=== PATIENT | female | born 1945 | race Caucasian/White ===

== ENCOUNTER → 2023-05-13 07:26 | Outpatient (CLI) | payer MEDICARE, BC, SELFPAY ==
[2023-05-13 08:25] LABS: Add Manual Diff / Slide Review NO; Basophils Absolute Auto 100 /uL (0-100); Basophils Percent Auto 0.5 % (0-2); Eosinophils Absolute Auto 400 /uL (0-450); Eosinophils Percent Auto 3.4 % (2-4); Hematocrit 43.4 % (36-46); Hemoglobin 14.5 g/dL (12.0-16.0); Lymphocytes Absolute Auto 2700 /uL (1100-4500); Lymphocytes Percent Auto 22.3 % (25-40); Mean Corpuscular HGB Conc 33.4 % (30-36); Mean Corpuscular Hemoglobin 29.6 PG (26-34); Mean Corpuscular Volume 88.5 fL (80-100); Monocytes Absolute Auto 1000 /uL (0-900); Monocytes Percent Auto 7.9 % (3-14); Neutrophils Absolute Auto 8100 /uL (1500-7000); Neutrophils Percent Auto 65.9 % (50-75); Platelet Count 170 X10^3/uL (150-400); Red Cell Distribution Width 14.9 % (11.6-14.8); White Blood Cell Count 12.3 X10^3/uL (4.5-11.0)
[2023-05-13 08:47] LABS: Alanine Aminotransferase 27 IU/L (<35); Albumin 3.9 g/dL (3.5-5.0); Albumin Globulin Ratio 1.6 (1.0-2.8); Alkaline Phosphatase 74 U/L (38-126); Aspartate Aminotransferase 26 IU/L (14-36); BUN Creatinine Ratio 30.3 (6-22); Bilirubin Total 0.8 mg/dL (0.2-1.3); Blood Urea Nitrogen 23 mg/dL (7-17); Calcium 9.5 mg/dL (8.4-10.2); Carbon Dioxide 28 mmol/L (22-32); Chloride 108 mmol/L (98-107); Cholesterol 142 mg/dL (140-199); Estimated Glomerular Filt Rate > 60 mL/min (>60); Globulin 2.5 g/dL (1.7-4.1); Glucose 88 mg/dL (80-110); HDL Cholesterol 47 mg/dL (40-60); HEMOLYSIS < 15 (0-50); LDL Cholesterol Calculated 78 mg/dL (<100); Potassium 4.5 mmol/L (3.4-5.1); Sodium 141 mmol/L (137-145); Total Protein 6.4 g/dL (6.3-8.2); Triglycerides 87 mg/dL (35-150)
[2023-05-13 09:21] LABS: TSH w/ Reflex to FT4 2.14 uIU/mL (0.47-4.68)
== END ==
PROVIDERS: PCP Family Medicine; Referring Provider Pediatrics; Visit Provider Pediatrics
DX: E03.9 Hypothyroidism, unspecified (principal); L40.9 Psoriasis, unspecified; J45.909 Unspecified asthma, uncomplicated; L30.9 Dermatitis, unspecified; M81.0 Age-related osteoporosis without current pathological fracture; T78.40XA Allergy, unspecified, initial encounter
CPT/HCPCS: 36415; 80053; 80061; 82306; 84443; 85025

== ENCOUNTER → 2023-06-04 08:24 | Outpatient (CLI) | payer MEDICARE, BC, SELFPAY ==
--- NOTE | 2023-06-04 08:26 | DI.RAD.S_ITS ---
PROCEDURE: XR CHEST 2V INDICATIONS: pedal edema x 3 days; hx HF TECHNIQUE: 2 views of the chest were acquired. COMPARISON: None. FINDINGS: Surgical changes and devices: None. Lungs and pleura: Linear bandlike opacities present at both mid lungs, probably scarring and/or atelectasis. There is prominence of the pulmonary interstitium and the pulmonary vasculature appears prominent. No pleural effusion or pneumothorax. Mediastinum: Cardiac silhouette is enlarged. Bones and chest wall: No suspicious bony abnormalities. Soft tissues appear unremarkable. IMPRESSION: Findings consistent with mild fluid overload/CHF. Linear and bandlike opacities present in both lungs, likely atelectasis and/or scarring but aspiration or pneumonia are difficult to exclude. Dictated by: Armani Albarran M.D. on 06/04/2023 at 8:46 Approved by: Armani Albarran M.D. on 06/04/2023 at 8:49
[2023-06-04 08:48] LABS: Add Manual Diff / Slide Review NO; Basophils Absolute Auto 200 /uL (0-100); Basophils Percent Auto 1.1 % (0-2); Eosinophils Absolute Auto 500 /uL (0-450); Eosinophils Percent Auto 3.8 % (2-4); Hematocrit 45.7 % (36-46); Hemoglobin 15.3 g/dL (12.0-16.0); Lymphocytes Absolute Auto 2800 /uL (1100-4500); Lymphocytes Percent Auto 19.4 % (25-40); Mean Corpuscular HGB Conc 33.5 % (30-36); Mean Corpuscular Hemoglobin 29.9 PG (26-34); Mean Corpuscular Volume 89.2 fL (80-100); Monocytes Absolute Auto 1100 /uL (0-900); Monocytes Percent Auto 7.3 % (3-14); Neutrophils Absolute Auto 9800 /uL (1500-7000); Neutrophils Percent Auto 68.4 % (50-75); Platelet Count 206 X10^3/uL (150-400); Red Blood Cell Count 5.12 X10^6/uL (4.0-5.2); Red Cell Distribution Width 14.6 % (11.6-14.8); White Blood Cell Count 14.4 X10^3/uL (4.5-11.0)
[2023-06-04 09:03] LABS: Alanine Aminotransferase 34 IU/L (<35); Albumin 4.1 g/dL (3.5-5.0); Albumin Globulin Ratio 1.4 (1.0-2.8); Alkaline Phosphatase 76 U/L (38-126); Aspartate Aminotransferase 31 IU/L (14-36); BUN Creatinine Ratio 29.7 (6-22); Blood Urea Nitrogen 22 mg/dL (7-17); Calcium 9.6 mg/dL (8.4-10.2); Carbon Dioxide 27 mmol/L (22-32); Chloride 109 mmol/L (98-107); Estimated Glomerular Filt Rate > 60 mL/min (>60); Glucose 114 mg/dL (80-110); HEMOLYSIS 18 (0-50); Potassium 4.8 mmol/L (3.4-5.1); Sodium 141 mmol/L (137-145); Total Protein 7.1 g/dL (6.3-8.2)
[2023-06-04 09:10] LABS: NT-proBNP (BNP-Adult 18+) 95 pg/mL (<450)
== END ==
PROVIDERS: PCP Family Medicine; Referring Provider Student in an Organized Health Care Education/Training Program; Visit Provider Student in an Organized Health Care Education/Training Program
DX: R06.02 Shortness of breath (principal); R60.0 Localized edema
CPT/HCPCS: 36415; 71046; 80053; 83880; 85025

== ENCOUNTER → 2023-07-06 09:09 | Outpatient (CLI) | payer MEDICARE, BC, SELFPAY ==
[2023-07-06 10:04] LABS: Add Manual Diff / Slide Review NO; Basophils Absolute Auto 100 /uL (0-100); Basophils Percent Auto 0.9 % (0-2); Eosinophils Absolute Auto 500 /uL (0-450); Eosinophils Percent Auto 3.9 % (2-4); Hematocrit 41.6 % (36-46); Hemoglobin 14.1 g/dL (12.0-16.0); Lymphocytes Absolute Auto 3100 /uL (1100-4500); Lymphocytes Percent Auto 23.9 % (25-40); Mean Corpuscular HGB Conc 33.9 % (30-36); Mean Corpuscular Hemoglobin 29.6 PG (26-34); Mean Corpuscular Volume 87.3 fL (80-100); Monocytes Absolute Auto 1100 /uL (0-900); Monocytes Percent Auto 8.7 % (3-14); Neutrophils Absolute Auto 8100 /uL (1500-7000); Neutrophils Percent Auto 62.6 % (50-75); Platelet Count 235 X10^3/uL (150-400); Red Blood Cell Count 4.76 X10^6/uL (4.0-5.2); Red Cell Distribution Width 13.8 % (11.6-14.8)
[2023-07-06 10:30] LABS: Alanine Aminotransferase 29 IU/L (<35); Albumin 3.7 g/dL (3.5-5.0); Albumin Globulin Ratio 1.3 (1.0-2.8); Alkaline Phosphatase 73 U/L (38-126); Aspartate Aminotransferase 30 IU/L (14-36); BUN Creatinine Ratio 36.2 (6-22); Bilirubin Total 0.7 mg/dL (0.2-1.3); Blood Urea Nitrogen 25 mg/dL (7-17); Calcium 9.7 mg/dL (8.4-10.2); Carbon Dioxide 26 mmol/L (22-32); Chloride 107 mmol/L (98-107); Estimated Glomerular Filt Rate > 60 mL/min (>60); Globulin 2.8 g/dL (1.7-4.1); Glucose 82 mg/dL (80-110); HEMOLYSIS < 15 (0-50); Lipase 35 U/L (23-300); Potassium 4.5 mmol/L (3.4-5.1); Sodium 139 mmol/L (137-145); Total Protein 6.5 g/dL (6.3-8.2)
== END ==
PROVIDERS: PCP Family Medicine; Referring Provider Family Medicine; Visit Provider Family Medicine
DX: R10.32 Left lower quadrant pain (principal); R60.9 Edema, unspecified; K29.70 Gastritis, unspecified, without bleeding
CPT/HCPCS: 36415; 80053; 83690; 85025

== ENCOUNTER → 2023-07-07 11:16 | Outpatient (CLI) | payer MEDICARE, BC, SELFPAY ==
--- NOTE | 2023-07-07 11:21 | DI.CT.S_ITS ---
PROCEDURE: CT ABDOMEN PELVIS W CON INDICATIONS: left lower quadrant pain TECHNIQUE: After the administration of IV contrast, axial sections were acquired from the lung bases to the pubic symphysis. Coronal and sagittal reformats were performed. For radiation dose reduction, the following was used: automated exposure control, adjustment of mA and/or kV according to patient size. COMPARISON: None. FINDINGS: Image quality: Excellent. Lung bases: Unremarkable. Heart: No significant findings. ABDOMEN: Liver: Unremarkable. Gallbladder: Unremarkable. Biliary ducts: Unremarkable. Pancreas: Unremarkable. Spleen: Calcified granulomas can be seen within the spleen. The spleen demonstrates normal size and demonstrates no suspicious lesion. Adrenal Glands: Unremarkable. Kidneys and Ureters: There is a nonobstructing right-sided kidney stone, as on series 2, image 45 measuring 6 mm and 500 Hounsfield units. Simple appearing water density left renal cysts are seen. The kidneys demonstrate normal size and enhance symmetrically. There is no hydronephrosis. Stomach and Bowel: There is moderate sigmoid diverticulosis. Moderate wall thickening can be seen. Minimal surrounding inflammatory change can be seen. More proximal colon is within normal limits. The stomach is decompressed at the time of this study, limiting its evaluation. No dilated loops of small bowel are seen. Apparent prior appendectomy. Peritoneum: No abnormal intraperitoneal fluid. No free air. Ventral Wall: A trace periumbilical hernia is seen, containing fat. Abdominal Nodes: No retroperitoneal or mesenteric adenopathy by size criteria. Vessels: Aorta and inferior vena cava are normal in size. Atherosclerotic calcification is noted. PELVIS: Pelvic Organs: The uterus appears normal for age. There is a 5.1 cm right adnexal mass, as on series 3, image 37. Bladder: Unremarkable. Pelvic Nodes: No enlarged lymph nodes. Miscellaneous: No inguinal hernias are seen. Bones: At L3 vertebral body hemangioma is seen, as on series 4, image 29. Focal L5-S1 degenerative change is seen. Milder degenerative changes are seen elsewhere. IMPRESSION: Mild diverticulitis, without findings of perforation or abscess. When clinically appropriate (following adequate treatment of the patient's current clinical episode) a colonoscopy is recommended for further evaluation for a potential underlying mass (if not already recently done). There is a 5.1 cm right adnexal mass. Please consider an indolent cystic neoplasm in a patient of this age. - For further workup, please consider a dedicated follow-up pelvic ultrasound. Additional findings: Nonobstructing right-sided kidney stone Simple appearing left renal cysts Trace fat containing periumbilical hernia L3 vertebral body hemangioma Focal L5-S1 degenerative change Apparent prior appendectomy Dictated by: Joseph Cortes M.D. on 07/07/2023 at 15:28 Approved by: Joseph Cortes M.D. on 07/07/2023 at 15:34
[2023-07-07 15:40] LABS: Appearance Urine UA CLEAR; Bilirubin Urine UA NEGATIVE (NEGATIVE); Color Urine UA YELLOW; Glucose Urine UA NEGATIVE (Negative); Ketones Urine UA NEGATIVE (NEGATIVE); Leukocyte Esterase Urine UA 1+ (NEGATIVE); Nitrite Urine UA NEGATIVE (Negative); Occult Blood Urine UA NEGATIVE (Negative); Protein Urine UA NEGATIVE (Negative); Urobilinogen Urine UA 0.2 E.U./dL (0.2)
[2023-07-07 15:41] LABS: pH Urine UA 6.5 (4.5-8.0)
[2023-07-07 16:06] LABS: RBC Urine None Seen (0-5/HPF); WBC Urine 5-10/HPF (0-5/HPF)
[2023-07-07 16:07] LABS: Bacteria Urine Many (>30); Culture Indicated Urine Specimen Cultured; Renal Epithelial Cells Urine 1-5/HPF (0-1/HPF); Squamous Epithelial Cell Urine 1-5 /HPF (0-5/HPF)
[2023-07-07 19:08] LABS: Occult Blood 1 Negative (Negative); Occult Blood 2 Negative (Negative); Occult Blood 3 Negative (Negative)
[2023-07-13 18:07] LABS: Calprotectin, Stool 251 ug/g (0-120)
== END ==
PROVIDERS: PCP Family Medicine; Referring Provider Family Medicine; Visit Provider Family Medicine
DX: K92.1 Melena (principal); K57.32 Diverticulitis of large intestine without perforation or abscess without bleeding; R10.32 Left lower quadrant pain; R60.9 Edema, unspecified; K29.70 Gastritis, unspecified, without bleeding; R19.00 Intra-abdominal and pelvic swelling, mass and lump, unspecified site; N20.0 Calculus of kidney; N28.1 Cyst of kidney, acquired; D18.09 Hemangioma of other sites; M47.817 Spondylosis without myelopathy or radiculopathy, lumbosacral region
CPT/HCPCS: 74177; 81001; 82270; 83993; 87077; 87086; 87186; Q9967

== ENCOUNTER → 2023-07-23 13:25 | Outpatient (CLI) | payer MEDICARE, BC, SELFPAY ==
--- NOTE | 2023-07-23 13:27 | DI.US.S_ITS ---
PROCEDURE: US PELVIC COMPLETE INDICATIONS: RIGHT OVARIAN MASS? PRIOR CT TECHNIQUE: Real-time scanning was performed of the pelvic organs, with image documentation. Additional endovaginal scanning was necessary due to incomplete visualization of the adnexal and endometrial structures by transabdominal scanning. COMPARISON: [facility], CT, CT ABDOMEN PELVIS W CON, 07/07/2023, 11:27. FINDINGS: Uterus: Uterus is anteverted and normal in size at 7.4 x 2.9 x 3.7 cm. The myometrium is heterogeneous. The endometrium measures 4 mm combined thickness. The ovaries are not definitely visualized. There is a cystic structure in the region of the patient's right adnexa measuring 6 x 2.8 x 2.5 cm in maximal dimension. Other: No pathologic free abdominal or pelvic fluid. IMPRESSION: Cystic lesion in the region of the patient's right adnexa measuring 6 x 2.8 x 2.5 cm in maximal dimension. Given the imaging findings further workup of this with a female pelvic MRI with without intravenous gadolinium may be of further clinical value for further characterization. . We strive to produce accurate, complete, and clear reports of imaging services. To assist us in improving patient care, this report was composed using standard report templates and voice recognition software. Therefore, it may contain abnormal punctuation, insertions and/or omissions. Occasional wrong-word or sound-alike substitutions may occur. Though we review the report and make efforts to correct it, we do recommend that the report be read carefully in proper context to recognize any text inaccuracies. Dictated by: Henry Cardona M.D. on 07/23/2023 at 16:44 Approved by: Henry Cardona M.D. on 07/23/2023 at 16:50
== END ==
PROVIDERS: PCP Family Medicine; Referring Provider Family Medicine; Visit Provider Family Medicine
DX: N83.8 Other noninflammatory disorders of ovary, fallopian tube and broad ligament (principal)
CPT/HCPCS: 76856

== ENCOUNTER → 2023-09-12 09:46 | Outpatient (CLI) | payer MEDICARE, BC, SELFPAY ==
--- NOTE | 2023-09-12 09:47 | DI.MRI.S_ITS ---
PROCEDURE: MR PELVIS WO/W CON INDICATIONS: cyst, right side. 5-6cm. TECHNIQUE: Coronal HASTE, sagittal breath-hold T2 FSE; axial T1 FSE with and without fat saturation through the pelvis. Optional long- and short-axis uterine nonbreath-hold T2 FSE through the uterus. Sagittal or axial dynamic VIBE during administration of contrast. Post-contrast axial or coronal VIBE/2-D FLASH with fat saturation from the iliac crests to the symphysis. Optional diffusion weighted imaging and ADC may be performed. COMPARISON: [facility], US, US PELVIC COMPLETE, 07/23/2023, 13:40. [facility], CT, CT ABDOMEN PELVIS W CON, 07/07/2023, 11:27. FINDINGS: Image quality: Excellent. Uterus: Uterus is normal in size. Endometrium is normal in thickness. Junctional zone is normal in thickness at 12 mm or less. Nabothian cysts are present. Adnexa: Right ovarian cyst measuring 6 x 2.8 x 2.5 cm. The cyst has a smooth wall, without internal papillary projections. Urinary system: Bladder wall is normal in thickness. Distal ureters are non distended. Urethra appears normal in morphology. Nodes and vessels: No pelvic or inguinal adenopathy by size criteria. Iliac vessels are normal in size. Bowel and peritoneum: No pathologic free pelvic fluid. Inferior colon and small bowel loops are normal in caliber. Extensive colonic diverticula. There is a 5.3 cm segment of mild wall thickening with mild mural edema within the sigmoid colon. Soft tissues: No inguinal hernias. No findings of pelvic floor incompetence in the absence of provocation. Bones: Marrow demonstrates normal overall signal. IMPRESSION: O-RADS 2 right ovarian cyst. Recommend 1 year follow-up with ultrasound. Suspected mild/early diverticulitis of the sigmoid colon. Alternatively, malignancy is also consideration given wall thickening. Correlate with symptoms and consider GI referral for outpatient diagnostic colonoscopy if negative for pain or symptoms. Dictated by: Hakan Booker M.D. on 09/14/2023 at 8:49 Approved by: Hakan Booker M.D. on 09/14/2023 at 8:54
== END ==
LOC: MRI 09:47
PROVIDERS: Family Provider Family Medicine; PCP Family Medicine; Referring Provider Family Medicine; Visit Provider Family Medicine
DX: N83.8 Other noninflammatory disorders of ovary, fallopian tube and broad ligament (principal); N83.201 Unspecified ovarian cyst, right side; K57.90 Diverticulosis of intestine, part unspecified, without perforation or abscess without bleeding
CPT/HCPCS: 72197; A9579

== ENCOUNTER 2023-11-09 09:56 | Day surgery (SDC) | payer MEDICARE, BC, SELFPAY ==
--- NOTE | 2023-11-09 | PATH_ITS ---
[facility] Accession Number: [id number] No. of containers..01 Tissue . 01 Material submitted: . colon - CECAL POLYP . 01 Diagnosis: CECUM, POLYP: Tubular adenoma. [facility] 11/11/2023 1110 Local . 01 Electronically signed: . Jewels Min MD, Pathologist NPI- [id number] . 01 Gross description: . CECAL POLYP: Received in formalin is 1 fragment(s) of bolanos, soft tissue measuring 0.3 x 0.3 x 0.2 cm submitted entirely in 1 cassette(s) /ROMINA 11/10/20237 Local . 01 Pathologist provided ICD-10: D12.0 . 01 CPT . 149010 Specimen Comment: A courtesy copy of this report has been sent to [phone] Performed at: 01 [facility] [address] [place] [address], [place], [place] [id number] MD Luke Fry MD Phone: [phone]
[2023-11-09 10:21] VITALS: BP 132/66; PULSE 79; RESP 20; TEMP 36.3; O2SAT 97
[2023-11-09] MEDS: LACTATED RINGERS 1,000 ML 42 ML IV (10:26)
[2023-11-09] MEDS: OXYMETAZOLINE NASAL SPRAY 30 ML 2 SPRAYS NASAL (13:03)
--- NOTE | 2023-11-09 13:05 | PM.HP.1 ---
History of Present Illness History of Present Illness Date Patient Seen: 11/09/23 Time Patient Seen: 13:05 Chief complaint: Screening Colonoscopy Narrative: 77-year-old woman here for screening colonoscopy. No abdominal concerns. No family history of intestinal malignancy. [facility] Medical History Osteoarthritis (~2019) Arthritis Chicken pox (~1949) History of urinary incontinence (~2019) Gastritis (~2018) Thyroid nodule (~2003) Hyperthyroidism (~2003) Essential hypertension (~2022) Actinic keratosis Psoriasis (~1961) Eczema (~1961) Asthma Allergies Personality disorder (~1959) Bulimia (~1959) Osteoporosis (~2014) Foot pain (~1963) Chronic back pain Measles (~1949) TMJ (dislocation of temporomandibular joint) Recurrent sinusitis Glaucoma (~2018) Cataracts, bilateral (~2018) Hypothyroidism Surgical History Cyst, dermoid, arm Skin tumor (~1964) Anesthesia History of tubal ligation (~1983) Family History Father Cancer Mother Cancer Brother Cancer Brother Cancer Brother Suicide Grandfather History of heart disease Grandmother Cancer Family/Other History of heart disease Social History Smoking Status: Never smoker alcohol intake: never Meds Home Medications and Allergies Home Medications Medication Instructions Recorded Confirmed Type budesonide 90 mcg/actuation breath 2 inh inhalation BID #1 ea 05/07/23 11/09/23 Rx activated powder inhaler albuterol sulfate 90 mcg/actuation 2 puff inhalation Q4-6H PRN wheeze 05/10/23 11/09/23 Rx aerosol inhaler (Ventolin HFA) or SOB #3 units arformoterol 15 mcg/2 mL solution inhalation 05/10/23 09/10/23 History for nebulization montelukast 10 mg tablet 10 mg PO BEDTIME #90 tabs 05/10/23 11/09/23 Rx azelastine 205.5 mcg (0.15 %) 2 spray intranasal DAILY #30 mL 06/04/23 11/09/23 Rx nasal spray alprazolam 0.25 mg tablet 0.125 mg (1/2 x 0.25 mg) PO ONCE 08/31/23 11/09/23 Rx PRN claustrophobia re MRI #2 tabs telmisartan 40 1 tab PO DAILY #90 tabs 09/10/23 11/09/23 Rx mg-hydrochlorothiazide 12.5 mg tablet levothyroxine 50 mcg tablet 50 mcg PO DAILY #90 tabs 09/24/23 11/09/23 Rx fluticasone furoate 100 1 inh inhalation DAILY #60 ea 10/18/23 11/09/23 Rx mcg-vilanterol 25 mcg/dose inhalation powder (Breo Ellipta) hydrochlorothiazide 12.5 mg tablet 12.5 mg PO DAILY #30 tabs 10/25/23 11/09/23 Rx semaglutide 0.25 mg or 0.5 mg (2 See Rx Instructions SUBCUT QWEEK 11/09/23 11/09/23 Rx mg/3 mL) subcutaneous pen injector #6 mL ([employer]) Allergies Allergy/AdvReac Type Severity Reaction Status Date / Time No Known Drug Allergies Allergy Verified 11/09/23 10:11 Exam Vital Signs (past 8 hours): - 11/09/23 10:21 Temperature 97.4 F L Pulse Rate 79 Respiratory Rate 20 Blood Pressure 132/66 Pulse Oximetry 97 Oxygen Delivery Method Room Air Oxygen Delivery Method Room Air Narrative Exam Narrative: General adult woman alert oriented no acute distress Chest nonlabored respiration Extremities warm well perfused Assessment & Plan Assessment & Plan narrative: The patient requires colorectal screening and colonoscopy is recommended. Technical details were discussed. Risks, benefits, alternatives explained. Risks including but not limited to myocardial infarction, aspiration, bleeding, pain, missed lesion, incomplete examination, need for further radiographic studies, colonic perforation, and need for major abdominal surgery were discussed. All questions were answered to their satisfaction, and they are in agreement with this plan.
--- NOTE | 2023-11-09 13:41 | P.OP.COLON_ITS ---
Operative Date/Time/Diagnoses Date of procedure: 11/09/23 Time of procedure: 13:41 Pre-op diagnosis: Colorectal screening Procedure & Clinicians Study performed: Colonoscopy and polypectomy Same procedure as scheduled: Yes Indications: Colorectal screening Surgeon: Antonino Rolle Procedure Notes Procedure in detail: The history and physical was performed/updated and the patient is ASA class is 3. The procedure was discussed in detail with the patient. Potential risks complications including infection, bleeding, missed diagnosis, perforation, need for surgery, and were explained. Their questions were answered and informed consent was obtained. Patient was brought to the procedure room and placed standard monitoring equipment. The patient's vital signs were monitored continuously throughout the entire procedure. Prior to starting time-out was performed. The patient was placed in the left lateral recumbent position. Procedural sedation was administered by anesthesia. Examination began with a thorough inspection of the perianal area there was no evidence of fissures, fistulae, external hemorrhoids or cutaneous malignancy. The colonoscopy scope was then placed into the anal canal and was advanced to the cecum, which was identified by the ileocecal valve, the appendiceal orifice and the confluence of the taenia. The scope was then slowly withdrawn examining colon thoroughly in all directions, irrigating it of any residual stool. The scope was retroflexed within the rectum The patient tolerated the procedure well. They will be discharged once criteria are met. The prep was of good/excellent quality. The withdrawl time was 7 mi nutes. FINDINGS * Extensive sigmoid diverticulosis * Cecum 3 mm polyp removed with biopsy forceps * Internal hemorrhoids Specimen(s): other (Cecal polyp) Impression: Colonic polyp x1 Post-procedure Recommendations: High fiber diet Plan for aftercare: Follow-up is dependent on pathology findings. Disposition: same day surgery
[2023-11-09 13:45] VITALS: BP 131/63; PULSE 83; RESP 17; TEMP 36.4; O2SAT 96
[2023-11-09 13:51] VITALS: BP 121/71; PULSE 76; RESP 14; TEMP 36.4; O2SAT 97
[2023-11-09 13:55] VITALS: BP 145/78; PULSE 77; RESP 17; TEMP 36.4; O2SAT 97
[2023-11-09 14:05] VITALS: BP 140/80; PULSE 76; RESP 16; O2SAT 97
== END 2023-11-09 14:11 | disposition home or self-care (01) ==
PROVIDERS: Family Provider Family Medicine; PCP Family Medicine; Referring Provider Surgery; Visit Provider Surgery
PROC: 0DJD8ZZ Inspection of Lower Intestinal Tract, Via Natural or Artificial Opening Endoscopic (ICD-10-PCS; CPT 45378; principal; 2023-11-09 10:45)
DX: Z12.11 Encounter for screening for malignant neoplasm of colon (principal); K57.30 Diverticulosis of large intestine without perforation or abscess without bleeding; K64.8 Other hemorrhoids; D12.0 Benign neoplasm of cecum
CPT/HCPCS: 45380; J2704

== ENCOUNTER 2023-12-03 13:45 | Outpatient (RCR) | payer MEDICARE, BC, SELFPAY ==
--- NOTE | 2023-09-29 13:40 | PT.OIE ---
Current Diagnoses Other chronic pain (09/29/23) Pain in right knee (09/29/23) Pain in left knee (09/29/23) Dorsalgia, unspecified (09/29/23) Past Medical History (Last Updated 08/11/23 @ 10:09 by Ericka Schneider DO) Actinic keratosis Allergies Asthma Bulimia (~1959) Cataracts, bilateral (~2019) Chronic back pain Eczema Foot pain (~1964) Glaucoma (~2019) Hypothyroidism Measles Osteoporosis Personality disorder (~1959) Psoriasis Recurrent sinusitis TMJ (dislocation of temporomandibular joint) Past Surgical History (Last Reviewed 06/04/23 @ 09:13 by Tammy Carbone PA-C) Anesthesia History of tubal ligation (~1983) Visit Care Team Role Provider Type Ericka Schneider DO Attending Provider Physician Family Provider Primary Care Provider Referring Provider Specialty: Medical Address: [address] [place] [address], [address], [address] Email: [email or web address] Physical Therapy Initial Evaluation PT-OP-A Visit Information Start: 09/29/23 09:02 Freq: Status: Active Protocol: Document 09/29/23 09:02 NM (Rec: 09/29/23 10:30 NM [id number]) Out-Patient Physical Therapy Visit Information Visit Information Visit Type Initial Evaluation Visit Note KX after 19th visit Visit Start Time 09:00 Visit Stop Time 09:45 Total Visit Minutes 45 Visit Number 1 Evaluation Information Evaluation Date 09/29/23 Precautions Precautions Fall risk PT-OP-B Current Condition Start: 09/29/23 09:02 Freq: Status: Active Protocol: Document 09/29/23 09:02 NM (Rec: 09/29/23 10:30 NM [id number]) Current Condition History of Current Condition Onset Date early 2021 Current Complaints BLE weakness, pain in anterolateral hips History of Current Condition Pt presents to clinic with occasional pain in her lumbar spine, along with B hip and knee pain beginning in early 2021. Pt reports that she used to be sedentary and has lost a lot of weight; however, she is just very weak and has pain with activity. She reports difficulty with ambulation, particularly due to pain in the front of her hips. 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 She developed lymphedema recently and is being treated for that as well. Overall, she reports extensive fatigue with activities, particularly when having to stand or ambulate for greater than 10 minutes; relieved with rest. She also reports knee/hip pain with stairs, particulary during descent. She reports no falls but states that she feels off balance during standing and gait. She used to use a spc for gait for the past 10-11 months, but reports that she has felt stronger in the last 2-3 weeks and hasn't needed the spc (taking the stairs 5- 6x/day at home). Previous meniscus injury to L knee; current injury to L shoulder from lifting an object last week. 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 Treatment Goals Patient/Caregiver Goals Decrease pain, get back to ballroom dancing Current Functional Impairments (Reported) Functional Limitations- ADL's Difficulty with ADLs involving fwd trunk flexion Functional Limitations- Mobility/Gait Unable to walk/stand >10 min due to B hip and knee pain, prn spc use PT-OP-C Subjective Start: 09/29/23 09:02 Freq: Status: Active Protocol: Document 09/29/23 09:02 NM (Rec: 09/29/23 10:30 NM [id number]) OP-PT Subjective Patient Comments Patient Comments see pt report Patient Questionnaires Lower Extremity Functional Scale LEFS Score 32/80 Oswestry Low Back Index Oswestry Score 40/100 OP-PT Pain Assessment Location Knees Pain Location Details B knees either side of patella Intensity 0 Scale Used Numeric (0 - 10) Description Aching,Sharp Description- Other worst 4/10 with activity Frequency Occasional Pain Duration during ambulation, standing; relieved almost immediately with sitting Radiating Location none Pain Aggravating Factors Position,Changing Position,ADL 's,Activity,Exercise,Standing, Walking Pain Alleviating Factors Heat,Sitting,Rest Hips Pain Location Details B lateral hips near greater trochanter, occasional anterior hip pain Intensity 0 Scale Used Numeric (0 - 10) Description Aching,Sharp Description- Other L 8/10 worst, R 2/10 hip worst Frequency Occasional Pain Duration during ambulation, standing; relieved almost immediately with sitting Radiating Location none Pain Aggravating Factors Position,Changing Position,ADL 's,Activity,Exercise,Standing, Walking,Stair Climbing Pain Alleviating Factors Heat,Sitting,Rest lumbar spine Pain Location Details L4-L5- midline Intensity 0 Scale Used Numeric (0 - 10) Description Aching,Sharp Description- Other worst 3/10 Frequency Occasional Pain Duration during fwd trunk flexion Radiating Location none, localized, no nerve symptoms Pain Aggravating Factors Position,Changing Position, Bending Pain Alleviating Factors Heat,Sitting,Rest Home Pain Medication Use Pain Medications Used Yes: prn aleve for inflammation Pain Behaviors Pain Behaviors Guarding,Holding Area Comments Pain Comments Reports most discomfort at B hips, L>R PT-OP-D Balance Start: 09/29/23 09:02 Freq: Status: Active Protocol: Document 09/29/23 09:02 NM (Rec: 09/29/23 10:30 NM [id number]) OP-PT Balance Assessment Sitting Balance Static Sitting Balance Ability Normal Dynamic Sitting Balance Ability Normal Standing Balance Static Standing Balance Ability Fair Dynamic Standing Balance Ability Fair Balance Tests Romberg Romberg 10 seconds, mild trunk sway, no LOB Single Limb Standing Single Limb- Right 1 second Single Limb- Left 2 seconds Tandem Tandem Standing difficulty with getting into position; maintains <2 sec Espinal Fall Scale Copyright Permission PT-OP-E Functional Tests Start: 09/29/23 09:02 Freq: Status: Active Protocol: Document 09/29/23 09:02 NM (Rec: 09/29/23 10:30 NM [id number]) Functional Tests 30 Second Sit to Stand Test Score 10 reps Comments no pain reported but slow; no UE use Tinetti Balance and Gait Assessment Balance Score 11 Gait Score 7 Composite Score 18/28 PT-OP-F Manual Assessment Start: 09/29/23 09:02 Freq: Status: Active Protocol: Document 09/29/23 09:02 NM (Rec: 09/29/23 10:30 NM [id number]) Manual Assessments Soft Tissue Assessment Soft Tissue Mobility Assessment Mild soft tissue restrictions of B lumbar paraspinals/QL, but not tender to palpation. Demos B hip flexor tightness, pain with R hip pain Joint Mobility Assessment Joint Mobility Assessment Full L hip PROM. Limited R hip PROM, demos guarding with flexion verena into IR>ER and painful. No instability of B knees noted. No clicking, popping, locking, giving out of B hips or knees. PT-OP-G Mobility & Gait Start: 09/29/23 09:02 Freq: Status: Active Protocol: Document 09/29/23 09:02 NM (Rec: 09/29/23 10:30 NM [id number]) OP Mobility Evaluation Bed Mobility Rolling Difficulty with rolling due to pain. Sits up from supine to EOB then transfers to prone OP Gait Assessment Gait Gait Assistance Required: Independent Distance (Feet) 150 Assistive Devices Assistive Device None Gait Deviations General Gait Pattern Antalgic,Flexed Trunk Factors Limiting Gait Function Factors Limiting Gait Function Decreased Activity Tolerance, Decreased Strength,Limited Range of Motion,Pain,Poor Balance Comments Gait Comments Antalgic gait pattern with fwd flexed trunk posture, mild- mod trunk sway. Lateral trunk deviation PT-OP-H Neuro Start: 09/29/23 09:02 Freq: Status: Active Protocol: Document 09/29/23 09:02 NM (Rec: 09/29/23 10:30 NM [id number]) Sensation Evaluation Gross Sensation Gross Sensation WNL Comments Summary Comments BLE intact to light touch sensation equally despite reported numbness in L 2nd and 3rd toes Deep Tendon Reflex & Clonus Assessment Deep Tendon Reflex Bilateral Patellar Deep Tendon Reflex 1+ Diminished PT-OP-J Posture/Palpation/Skin Start: 09/29/23 09:02 Freq: Status: Active Protocol: Document 09/29/23 09:02 NM (Rec: 09/29/23 10:30 NM [id number]) Posture Evaluation Position Standing Evaluation View posterior, lateral Head/C-Spine Posture Forward Head L-Spine Posture Increased Lordosis Shoulder Posture (L) Forward,(R) Forward,(L) Elevated Scapula Posture (L) Protracted,(R) Protracted Arm Posture (L) Internally Rotated,(R) Internally Rotated Pelvis Posture Anteriorly Tilted,(L) Iliac Crest Superior Weight Distribution Weight Shifted Right Knee Posture (L) Genu Varus,(R) Genu Varus Patellar Posture (L) Superior,(R) Superior Palpation Assessment Location Lumbar spine Palpation Location L4-S1, SI joints, Palpation Findings Tenderness Palpation Details Tender to palpation along spinous processes of L4-S1, L4 is most tender. B hips Palpation Location greater trochanter, gluteals Palpation Findings Soft Tissue Tightness,Spasm, Muscle Guarding,Tenderness Palpation Details Tenderness to B greater trochanters (L>R), worse with internal/external rotation. Muscle guarding and tenderness of B gluteals, L>R. PT-OP-K Range of Motion Start: 09/29/23 09:02 Freq: Status: Active Protocol: Document 09/29/23 09:02 NM (Rec: 09/29/23 10:30 NM [id number]) Lumbar Spine Range of Motion Lumbar Spine Active Percentage Testing Position Standing Flexion 80 Extension 100 Rotation Left 100 Rotation Right 100 Lateral Flexion Left 75 Lateral Flexion Right 75 Comments Minimal low back pain with trunk flexion, none with any other motions. Cued to keep knees straight during flex/ext motions Hip Goniometric Range of Motion Hip Right Flexion w/Knee Flexed 90 Internal Rotation 20 External Rotation 20 Comments Passive hip flexion 110 deg. Hip/greater trochanter pain with internal rotation Left Flexion w/Knee Flexed 115 Internal Rotation 25 External Rotation 30 Comments Passive hip flexion 110 deg. Hip/greater trochanter pain with internal rotation. Knee Goniometric Range of Motion Knee ROM Limitations Comments B knee ROM WFL PT-OP-L Special Tests Start: 09/29/23 09:02 Freq: Status: Active Protocol: Document 09/29/23 09:02 NM (Rec: 09/29/23 10:30 NM [id number]) Special Tests Lumbar Spine Special Tests Straight Leg Raise Test Results negative Comments does not reproduce local or referred pain Michael/Quadrant Test Results negative Comments does not reproduce local or referred pain Hip Special Tests Scour Test Test Results negative bilaterally Anterior Labral Test Test Results negative bilaterally FADIR Test Results positive bilaterally (L>R) Comments Reproduces pain along B greater trochanter and posterior glutes. Moderate muscle guarding verena with L. Minimal pain reported in anterior hip/groin PT-OP-M Strength Start: 09/29/23 09:02 Freq: Status: Active Protocol: Document 09/29/23 09:02 NM (Rec: 09/29/23 10:30 NM [id number]) Trunk Strength Trunk Manual Muscle Testing Testing Position supine, sitting Flexion 3+ Fair+ Extension 4 Good Rotation Left 4 Good Rotation Right 4 Good Lateral Flexion Left 4 Good Lateral Flexion Right 4 Good Comments Able to withstand minimal resisted flexion, but not painful. Attempts to compensate, poor functional core stabilization verena with rolling Hip Strength Hip Manual Muscle Testing Right Flexion (L2) 3+ Fair+ Extension (S1) 3+ Fair+ Abduction 3+ Fair+ Adduction 3+ Fair+ External Rotation 3+ Fair+ Internal Rotation 3+ Fair+ Comments Pain with resisted IR > flexion Left Flexion (L2) 4- Good- Extension (S1) 4- Good- Abduction 4- Good- Adduction 4- Good- External Rotation 4- Good- Internal Rotation 3+ Fair+ Comments Pain with resisted IR Knee Strength Knee Manual Muscle Testing Right Flexion (S2) 4 Good Extension (L3) 4 Good Left Flexion (S2) 4 Good Extension (L3) 4 Good Ankle/Foot Strength Ankle and Foot Manual Muscle Testing Right Dorsiflexion (L4) 4+ Good+ Plantarflexion (S1) 4+ Good+ Left Dorsiflexion (L4) 4+ Good+ Plantarflexion (S1) 4+ Good+ PT-OP-Q Treatments Start: 09/29/23 09:02 Freq: Status: Active Protocol: Document 09/29/23 09:02 NM (Rec: 09/29/23 10:30 NM [id number]) Self-Care/Home Management Treatment Education Patient Education Body Mechanics,Fall Risk,Pain Management,Posture,Safety Other Education Educated on use of spc with balance difficulties, verena during inclement weather and to decrease fall risk. Brief education regarding rolling in bed, will need further education on log rolling or other rolling mechanics to decrease pain. PT-OP-T Assessment and Plan Start: 09/29/23 09:02 Freq: Status: Active Protocol: Document 09/29/23 09:02 NM (Rec: 09/29/23 10:30 NM [id number]) Physical Therapy Assessment Rehab Potential Rehabilitation Potential Good Evaluation Complexity Number of Personal Factors/Comorbidities 3 or More Number of Body Systems Impaired 4 or More Clinical Presentation at Evaluation Stable Impairments Impairments Activity Tolerance,Balance, Edema,Functional Activities, Functional Mobility,Gait, Integument,Pain,Posture,ROM, Sensation,Soft Tissue Mobility ,Strength,Transfers Goals Seven Impairment balance Impairment Tinetti 18/28 Short Term Goal (STG) Pt will improve Tinetti score to at least 20/28 in order to demonstate decrease fall risk and improved balance STG Duration 5 weeks Heat Treating Operator Goal (LTG) Pt will improve Tinetti score to at least 24/28 in order to demonstate decrease fall risk and improved balance LTG Duration 10 weeks Six Impairment balance Impairment tandem stance <2 seconds, difficulty getting into position Short Term Goal (STG) Pt will be able to position without assistance in tandem stance without LOB in order to demonstrate improved balance required for gait, recreational dancing STG Duration 5 weeks Heat Treating Operator Goal (LTG) Pt will be able to stand at least 15 seconds in tandem stance without LOB in order to demonstrate improved balance required for gait LTG Duration 10 weeks Five Impairment gait Impairment Pt reports unable to ambulate more than 10 minutes before a seated rest break due to pain Short Term Goal (STG) Pt will be able to ambulate using LRAD or no AD for community distances (at least 600 ft) in order to demonstrate improved BLE strength, pain management, and activity tolerance STG Duration 5 weeks Heat Treating Operator Goal (LTG) Pt will report that she can ambulate using LRAD or no AD for at least 20 minutes in order to demonstrate improved BLE strength, pain management, and activity tolerance LTG Duration 10 weeks Four Impairment strength Impairment R hip strength 3+/5 MMT Short Term Goal (STG) Pt will improve R hip global hip strength to at least 4/5 in order to demonstrate improved hip strength needed for gait, balance, and stairs STG Duration 5 weeks Care Home Goal (LTG) Pt will improve R hip global hip strength to at least 4+/5 in order to demonstrate improved hip strength needed for gait, balance, and stairs LTG Duration 10 weeks Three Impairment strength Impairment L hip strength 4-/5 except IR 3+/5 MMT Short Term Goal (STG) Pt will improve L global hip strength to at least 4/5 in order to demonstrate improved hip strength needed for gait, balance, and stairs STG Duration 5 weeks Care Home Goal (LTG) Pt will improve L global hip strength to at least 4+/5 in order to demonstrate improved hip strength needed for gait, balance, and stairs LTG Duration 10 weeks Two Impairment strength Impairment 30 second STS = 10 Care Home Goal (LTG) Pt will be able to perform at least 15 sit to stands within 30 seconds without compensation or pain in order to demonstrate improved BLE strength and tolerance for activity. LTG Duration 10 weeks One Impairment function Impairment LEFS 32/80 Care Home Goal (LTG) Pt will increase LEFS score to greater than 50/80 in order to demonstrate improved tolerance for ADLs and activity. LTG Duration 10 weeks Assessment Summary Assessment Pt is a 77 y.o. female presenting with BLE weakness and pain in her B hips, B knees, and lumbar spine. Her primary concerns are difficulty with gait and balance due to pain, weakness, and activity limitation. She demonstrates nearly full trunk ROM with reports of pain during forward trunk flexion; she demonstrates slight weaknesses in trunk strength, most limited in flexion. Bilateral hip AROM and PROM is limited, particularly in flexion. She is more limited and reports pain with B hip IR and some during hip ER, with the LLE more painful than RLE. Pt demonstrates weakness of B hips and knees, RLE only 3+/5 for all motions while LLE 4-/ 5 MMT except internal rotation 3+/5. Pt has negative Michael/ quadrant, straight leg raise, labral tests; however, pain is reproduced with FADIR test both in anterior hip and gluteals. Pt is tender to palpation at midline L4-S1, B greater trochanters (L>R), and B gluteal muscles (L>R). Gait is antalgic; pt occasionally uses a single point cane for ambulation but did not bring it to evaluation. She reports that she is unable to stand or ambulate for greater than 10 minutes due to pain and weakness before needing a seated rest break; thus, pt's ability to participate in ADLs /IADLs is limited. Symptoms are most consistent with glute weakness and hip OA though pt does not have a diagnosis. Tinetti score 18/28, indicating fall risk; pt also unstable with narrow MANNIE, difficulty with tandem stance or changing MANNIE. PT educated pt on fall risk, safety during gait and transfers, activity modification, and POC; which pt verbalizes agreement. Pt would benefit from significant BLE strengthening, gait and balance training, education regarding activity modification and pain neuroscience in order to decrease fall risk, improve pain symptoms, and increase activity tolerance. Physical Therapy Plan Frequency and Duration Frequency of Treatment 2x/Week Duration of treatment (weeks) 10 Plan of Care Start Date 09/29/23 Plan of Care End Date 12/08/23 Therapeutic Interventions Therapeutic Interventions Balance Training,Coordination Training,Gait Training,Home Exercise Program,Joint Mobilizations,Manual Therapy, Neuromuscular Re-education, Orthotic/Prosthetic Management ,Patient/Caregiver Education, Self-Care/Home Management, Sensory Integration,Soft Tissue Mobilization,Taping, Therapeutic Activities, Therapeutic Exercises Modalities Cold Pack/Ice Massage,Hot Packs Next Visit Focus/Plan Next Note Type Treatment Note Next Visit Plan Initiate BLE strengthening: clams, SL hip abd, gentle hip flex seated, STS, LAQ, gonzalez stretch, LTR, TA activation
--- NOTE | 2023-10-04 15:25 | PT.OTN ---
Current Diagnoses Other chronic pain (10/04/23) Pain in right knee (10/04/23) Pain in left knee (10/04/23) Dorsalgia, unspecified (10/04/23) Physical Therapy Treatment Note PT-OP-A Visit Information Start: 09/29/23 09:02 Freq: Status: Active Protocol: Document 10/04/23 09:04 NM (Rec: 10/04/23 09:48 NM [id number]) Out-Patient Physical Therapy Visit Information Visit Information Visit Type Treatment Note Visit Note KX after 19th visit Visit Start Time 09:04 Visit Stop Time 09:45 Total Visit Minutes 41 Visit Number 2 Evaluation Information Evaluation Date 09/29/23 Precautions Precautions Fall risk PT-OP-B Current Condition Start: 09/29/23 09:02 Freq: Status: Active Protocol: Document 09/29/23 09:02 NM (Rec: 09/29/23 10:30 NM [id number]) Current Condition History of Current Condition Onset Date early 2021 Current Complaints BLE weakness, pain in anterolateral hips History of Current Condition Pt presents to clinic with occasional pain in her lumbar spine, along with B hip and knee pain beginning in early 2021. Pt reports that she used to be sedentary and has lost a lot of weight; however, she is just very weak and has pain with activity. She reports difficulty with ambulation, particularly due to pain in the front of her hips. 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 She developed lymphedema recently and is being treated for that as well. Overall, she reports extensive fatigue with activities, particularly when having to stand or ambulate for greater than 10 minutes; relieved with rest. She also reports knee/hip pain with stairs, particulary during descent. She reports no falls but states that she feels off balance during standing and gait. She used to use a spc for gait for the past 10-11 months, but reports that she has felt stronger in the last 2-3 weeks and hasn't needed the spc (taking the stairs 5- 6x/day at home). Previous meniscus injury to L knee; current injury to L shoulder from lifting an object last week. 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 Treatment Goals Patient/Caregiver Goals Decrease pain, get back to ballroom dancing Current Functional Impairments (Reported) Functional Limitations- ADL's Difficulty with ADLs involving fwd trunk flexion Functional Limitations- Mobility/Gait Unable to walk/stand >10 min due to B hip and knee pain, prn spc use PT-OP-C Subjective Start: 09/29/23 09:02 Freq: Status: Active Protocol: Document 10/04/23 09:04 NM (Rec: 10/04/23 09:48 NM [id number]) OP-PT Subjective Patient Comments Patient Comments Pt reports 0/10 B hip, knee, back pain. Reports no changes since IE. She reports L shoulder pain. She has a doctor appt to today, possibly for her shoulder but she doesn't know. Presents without spc today but keeps in her car PT-OP-D Balance Start: 09/29/23 09:02 Freq: Status: Active Protocol: Document 09/29/23 09:02 NM (Rec: 09/29/23 10:30 NM [id number]) OP-PT Balance Assessment Sitting Balance Static Sitting Balance Ability Normal Dynamic Sitting Balance Ability Normal Standing Balance Static Standing Balance Ability Fair Dynamic Standing Balance Ability Fair Balance Tests Romberg Romberg 10 seconds, mild trunk sway, no LOB Single Limb Standing Single Limb- Right 1 second Single Limb- Left 2 seconds Tandem Tandem Standing difficulty with getting into position; maintains <2 sec Espinal Fall Scale Copyright Permission PT-OP-E Functional Tests Start: 09/29/23 09:02 Freq: Status: Active Protocol: Document 09/29/23 09:02 NM (Rec: 09/29/23 10:30 NM [id number]) Functional Tests 30 Second Sit to Stand Test Score 10 reps Comments no pain reported but slow; no UE use Tinetti Balance and Gait Assessment Balance Score 11 Gait Score 7 Composite Score PT-OP-F Manual Assessment Start: 09/29/23 09:02 Freq: Status: Active Protocol: Document 09/29/23 09:02 NM (Rec: 09/29/23 10:30 NM [id number]) Manual Assessments Soft Tissue Assessment Soft Tissue Mobility Assessment Mild soft tissue restrictions of B lumbar paraspinals/QL, but not tender to palpation. Demos B hip flexor tightness, pain with R hip pain Joint Mobility Assessment Joint Mobility Assessment Full L hip PROM. Limited R hip PROM, demos guarding with flexion verena into IR>ER and painful. No instability of B knees noted. No clicking, popping, locking, giving out of B hips or knees. PT-OP-G Mobility & Gait Start: 09/29/23 09:02 Freq: Status: Active Protocol: Document 09/29/23 09:02 NM (Rec: 09/29/23 10:30 NM [id number]) OP Mobility Evaluation Bed Mobility Rolling Difficulty with rolling due to pain. Sits up from supine to EOB then transfers to prone OP Gait Assessment Gait Gait Assistance Required: Independent Distance (Feet) 150 Assistive Devices Assistive Device None Gait Deviations General Gait Pattern Antalgic,Flexed Trunk Factors Limiting Gait Function Factors Limiting Gait Function Decreased Activity Tolerance, Decreased Strength,Limited Range of Motion,Pain,Poor Balance Comments Gait Comments Antalgic gait pattern with fwd flexed trunk posture, mild- mod trunk sway. Lateral trunk deviation PT-OP-H Neuro Start: 09/29/23 09:02 Freq: Status: Active Protocol: Document 09/29/23 09:02 NM (Rec: 09/29/23 10:30 NM [id number]) Sensation Evaluation Gross Sensation Gross Sensation WNL Comments Summary Comments BLE intact to light touch sensation equally despite reported numbness in L 2nd and 3rd toes Deep Tendon Reflex & Clonus Assessment Deep Tendon Reflex Bilateral Patellar Deep Tendon Reflex 1+ Diminished PT-OP-J Posture/Palpation/Skin Start: 09/29/23 09:02 Freq: Status: Active Protocol: Document 09/29/23 09:02 NM (Rec: 09/29/23 10:30 NM [id number]) Posture Evaluation Position Standing Evaluation View posterior, lateral Head/C-Spine Posture Forward Head L-Spine Posture Increased Lordosis Shoulder Posture (L) Forward,(R) Forward,(L) Elevated Scapula Posture (L) Protracted,(R) Protracted Arm Posture (L) Internally Rotated,(R) Internally Rotated Pelvis Posture Anteriorly Tilted,(L) Iliac Crest Superior Weight Distribution Weight Shifted Right Knee Posture (L) Genu Varus,(R) Genu Varus Patellar Posture (L) Superior,(R) Superior Palpation Assessment Location Lumbar spine Palpation Location L4-S1, SI joints, Palpation Findings Tenderness Palpation Details Tender to palpation along spinous processes of L4-S1, L4 is most tender. B hips Palpation Location greater trochanter, gluteals Palpation Findings Soft Tissue Tightness,Spasm, Muscle Guarding,Tenderness Palpation Details Tenderness to B greater trochanters (L>R), worse with internal/external rotation. Muscle guarding and tenderness of B gluteals, L>R. PT-OP-K Range of Motion Start: 09/29/23 09:02 Freq: Status: Active Protocol: Document 09/29/23 09:02 NM (Rec: 09/29/23 10:30 NM [id number]) Lumbar Spine Range of Motion Lumbar Spine Active Percentage Testing Position Standing Flexion 80 Extension 100 Rotation Left 100 Rotation Right 100 Lateral Flexion Left 75 Lateral Flexion Right 75 Comments Minimal low back pain with trunk flexion, none with any other motions. Cued to keep knees straight during flex/ext motions Hip Goniometric Range of Motion Hip Right Flexion w/Knee Flexed 90 Internal Rotation 20 External Rotation 20 Comments Passive hip flexion 110 deg. Hip/greater trochanter pain with internal rotation Left Flexion w/Knee Flexed 115 Internal Rotation 25 External Rotation 30 Comments Passive hip flexion 110 deg. Hip/greater trochanter pain with internal rotation. Knee Goniometric Range of Motion Knee ROM Limitations Comments B knee ROM WFL PT-OP-L Special Tests Start: 09/29/23 09:02 Freq: Status: Active Protocol: Document 09/29/23 09:02 NM (Rec: 09/29/23 10:30 NM [id number]) Special Tests Lumbar Spine Special Tests Straight Leg Raise Test Results negative Comments does not reproduce local or referred pain Michael/Quadrant Test Results negative Comments does not reproduce local or referred pain Hip Special Tests Scour Test Test Results negative bilaterally Anterior Labral Test Test Results negative bilaterally FADIR Test Results positive bilaterally (L>R) Comments Reproduces pain along B greater trochanter and posterior glutes. Moderate muscle guarding verena with L. Minimal pain reported in anterior hip/groin PT-OP-M Strength Start: 09/29/23 09:02 Freq: Status: Active Protocol: Document 09/29/23 09:02 NM (Rec: 09/29/23 10:30 NM [id number]) Trunk Strength Trunk Manual Muscle Testing Testing Position supine, sitting Flexion 3+ Fair+ Extension 4 Good Rotation Left 4 Good Rotation Right 4 Good Lateral Flexion Left 4 Good Lateral Flexion Right 4 Good Comments Able to withstand minimal resisted flexion, but not painful. Attempts to compensate, poor functional core stabilization verena with rolling Hip Strength Hip Manual Muscle Testing Right Flexion (L2) 3+ Fair+ Extension (S1) 3+ Fair+ Abduction 3+ Fair+ Adduction 3+ Fair+ External Rotation 3+ Fair+ Internal Rotation 3+ Fair+ Comments Pain with resisted IR > flexion Left Flexion (L2) 4- Good- Extension (S1) 4- Good- Abduction 4- Good- Adduction 4- Good- External Rotation 4- Good- Internal Rotation 3+ Fair+ Comments Pain with resisted IR Knee Strength Knee Manual Muscle Testing Right Flexion (S2) 4 Good Extension (L3) 4 Good Left Flexion (S2) 4 Good Extension (L3) 4 Good Ankle/Foot Strength Ankle and Foot Manual Muscle Testing Right Dorsiflexion (L4) 4+ Good+ Plantarflexion (S1) 4+ Good+ Left Dorsiflexion (L4) 4+ Good+ Plantarflexion (S1) 4+ Good+ PT-OP-Q Treatments Start: 09/29/23 09:02 Freq: Status: Active Protocol: Document 10/04/23 09:04 NM (Rec: 10/04/23 09:48 NM [id number]) Cardio Equipment Recumbent Stepper (Sci-Fit) Duration (Minutes) 4 Resistance 3 Seat Position 11 Other LE only; warm up Therapeutic Exercises Supine Exercises bridge Supine Exercise Name heels at 90 deg knee flex Side bilateral Equipment Used AROM Reps/Minutes 1x10 with 3 hold Comments reports no pain LTR Supine Exercise Name for lumbar spine mobility; d/c next session depending on tolerance Side bilateral Equipment Used cued to keep hips on table Reps/Minutes 1x30 Comments reports good stretch in lumbar spine, no hip pain reported november Supine Exercise Name alternating Side bilateral Equipment Used AROM only Reps/Minutes 1x10 Comments reports minimal pain with hip flexion at end range but none w initial ROM Luther stretch Supine Exercise Name reports tightness in L hip flexors Side bilateral Equipment Used single knee to chest, opposite knee straight Reps/Minutes 2x30 Comments reports good stretch feeling, no pain; R>L tightness, before LAQ Sidelying Exercises hip abduction Sidelying Exercise Name try next session for more challenge Sitting Exercises november Sitting Exercise Name 4/10 pain deep hip pain, so d/ c to supine LAQ Sitting Exercise Name performed after luther stretch Side bilateral Resistance lvl 2 teal around ankles Reps/Minutes 2x10 ea Comments reports medium difficulty; limited knee ext ROM R>L; cued no bwd lean hip abduction Side bilateral Resistance teal tb lvl 2 around thighs Reps/Minutes 2x12 Comments reports good feedback; progress next time (trial sidelying vs side step) Standing Exercises sit <> stand Side bilateral Resistance teal tb lvl 2 Equipment Used band around thighs Reps/Minutes 2x10 Comments cues for equal wb (favors RLE) , LLE placed slightly posterior for inc WB Self-Care/Home Management Treatment Education Patient Education Home Exercise Program Other Education HEP: sit to stand with band around thighs, luther stretch, LAQ with band, seated hip abd , bridge. Pt educated on importance of performing HEP, managing pain, use of spc when weather bad or feeling unstable PT-OP-T Assessment and Plan Start: 09/29/23 09:02 Freq: Status: Active Protocol: Document 10/04/23 09:04 NM (Rec: 10/04/23 09:48 NM [id number]) Physical Therapy Assessment Goals Seven Impairment balance Impairment Tinetti 18/28 Short Term Goal (STG) Pt will improve Tinetti score to at least 20/28 in order to demonstate decrease fall risk and improved balance STG Duration 5 weeks Snf Goal (LTG) Pt will improve Tinetti score to at least 24/28 in order to demonstate decrease fall risk and improved balance LTG Duration 10 weeks Six Impairment balance Impairment tandem stance <2 seconds, difficulty getting into position Short Term Goal (STG) Pt will be able to position without assistance in tandem stance without LOB in order to demonstrate improved balance required for gait, recreational dancing STG Duration 5 weeks Snf Goal (LTG) Pt will be able to stand at least 15 seconds in tandem stance without LOB in order to demonstrate improved balance required for gait LTG Duration 10 weeks Five Impairment gait Impairment Pt reports unable to ambulate more than 10 minutes before a seated rest break due to pain Short Term Goal (STG) Pt will be able to ambulate using LRAD or no AD for community distances (at least 600 ft) in order to demonstrate improved BLE strength, pain management, and activity tolerance STG Duration 5 weeks Optical Mechanic Goal (LTG) Pt will report that she can ambulate using LRAD or no AD for at least 20 minutes in order to demonstrate improved BLE strength, pain management, and activity tolerance LTG Duration 10 weeks Four Impairment strength Impairment R hip strength 3+/5 MMT Short Term Goal (STG) Pt will improve R hip global hip strength to at least 4/5 in order to demonstrate improved hip strength needed for gait, balance, and stairs STG Duration 5 weeks Snf Goal (LTG) Pt will improve R hip global hip strength to at least 4+/5 in order to demonstrate improved hip strength needed for gait, balance, and stairs LTG Duration 10 weeks Three Impairment strength Impairment L hip strength 4-/5 except IR 3+/5 MMT Short Term Goal (STG) Pt will improve L global hip strength to at least 4/5 in order to demonstrate improved hip strength needed for gait, balance, and stairs STG Duration 5 weeks Optical Mechanic Goal (LTG) Pt will improve L global hip strength to at least 4+/5 in order to demonstrate improved hip strength needed for gait, balance, and stairs LTG Duration 10 weeks Two Impairment strength Impairment 30 second STS = 10 Optical Mechanic Goal (LTG) Pt will be able to perform at least 15 sit to stands within 30 seconds without compensation or pain in order to demonstrate improved BLE strength and tolerance for activity. LTG Duration 10 weeks One Impairment function Impairment LEFS 32/80 Snf Goal (LTG) Pt will increase LEFS score to greater than 50/80 in order to demonstrate improved tolerance for ADLs and activity. LTG Duration 10 weeks Assessment Summary Assessment Initiated BLE strengthening for future balance and gait training. Initiated sit to stands with band around thighs for increased hip abduction activation and to prevent knee valgus; cued for eccentric control with lowering, demonstrates improved control with repetition. Pt initially reported hip pain with R LAQ, which resolved after luther stretch. Pt continues to have pain with active hip flex, 4/ 10, less in supine than sitting, R>L; reports prn pain with over lateral hip with hip abduction/ER AROM during hip flex in supine. Able to perform supine marching with minimal hip pain; discontinued hip flex in sitting. Tolerated supine lumbar trunk rotation well, reporting good stretch in lumbar trunk muscles with rotation and no reports of hip pain. Cues for correct execution and to remain pain free with exercises. Pt issued HEP with luther stretch, STS, LAQ, seated hip abd, and bridge; instructed to stop if increased pain occurs. Pt educated on bringing spc to sessions and when out in community despite not feeling like she needs to use the cane for balance; pt verbalizes agreement. Pt would benefit from skilled PT to address limitations in BLE strength, mobility, and balance/gait in order to decrease fall risk and increase activity tolerance. Physical Therapy Plan Frequency and Duration Frequency of Treatment 2x/Week Duration of treatment (weeks) 10 Plan of Care Start Date 09/29/23 Plan of Care End Date 12/08/23 Therapeutic Interventions Therapeutic Interventions Balance Training,Coordination Training,Gait Training,Home Exercise Program,Joint Mobilizations,Manual Therapy, Neuromuscular Re-education, Orthotic/Prosthetic Management ,Patient/Caregiver Education, Self-Care/Home Management, Sensory Integration,Soft Tissue Mobilization,Taping, Therapeutic Activities, Therapeutic Exercises Modalities Cold Pack/Ice Massage,Hot Packs Next Visit Focus/Plan Next Note Type Treatment Note Next Visit Plan Trial: teach rolling out of bed to R (possible log roll). Possible hip mobilizations depending on tolerance Continue BLE strengthening: clams/hip ER, hip IR, SL hip abd, gentle hip flex seated vs supine, STS, LAQ, luther stretch, LTR, TA activation; trial Sharri waddell hip march with TA *Fall risk, ask her to use spc if difficulty with ambulation Update POC 10/29
--- NOTE | 2023-10-07 11:38 | PT.OTN ---
Current Diagnoses Other chronic pain (10/07/23) Pain in right knee (10/07/23) Pain in left knee (10/07/23) Dorsalgia, unspecified (10/07/23) Physical Therapy Treatment Note PT-OP-A Visit Information Start: 09/29/23 09:02 Freq: Status: Active Protocol: Document 10/07/23 09:07 NM (Rec: 10/07/23 09:47 NM [id number]) Out-Patient Physical Therapy Visit Information Visit Information Visit Type Treatment Note Visit Note KX after 19th visit Visit Start Time 09:05 Visit Stop Time 09:45 Visit Number 3 Evaluation Information Evaluation Date 09/29/23 Precautions Precautions Fall risk PT-OP-B Current Condition Start: 09/29/23 09:02 Freq: Status: Active Protocol: Document 09/29/23 09:02 NM (Rec: 09/29/23 10:30 NM [id number]) Current Condition History of Current Condition Onset Date early 2021 Current Complaints BLE weakness, pain in anterolateral hips History of Current Condition Pt presents to clinic with occasional pain in her lumbar spine, along with B hip and knee pain beginning in early 2021. Pt reports that she used to be sedentary and has lost a lot of weight; however, she is just very weak and has pain with activity. She reports difficulty with ambulation, particularly due to pain in the front of her hips. 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 She developed lymphedema recently and is being treated for that as well. Overall, she reports extensive fatigue with activities, particularly when having to stand or ambulate for greater than 10 minutes; relieved with rest. She also reports knee/hip pain with stairs, particulary during descent. She reports no falls but states that she feels off balance during standing and gait. She used to use a spc for gait for the past 10-11 months, but reports that she has felt stronger in the last 2-3 weeks and hasn't needed the spc (taking the stairs 5- 6x/day at home). Previous meniscus injury to L knee; current injury to L shoulder from lifting an object last week. 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 Treatment Goals Patient/Caregiver Goals Decrease pain, get back to ballroom dancing Current Functional Impairments (Reported) Functional Limitations- ADL's Difficulty with ADLs involving fwd trunk flexion Functional Limitations- Mobility/Gait Unable to walk/stand >10 min due to B hip and knee pain, prn spc use PT-OP-C Subjective Start: 09/29/23 09:02 Freq: Status: Active Protocol: Document 10/07/23 09:07 NM (Rec: 10/07/23 09:47 NM [id number]) OP-PT Subjective Patient Comments Patient Comments Pt reports soreness after last session in her R thigh verena quad. She reports no pain in her hips or knees. She went to the chiropractor yesterday for an alignment of her hips and shoulders; she feels better and reports that he told her that if she moves more then she won't be as sore . She did not perform her HEP due to pain. PT-OP-D Balance Start: 09/29/23 09:02 Freq: Status: Active Protocol: Document 09/29/23 09:02 NM (Rec: 09/29/23 10:30 NM [id number]) OP-PT Balance Assessment Sitting Balance Static Sitting Balance Ability Normal Dynamic Sitting Balance Ability Normal Standing Balance Static Standing Balance Ability Fair Dynamic Standing Balance Ability Fair Balance Tests Romberg Romberg 10 seconds, mild trunk sway, no LOB Single Limb Standing Single Limb- Right 1 second Single Limb- Left 2 seconds Tandem Tandem Standing difficulty with getting into position; maintains <2 sec Espinal Fall Scale Copyright Permission PT-OP-E Functional Tests Start: 09/29/23 09:02 Freq: Status: Active Protocol: Document 09/29/23 09:02 NM (Rec: 09/29/23 10:30 NM [id number]) Functional Tests 30 Second Sit to Stand Test Score 10 reps Comments no pain reported but slow; no UE use Tinetti Balance and Gait Assessment Balance Score 11 Gait Score 7 Composite Score PT-OP-F Manual Assessment Start: 09/29/23 09:02 Freq: Status: Active Protocol: Document 09/29/23 09:02 NM (Rec: 09/29/23 10:30 NM [id number]) Manual Assessments Soft Tissue Assessment Soft Tissue Mobility Assessment Mild soft tissue restrictions of B lumbar paraspinals/QL, but not tender to palpation. Demos B hip flexor tightness, pain with R hip pain Joint Mobility Assessment Joint Mobility Assessment Full L hip PROM. Limited R hip PROM, demos guarding with flexion verena into IR>ER and painful. No instability of B knees noted. No clicking, popping, locking, giving out of B hips or knees. PT-OP-G Mobility & Gait Start: 09/29/23 09:02 Freq: Status: Active Protocol: Document 09/29/23 09:02 NM (Rec: 09/29/23 10:30 NM [id number]) OP Mobility Evaluation Bed Mobility Rolling Difficulty with rolling due to pain. Sits up from supine to EOB then transfers to prone OP Gait Assessment Gait Gait Assistance Required: Independent Distance (Feet) 150 Assistive Devices Assistive Device None Gait Deviations General Gait Pattern Antalgic,Flexed Trunk Factors Limiting Gait Function Factors Limiting Gait Function Decreased Activity Tolerance, Decreased Strength,Limited Range of Motion,Pain,Poor Balance Comments Gait Comments Antalgic gait pattern with fwd flexed trunk posture, mild- mod trunk sway. Lateral trunk deviation PT-OP-H Neuro Start: 09/29/23 09:02 Freq: Status: Active Protocol: Document 09/29/23 09:02 NM (Rec: 09/29/23 10:30 NM [id number]) Sensation Evaluation Gross Sensation Gross Sensation WNL Comments Summary Comments BLE intact to light touch sensation equally despite reported numbness in L 2nd and 3rd toes Deep Tendon Reflex & Clonus Assessment Deep Tendon Reflex Bilateral Patellar Deep Tendon Reflex 1+ Diminished PT-OP-J Posture/Palpation/Skin Start: 09/29/23 09:02 Freq: Status: Active Protocol: Document 09/29/23 09:02 NM (Rec: 09/29/23 10:30 NM [id number]) Posture Evaluation Position Standing Evaluation View posterior, lateral Head/C-Spine Posture Forward Head L-Spine Posture Increased Lordosis Shoulder Posture (L) Forward,(R) Forward,(L) Elevated Scapula Posture (L) Protracted,(R) Protracted Arm Posture (L) Internally Rotated,(R) Internally Rotated Pelvis Posture Anteriorly Tilted,(L) Iliac Crest Superior Weight Distribution Weight Shifted Right Knee Posture (L) Genu Varus,(R) Genu Varus Patellar Posture (L) Superior,(R) Superior Palpation Assessment Location Lumbar spine Palpation Location L4-S1, SI joints, Palpation Findings Tenderness Palpation Details Tender to palpation along spinous processes of L4-S1, L4 is most tender. B hips Palpation Location greater trochanter, gluteals Palpation Findings Soft Tissue Tightness,Spasm, Muscle Guarding,Tenderness Palpation Details Tenderness to B greater trochanters (L>R), worse with internal/external rotation. Muscle guarding and tenderness of B gluteals, L>R. PT-OP-K Range of Motion Start: 09/29/23 09:02 Freq: Status: Active Protocol: Document 09/29/23 09:02 NM (Rec: 09/29/23 10:30 NM [id number]) Lumbar Spine Range of Motion Lumbar Spine Active Percentage Testing Position Standing Flexion 80 Extension 100 Rotation Left 100 Rotation Right 100 Lateral Flexion Left 75 Lateral Flexion Right 75 Comments Minimal low back pain with trunk flexion, none with any other motions. Cued to keep knees straight during flex/ext motions Hip Goniometric Range of Motion Hip Right Flexion w/Knee Flexed 90 Internal Rotation 20 External Rotation 20 Comments Passive hip flexion 110 deg. Hip/greater trochanter pain with internal rotation Left Flexion w/Knee Flexed 115 Internal Rotation 25 External Rotation 30 Comments Passive hip flexion 110 deg. Hip/greater trochanter pain with internal rotation. Knee Goniometric Range of Motion Knee ROM Limitations Comments B knee ROM WFL PT-OP-L Special Tests Start: 09/29/23 09:02 Freq: Status: Active Protocol: Document 09/29/23 09:02 NM (Rec: 09/29/23 10:30 NM [id number]) Special Tests Lumbar Spine Special Tests Straight Leg Raise Test Results negative Comments does not reproduce local or referred pain Michael/Quadrant Test Results negative Comments does not reproduce local or referred pain Hip Special Tests Scour Test Test Results negative bilaterally Anterior Labral Test Test Results negative bilaterally FADIR Test Results positive bilaterally (L>R) Comments Reproduces pain along B greater trochanter and posterior glutes. Moderate muscle guarding verena with L. Minimal pain reported in anterior hip/groin PT-OP-M Strength Start: 09/29/23 09:02 Freq: Status: Active Protocol: Document 09/29/23 09:02 NM (Rec: 09/29/23 10:30 NM [id number]) Trunk Strength Trunk Manual Muscle Testing Testing Position supine, sitting Flexion 3+ Fair+ Extension 4 Good Rotation Left 4 Good Rotation Right 4 Good Lateral Flexion Left 4 Good Lateral Flexion Right 4 Good Comments Able to withstand minimal resisted flexion, but not painful. Attempts to compensate, poor functional core stabilization verena with rolling Hip Strength Hip Manual Muscle Testing Right Flexion (L2) 3+ Fair+ Extension (S1) 3+ Fair+ Abduction 3+ Fair+ Adduction 3+ Fair+ External Rotation 3+ Fair+ Internal Rotation 3+ Fair+ Comments Pain with resisted IR > flexion Left Flexion (L2) 4- Good- Extension (S1) 4- Good- Abduction 4- Good- Adduction 4- Good- External Rotation 4- Good- Internal Rotation 3+ Fair+ Comments Pain with resisted IR Knee Strength Knee Manual Muscle Testing Right Flexion (S2) 4 Good Extension (L3) 4 Good Left Flexion (S2) 4 Good Extension (L3) 4 Good Ankle/Foot Strength Ankle and Foot Manual Muscle Testing Right Dorsiflexion (L4) 4+ Good+ Plantarflexion (S1) 4+ Good+ Left Dorsiflexion (L4) 4+ Good+ Plantarflexion (S1) 4+ Good+ PT-OP-Q Treatments Start: 09/29/23 09:02 Freq: Status: Active Protocol: Document 10/07/23 09:07 NM (Rec: 10/07/23 09:47 NM [id number]) Therapeutic Exercises Supine Exercises bridge Supine Exercise Name heels at 90 deg knee flex with ppt Side bilateral Resistance teal lvl 2 band around thighs Reps/Minutes 2x10 with 1 hold Comments reports no pain; cued for glute squeeze with lift LTR Supine Exercise Name for lumbar spine mobility- for low back stretch Side bilateral Equipment Used cued to keep hips on table Reps/Minutes 1x10 ea side (feels looser now) Comments reports good stretch in lumbar spine, no hip pain reported november Supine Exercise Name alternating Side bilateral Equipment Used lvl 1 light blue tb Reps/Minutes 1x10 Comments reports minimal pain with hip flexion at end range but none w initial ROM Luther stretch Supine Exercise Name reports tightness in L hip flexors (both legs on table d/ t back pain) Side bilateral Equipment Used single knee to chest, opposite knee straight Reps/Minutes 2x30 Comments reports good stretch feeling, no pain; R>L tightness, min R hip pain-dec Sidelying Exercises hip abduction Sidelying Exercise Name unable to lay on L shoulder d/ t pain Sitting Exercises HSC Side bilateral Resistance lvl 2 teal tb around ankles Reps/Minutes 2x10 Comments reports good hamstring activation, not painful; cue no trunk lean november Sitting Exercise Name no hip pain today after stretching, STM Side bilateral Resistance lvl 1 light blue tb Equipment Used band around feet Reps/Minutes 2x10 Comments cued no post trunk lean; reports medium difficulty LAQ Sitting Exercise Name performed after luther stretch , quad mobilization Side bilateral Resistance lvl 2 teal around ankles Reps/Minutes 2x10 ea Comments reports medium difficulty; limited knee ext ROM R>L; cued no bwd lean Standing Exercises Side steps Standing Exercise Name for glute med activation Side bilateral Resistance [place] green tb lvl 3 Equipment Used around thighs; prn hand support at table Reps/Minutes 3x8 ft Comments cue for foot clearance, tension band sit <> stand Side bilateral Resistance chenega tb lvl 3 Equipment Used band around thighs Reps/Minutes 2x10 Comments cues for equal wb (favors RLE) , LLE placed slightly posterior for inc WB Manual Therapy Treatment Soft Tissue Mobilization L hip Body Location quad, ITB, TFL, adductors Mobilization Type Instrument Assisted,Rolling Intensity/Depth Moderate Body Position Supine Comments Less soreness L quad, ITB, adductors, TFL compared to RLE . PT using rolling pin to promote relaxation of pt's muscles and decrease soreness. Followed up with ther-ex R hip Body Location quad, ITB, TFL, adductors Mobilization Type Instrument Assisted,Rolling Intensity/Depth Moderate Body Position Supine Comments Pt with soreness in quad > TFL , ITB, adductors. PT using rolling pin to promote relaxation of pt's muscles and decrease soreness. Educated pt on foam rolling, using of rolling pin or other massage agent as modality for pain relief. Pt reports muscle relaxation and relief after STM. Followed up with ther-ex Self-Care/Home Management Treatment Education Patient Education Home Exercise Program,Joint Protection,Pain Management Other Education Educated on pain management with modalities. Discussed with pt about not concurrently doing chiropractor with PT to determine efficacy of PT. PT also educated pt on pain neuroscience, retraining muscles with exercise and soreness/soft tissue mobilization, in addition to recent change in pt's activity /lifestyle that will lead to soreness with exercise. Educated difference btwn soreness, activation, and pain . Pt verbalizes understanding. Issued HEP with november with band as pt painfree with that exercise today; instructed to perform after stretch and muscle massage PT-OP-T Assessment and Plan Start: 09/29/23 09:02 Freq: Status: Active Protocol: Document 10/07/23 09:07 NM (Rec: 10/07/23 09:47 NM [id number]) Physical Therapy Assessment Goals Seven Impairment balance Impairment Tinetti 18/28 Short Term Goal (STG) Pt will improve Tinetti score to at least 20/28 in order to demonstate decrease fall risk and improved balance STG Duration 5 weeks [employer] Goal (LTG) Pt will improve Tinetti score to at least 24/28 in order to demonstate decrease fall risk and improved balance LTG Duration 10 weeks Six Impairment balance Impairment tandem stance <2 seconds, difficulty getting into position Short Term Goal (STG) Pt will be able to position without assistance in tandem stance without LOB in order to demonstrate improved balance required for gait, recreational dancing STG Duration 5 weeks [facility] Goal (LTG) Pt will be able to stand at least 15 seconds in tandem stance without LOB in order to demonstrate improved balance required for gait LTG Duration 10 weeks Five Impairment gait Impairment Pt reports unable to ambulate more than 10 minutes before a seated rest break due to pain Short Term Goal (STG) Pt will be able to ambulate using LRAD or no AD for community distances (at least 600 ft) in order to demonstrate improved BLE strength, pain management, and activity tolerance STG Duration 5 weeks [facility] Goal (LTG) Pt will report that she can ambulate using LRAD or no AD for at least 20 minutes in order to demonstrate improved BLE strength, pain management, and activity tolerance LTG Duration 10 weeks Four Impairment strength Impairment R hip strength 3+/5 MMT Short Term Goal (STG) Pt will improve R hip global hip strength to at least 4/5 in order to demonstrate improved hip strength needed for gait, balance, and stairs STG Duration 5 weeks [facility] Goal (LTG) Pt will improve R hip global hip strength to at least 4+/5 in order to demonstrate improved hip strength needed for gait, balance, and stairs LTG Duration 10 weeks Three Impairment strength Impairment L hip strength 4-/5 except IR 3+/5 MMT Short Term Goal (STG) Pt will improve L global hip strength to at least 4/5 in order to demonstrate improved hip strength needed for gait, balance, and stairs STG Duration 5 weeks [employer] Goal (LTG) Pt will improve L global hip strength to at least 4+/5 in order to demonstrate improved hip strength needed for gait, balance, and stairs LTG Duration 10 weeks Two Impairment strength Impairment 30 second STS = 10 [employer] Goal (LTG) Pt will be able to perform at least 15 sit to stands within 30 seconds without compensation or pain in order to demonstrate improved BLE strength and tolerance for activity. LTG Duration 10 weeks One Impairment function Impairment LEFS 32/80 [employer] Goal (LTG) Pt will increase LEFS score to greater than 50/80 in order to demonstrate improved tolerance for ADLs and activity. LTG Duration 10 weeks Assessment Summary Assessment Continued with BLE strengthening target glutes, hip flexors and quads. Began session with soft tissue mobilization to address pt soreness and to promote muscle relaxation. Pt tolerates STM to quad with rolling well. Also demos improved tolerance for exercise after quad STM and luther stretch. Initiated side steps, seated march, and HSC today. Progressed band for sit to stand and LAQ. PT educated pt to expect soreness with increased activity compared to prior lifestyle habits, pain neuroscience for greater understanding of pain vs muscle activation vs soreness. Pt requires cues for controlled motions for better muscle activation, correct execution. Issued HEP with seated march with band as pt painfree with that exercise today; instructed to perform after stretch and muscle massage. Pt would benefit from skilled PT for progressive BLE and trunk strengthening in order to improve activity tolerance, decrease pain symptoms, and improve gait/ balance for lower fall risk. Physical Therapy Plan Frequency and Duration Frequency of Treatment 2x/Week Duration of treatment (weeks) 10 Plan of Care Start Date 09/29/23 Plan of Care End Date 12/08/23 Therapeutic Interventions Therapeutic Interventions Balance Training,Coordination Training,Gait Training,Home Exercise Program,Joint Mobilizations,Manual Therapy, Neuromuscular Re-education, Orthotic/Prosthetic Management ,Patient/Caregiver Education, Self-Care/Home Management, Sensory Integration,Soft Tissue Mobilization,Taping, Therapeutic Activities, Therapeutic Exercises Modalities Cold Pack/Ice Massage,Hot Packs Next Visit Focus/Plan Next Note Type Treatment Note Next Visit Plan Trial: teach rolling out of bed to R (possible log roll). Possible hip mobilizations depending on tolerance Continue BLE strengthening: luther stretch, seated vs standing hip flex, heel raises , progress STS/squat, side steps. Begin gentle balance and gait training *Fall risk, ask her to use spc if difficulty with ambulation Update POC 10/29
--- NOTE | 2023-10-12 16:18 | PT.OTN ---
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 Pt reports that she used to be sedentary and has lost a lot of weight; however, she is just very weak and has pain with activity. She reports difficulty with ambulation, particularly due to pain in the front of her hips. 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 She developed lymphedema recently and is being treated for that as well. Overall, she reports extensive fatigue with activities, particularly when having to stand or ambulate for greater than 10 minutes; relieved with rest. She also reports knee/hip pain with stairs, particulary during descent. She reports no falls but states that she feels off balance during standing and gait. She used to use a spc for gait for the past 10-11 months, but reports that she has felt stronger in the last 2-3 weeks and hasn't needed the spc (taking the stairs 5- 6x/day at home). Previous meniscus injury to L knee; current injury to L shoulder from lifting an object last week. 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 Treatment Goals Patient/Caregiver Goals Decrease pain, get back to ballroom dancing Current Functional Impairments (Reported) Functional Limitations- ADL's Difficulty with ADLs involving fwd trunk flexion Functional Limitations- Mobility/Gait Unable to walk/stand >10 min due to B hip and knee pain, prn spc use PT-OP-C Subjective Start: 09/29/23 09:02 Freq: Status: Active Protocol: Document 10/12/23 08:12 AB (Rec: 10/12/23 16:21 AB [id number]) OP-PT Subjective Patient Comments Patient Comments Patient reports she was OK post previous session. Patient reports having hip pain when she woke up which has resolved now. Patient reports difficulty ascending stairs, reports using rails. PT-OP-D Balance Start: 09/29/23 09:02 Freq: Status: Active Protocol: Document 09/29/23 09:02 NM (Rec: 09/29/23 10:30 NM [id number]) OP-PT Balance Assessment Sitting Balance Static Sitting Balance Ability Normal Dynamic Sitting Balance Ability Normal Standing Balance Static Standing Balance Ability Fair Dynamic Standing Balance Ability Fair Balance Tests Romberg Romberg 10 seconds, mild trunk sway, no LOB Single Limb Standing Single Limb- Right 1 second Single Limb- Left 2 seconds Tandem Tandem Standing difficulty with getting into position; maintains <2 sec Espinal Fall Scale Copyright Permission PT-OP-E Functional Tests Start: 09/29/23 09:02 Freq: Status: Active Protocol: Document 09/29/23 09:02 NM (Rec: 09/29/23 10:30 NM [id number]) Functional Tests 30 Second Sit to Stand Test Score 10 reps Comments no pain reported but slow; no UE use Tinetti Balance and Gait Assessment Balance Score 11 Gait Score 7 Composite Score [id number] PT-OP-F Manual Assessment Start: 09/29/23 09:02 Freq: Status: Active Protocol: Document 09/29/23 09:02 NM (Rec: 09/29/23 10:30 NM [id number]) Manual Assessments Soft Tissue Assessment Soft Tissue Mobility Assessment Mild soft tissue restrictions of B lumbar paraspinals/QL, but not tender to palpation. Demos B hip flexor tightness, pain with R hip pain Joint Mobility Assessment Joint Mobility Assessment Full L hip PROM. Limited R hip PROM, demos guarding with flexion verena into IR>ER and painful. No instability of B knees noted. No clicking, popping, locking, giving out of B hips or knees. PT-OP-G Mobility & Gait Start: 09/29/23 09:02 Freq: Status: Active Protocol: Document 09/29/23 09:02 NM (Rec: 09/29/23 10:30 NM [id number]) OP Mobility Evaluation Bed Mobility Rolling Difficulty with rolling due to pain. Sits up from supine to EOB then transfers to prone OP Gait Assessment Gait Gait Assistance Required: Independent Distance (Feet) 150 Assistive Devices Assistive Device None Gait Deviations General Gait Pattern Antalgic,Flexed Trunk Factors Limiting Gait Function Factors Limiting Gait Function Decreased Activity Tolerance, Decreased Strength,Limited Range of Motion,Pain,Poor Balance Comments Gait Comments Antalgic gait pattern with fwd flexed trunk posture, mild- mod trunk sway. Lateral trunk deviation PT-OP-H Neuro Start: 09/29/23 09:02 Freq: Status: Active Protocol: Document 09/29/23 09:02 NM (Rec: 09/29/23 10:30 NM [id number]) Sensation Evaluation Gross Sensation Gross Sensation WNL Comments Summary Comments BLE intact to light touch sensation equally despite reported numbness in L 2nd and 3rd toes Deep Tendon Reflex & Clonus Assessment Deep Tendon Reflex Bilateral Patellar Deep Tendon Reflex 1+ Diminished PT-OP-J Posture/Palpation/Skin Start: 09/29/23 09:02 Freq: Status: Active Protocol: Document 09/29/23 09:02 NM (Rec: 09/29/23 10:30 NM [id number]) Posture Evaluation Position Standing Evaluation View posterior, lateral Head/C-Spine Posture Forward Head L-Spine Posture Increased Lordosis Shoulder Posture (L) Forward,(R) Forward,(L) Elevated Scapula Posture (L) Protracted,(R) Protracted Arm Posture (L) Internally Rotated,(R) Internally Rotated Pelvis Posture Anteriorly Tilted,(L) Iliac Crest Superior Weight Distribution Weight Shifted Right Knee Posture (L) Genu Varus,(R) Genu Varus Patellar Posture (L) Superior,(R) Superior Palpation Assessment Location Lumbar spine Palpation Location L4-S1, SI joints, Palpation Findings Tenderness Palpation Details Tender to palpation along spinous processes of L4-S1, L4 is most tender. B hips Palpation Location greater trochanter, gluteals Palpation Findings Soft Tissue Tightness,Spasm, Muscle Guarding,Tenderness Palpation Details Tenderness to B greater trochanters (L>R), worse with internal/external rotation. Muscle guarding and tenderness of B gluteals, L>R. PT-OP-K Range of Motion Start: 09/29/23 09:02 Freq: Status: Active Protocol: Document 09/29/23 09:02 NM (Rec: 09/29/23 10:30 NM [id number]) Lumbar Spine Range of Motion Lumbar Spine Active Percentage Testing Position Standing Flexion 80 Extension 100 Rotation Left 100 Rotation Right 100 Lateral Flexion Left 75 Lateral Flexion Right 75 Comments Minimal low back pain with trunk flexion, none with any other motions. Cued to keep knees straight during flex/ext motions Hip Goniometric Range of Motion Hip Right Flexion w/Knee Flexed 90 Internal Rotation 20 External Rotation 20 Comments Passive hip flexion 110 deg. Hip/greater trochanter pain with internal rotation Left Flexion w/Knee Flexed 115 Internal Rotation 25 External Rotation 30 Comments Passive hip flexion 110 deg. Hip/greater trochanter pain with internal rotation. Knee Goniometric Range of Motion Knee ROM Limitations Comments B knee ROM WFL PT-OP-L Special Tests Start: 09/29/23 09:02 Freq: Status: Active Protocol: Document 09/29/23 09:02 NM (Rec: 09/29/23 10:30 NM [id number]) Special Tests Lumbar Spine Special Tests Straight Leg Raise Test Results negative Comments does not reproduce local or referred pain Michael/Quadrant Test Results negative Comments does not reproduce local or referred pain Hip Special Tests Scour Test Test Results negative bilaterally Anterior Labral Test Test Results negative bilaterally FADIR Test Results positive bilaterally (L>R) Comments Reproduces pain along B greater trochanter and posterior glutes. Moderate muscle guarding verena with L. Minimal pain reported in anterior hip/groin PT-OP-M Strength Start: 09/29/23 09:02 Freq: Status: Active Protocol: Document 09/29/23 09:02 NM (Rec: 09/29/23 10:30 NM [id number]) Trunk Strength Trunk Manual Muscle Testing Testing Position supine, sitting Flexion 3+ Fair+ Extension 4 Good Rotation Left 4 Good Rotation Right 4 Good Lateral Flexion Left 4 Good Lateral Flexion Right 4 Good Comments Able to withstand minimal resisted flexion, but not painful. Attempts to compensate, poor functional core stabilization verena with rolling Hip Strength Hip Manual Muscle Testing Right Flexion (L2) 3+ Fair+ Extension (S1) 3+ Fair+ Abduction 3+ Fair+ Adduction 3+ Fair+ External Rotation 3+ Fair+ Internal Rotation 3+ Fair+ Comments Pain with resisted IR > flexion Left Flexion (L2) 4- Good- Extension (S1) 4- Good- Abduction 4- Good- Adduction 4- Good- External Rotation 4- Good- Internal Rotation 3+ Fair+ Comments Pain with resisted IR Knee Strength Knee Manual Muscle Testing Right Flexion (S2) 4 Good Extension (L3) 4 Good Left Flexion (S2) 4 Good Extension (L3) 4 Good Ankle/Foot Strength Ankle and Foot Manual Muscle Testing Right Dorsiflexion (L4) 4+ Good+ Plantarflexion (S1) 4+ Good+ Left Dorsiflexion (L4) 4+ Good+ Plantarflexion (S1) 4+ Good+ PT-OP-Q Treatments Start: 09/29/23 09:02 Freq: Status: Active Protocol: Document 10/12/23 08:12 AB (Rec: 10/12/23 16:21 AB [id number]) Therapeutic Exercises Supine Exercises SLR Supine Exercise Name SLR Side bilateral Reps/Minutes X3 right X 1 left Comments intermittently to test for pain knee to chest stretch Supine Exercise Name knee to chest Side bilateral Reps/Minutes 2 Comments towel roll at groin right LE Sitting Exercises hip abduction Sitting Exercise Name seated hip abduction with band Side bilateral Resistance light blue band Reps/Minutes 2X10 Comments verbal cues to perform slowly Therapeutic Activity Therapeutic Activity sit to stand Name sit to stand varying seat heights Reps/Minutes X 5 X 5 Comments X5 with light blue band above knees, X 5 X3with band and 3 lb weight, X 5 with no band or weight supine to sit Name from left and right side Reps/Minutes X2 each direction Comments Verbal cues for transition to sidelying from supinethen VC for timing for sidelying to sit Manual Therapy Treatment Soft Tissue Mobilization L hip Body Location Gluteal piriformis area Mobilization Type Rolling Intensity/Depth Moderate Body Position Sidelying Comments monitored for pain, performed pre stretch into hip IR R hip Body Location gluteal piriformis area Mobilization Type Rolling Intensity/Depth Moderate Body Position Sidelying Comments monitored for pain Joint Mobilizations LAD Joint right hip long axis distraction Grade IV Body Position Hooklying Reps/Duration 2 min Comments monitored for pain right hip joint mobilizations Joint right hip Direction AP grade IV lat grade II Body Position Hooklying Reps/Duration X5 X 4 Comments Monitored for pain Manual Techniques PROM hip IR Type PROM hip IR Body Location left and right hip Body Position Sitting Reps/Duration 2 one minute Comments contract relax Neuro Re-Education Treatment Other Activities glute med activation Details seated with band Reps/Duration 1 one minute Comments Verbal and visual cues. Patient ed rationale of one minute hold for activation PT-OP-T Assessment and Plan Start: 09/29/23 09:02 Freq: Status: Active Protocol: Document 10/12/23 08:12 AB (Rec: 10/12/23 16:21 AB [id number]) Physical Therapy Assessment Goals Seven Impairment balance Impairment Tinetti 18/28 Short Term Goal (STG) Pt will improve Tinetti score to at least 20/28 in order to demonstate decrease fall risk and improved balance STG Duration 5 weeks Wrapper Layer And Examiner Soft Work Goal (LTG) Pt will improve Tinetti score to at least 24/28 in order to demonstate decrease fall risk and improved balance LTG Duration 10 weeks Six Impairment balance Impairment tandem stance <2 seconds, difficulty getting into position Short Term Goal (STG) Pt will be able to position without assistance in tandem stance without LOB in order to demonstrate improved balance required for gait, recreational dancing STG Duration 5 weeks Wrapper Layer And Examiner Soft Work Goal (LTG) Pt will be able to stand at least 15 seconds in tandem stance without LOB in order to demonstrate improved balance required for gait LTG Duration 10 weeks Five Impairment gait Impairment Pt reports unable to ambulate more than 10 minutes before a seated rest break due to pain Short Term Goal (STG) Pt will be able to ambulate using LRAD or no AD for community distances (at least 600 ft) in order to demonstrate improved BLE strength, pain management, and activity tolerance STG Duration 5 weeks Wrapper Layer And Examiner Soft Work Goal (LTG) Pt will report that she can ambulate using LRAD or no AD for at least 20 minutes in order to demonstrate improved BLE strength, pain management, and activity tolerance LTG Duration 10 weeks Four Impairment strength Impairment R hip strength 3+/5 MMT Short Term Goal (STG) Pt will improve R hip global hip strength to at least 4/5 in order to demonstrate improved hip strength needed for gait, balance, and stairs STG Duration 5 weeks Group Home Goal (LTG) Pt will improve R hip global hip strength to at least 4+/5 in order to demonstrate improved hip strength needed for gait, balance, and stairs LTG Duration 10 weeks Three Impairment strength Impairment L hip strength 4-/5 except IR 3+/5 MMT Short Term Goal (STG) Pt will improve L global hip strength to at least 4/5 in order to demonstrate improved hip strength needed for gait, balance, and stairs STG Duration 5 weeks Wrapper Layer And Examiner Soft Work Goal (LTG) Pt will improve L global hip strength to at least 4+/5 in order to demonstrate improved hip strength needed for gait, balance, and stairs LTG Duration 10 weeks Two Impairment strength Impairment 30 second STS = 10 Wrapper Layer And Examiner Soft Work Goal (LTG) Pt will be able to perform at least 15 sit to stands within 30 seconds without compensation or pain in order to demonstrate improved BLE strength and tolerance for activity. LTG Duration 10 weeks One Impairment function Impairment LEFS 32/80 Wrapper Layer And Examiner Soft Work Goal (LTG) Pt will increase LEFS score to greater than 50/80 in order to demonstrate improved tolerance for ADLs and activity. LTG Duration 10 weeks Assessment Summary Assessment Bambi into session unable to perform a full SLR right LE, reports groin pain on attempt, post manual therapy, able to perform a SLR and reports having no groin pain. Patient reports difficulty with stairs persist and would benefit from progression of strengthening for progression of functional mobility. Physical Therapy Plan Frequency and Duration Frequency of Treatment 2x/Week Duration of treatment (weeks) 10 Plan of Care Start Date 09/29/23 Plan of Care End Date 12/08/23 Next Visit Focus/Plan Next Note Type Treatment Note Next Visit Plan Trial: teach rolling out of bed to R (possible log roll). Possible hip mobilizations depending on tolerance Continue BLE strengthening: gonzalez stretch, seated vs standing hip flex, heel raises , progress STS with band from lower seat height, side steps. Begin gentle balance and gait training *Fall risk, ask her to use spc if difficulty with ambulation Update POC 10/29
--- NOTE | 2023-10-12 16:26 | PT.OTN ---
Current Diagnoses Other chronic pain (10/12/23) Pain in right knee (10/12/23) Pain in left knee (10/12/23) Dorsalgia, unspecified (10/12/23) Physical Therapy Treatment Note PT-OP-A Visit Information Start: 09/29/23 09:02 Freq: Status: Active Protocol: Document 10/12/23 08:12 AB (Rec: 10/12/23 16:21 AB [id number]) Out-Patient Physical Therapy Visit Information Visit Information Visit Type Treatment Note Visit Note KX after th visit Access code [email or web address] [facility] Visit Start Time 14:29 Visit Stop Time 15:15 Visit Number 4 Number of EAR NOSE THROAT PHYSICIAN Visits 1 Precautions Precautions Fall risk PT-OP-B Current Condition Start: 09/29/23 09:02 Freq: Status: Active Protocol: Document 09/29/23 09:02 NM (Rec: 09/29/23 10:30 NM [id number]) Current Condition History of Current Condition Onset Date early 2021 Current Complaints BLE weakness, pain in anterolateral hips History of Current Condition Pt presents to clinic with occasional pain in her lumbar spine, along with B hip and knee pain beginning in early 2021. Pt reports that she used to be sedentary and has lost a lot of weight; however, she is just very weak and has pain with activity. She reports difficulty with ambulation, particularly due to pain in the front of her hips. 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 She developed lymphedema recently and is being treated for that as well. Overall, she reports extensive fatigue with activities, particularly when having to stand or ambulate for greater than 10 minutes; relieved with rest. She also reports knee/hip pain with stairs, particulary during descent. She reports no falls but states that she feels off balance during standing and gait. She used to use a spc for gait for the past 10-11 months, but reports that she has felt stronger in the last 2-3 weeks and hasn't needed the spc (taking the stairs 5- 6x/day at home). Previous meniscus injury to L knee; current injury to L shoulder from lifting an object last week. 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 Treatment Goals Patient/Caregiver Goals Decrease pain, get back to ballroom dancing Current Functional Impairments (Reported) Functional Limitations- ADL's Difficulty with ADLs involving fwd trunk flexion Functional Limitations- Mobility/Gait Unable to walk/stand >10 min due to B hip and knee pain, prn spc use PT-OP-C Subjective Start: 09/29/23 09:02 Freq: Status: Active Protocol: Document 10/12/23 08:12 AB (Rec: 10/12/23 16:21 AB [id number]) OP-PT Subjective Patient Comments Patient Comments Patient reports she was OK post previous session. Patient reports having hip pain when she woke up which has resolved now. Patient reports difficulty ascending stairs, reports using rails. PT-OP-D Balance Start: 09/29/23 09:02 Freq: Status: Active Protocol: Document 09/29/23 09:02 NM (Rec: 09/29/23 10:30 NM [id number]) OP-PT Balance Assessment Sitting Balance Static Sitting Balance Ability Normal Dynamic Sitting Balance Ability Normal Standing Balance Static Standing Balance Ability Fair Dynamic Standing Balance Ability Fair Balance Tests Romberg Romberg 10 seconds, mild trunk sway, no LOB Single Limb Standing Single Limb- Right 1 second Single Limb- Left 2 seconds Tandem Tandem Standing difficulty with getting into position; maintains <2 sec Espinal Fall Scale Copyright Permission PT-OP-E Functional Tests Start: 09/29/23 09:02 Freq: Status: Active Protocol: Document 09/29/23 09:02 NM (Rec: 09/29/23 10:30 NM [id number]) Functional Tests 30 Second Sit to Stand Test Score 10 reps Comments no pain reported but slow; no UE use Tinetti Balance and Gait Assessment Balance Score 11 Gait Score 7 Composite Score [id number] PT-OP-F Manual Assessment Start: 09/29/23 09:02 Freq: Status: Active Protocol: Document 09/29/23 09:02 NM (Rec: 09/29/23 10:30 NM [id number]) Manual Assessments Soft Tissue Assessment Soft Tissue Mobility Assessment Mild soft tissue restrictions of B lumbar paraspinals/QL, but not tender to palpation. Demos B hip flexor tightness, pain with R hip pain Joint Mobility Assessment Joint Mobility Assessment Full L hip PROM. Limited R hip PROM, demos guarding with flexion verena into IR>ER and painful. No instability of B knees noted. No clicking, popping, locking, giving out of B hips or knees. PT-OP-G Mobility & Gait Start: 09/29/23 09:02 Freq: Status: Active Protocol: Document 09/29/23 09:02 NM (Rec: 09/29/23 10:30 NM [id number]) OP Mobility Evaluation Bed Mobility Rolling Difficulty with rolling due to pain. Sits up from supine to EOB then transfers to prone OP Gait Assessment Gait Gait Assistance Required: Independent Distance (Feet) 150 Assistive Devices Assistive Device None Gait Deviations General Gait Pattern Antalgic,Flexed Trunk Factors Limiting Gait Function Factors Limiting Gait Function Decreased Activity Tolerance, Decreased Strength,Limited Range of Motion,Pain,Poor Balance Comments Gait Comments Antalgic gait pattern with fwd flexed trunk posture, mild- mod trunk sway. Lateral trunk deviation PT-OP-H Neuro Start: 09/29/23 09:02 Freq: Status: Active Protocol: Document 09/29/23 09:02 NM (Rec: 09/29/23 10:30 NM [id number]) Sensation Evaluation Gross Sensation Gross Sensation WNL Comments Summary Comments BLE intact to light touch sensation equally despite reported numbness in L 2nd and 3rd toes Deep Tendon Reflex & Clonus Assessment Deep Tendon Reflex Bilateral Patellar Deep Tendon Reflex 1+ Diminished PT-OP-J Posture/Palpation/Skin Start: 09/29/23 09:02 Freq: Status: Active Protocol: Document 09/29/23 09:02 NM (Rec: 09/29/23 10:30 NM [id number]) Posture Evaluation Position Standing Evaluation View posterior, lateral Head/C-Spine Posture Forward Head L-Spine Posture Increased Lordosis Shoulder Posture (L) Forward,(R) Forward,(L) Elevated Scapula Posture (L) Protracted,(R) Protracted Arm Posture (L) Internally Rotated,(R) Internally Rotated Pelvis Posture Anteriorly Tilted,(L) Iliac Crest Superior Weight Distribution Weight Shifted Right Knee Posture (L) Genu Varus,(R) Genu Varus Patellar Posture (L) Superior,(R) Superior Palpation Assessment Location Lumbar spine Palpation Location L4-S1, SI joints, Palpation Findings Tenderness Palpation Details Tender to palpation along spinous processes of L4-S1, L4 is most tender. B hips Palpation Location greater trochanter, gluteals Palpation Findings Soft Tissue Tightness,Spasm, Muscle Guarding,Tenderness Palpation Details Tenderness to B greater trochanters (L>R), worse with internal/external rotation. Muscle guarding and tenderness of B gluteals, L>R. PT-OP-K Range of Motion Start: 09/29/23 09:02 Freq: Status: Active Protocol: Document 09/29/23 09:02 NM (Rec: 09/29/23 10:30 NM [id number]) Lumbar Spine Range of Motion Lumbar Spine Active Percentage Testing Position Standing Flexion 80 Extension 100 Rotation Left 100 Rotation Right 100 Lateral Flexion Left 75 Lateral Flexion Right 75 Comments Minimal low back pain with trunk flexion, none with any other motions. Cued to keep knees straight during flex/ext motions Hip Goniometric Range of Motion Hip Right Flexion w/Knee Flexed 90 Internal Rotation 20 External Rotation 20 Comments Passive hip flexion 110 deg. Hip/greater trochanter pain with internal rotation Left Flexion w/Knee Flexed 115 Internal Rotation 25 External Rotation 30 Comments Passive hip flexion 110 deg. Hip/greater trochanter pain with internal rotation. Knee Goniometric Range of Motion Knee ROM Limitations Comments B knee ROM WFL PT-OP-L Special Tests Start: 09/29/23 09:02 Freq: Status: Active Protocol: Document 09/29/23 09:02 NM (Rec: 09/29/23 10:30 NM [id number]) Special Tests Lumbar Spine Special Tests Straight Leg Raise Test Results negative Comments does not reproduce local or referred pain Michael/Quadrant Test Results negative Comments does not reproduce local or referred pain Hip Special Tests Scour Test Test Results negative bilaterally Anterior Labral Test Test Results negative bilaterally FADIR Test Results positive bilaterally (L>R) Comments Reproduces pain along B greater trochanter and posterior glutes. Moderate muscle guarding verena with L. Minimal pain reported in anterior hip/groin PT-OP-M Strength Start: 09/29/23 09:02 Freq: Status: Active Protocol: Document 09/29/23 09:02 NM (Rec: 09/29/23 10:30 NM [id number]) Trunk Strength Trunk Manual Muscle Testing Testing Position supine, sitting Flexion 3+ Fair+ Extension 4 Good Rotation Left 4 Good Rotation Right 4 Good Lateral Flexion Left 4 Good Lateral Flexion Right 4 Good Comments Able to withstand minimal resisted flexion, but not painful. Attempts to compensate, poor functional core stabilization verena with rolling Hip Strength Hip Manual Muscle Testing Right Flexion (L2) 3+ Fair+ Extension (S1) 3+ Fair+ Abduction 3+ Fair+ Adduction 3+ Fair+ External Rotation 3+ Fair+ Internal Rotation 3+ Fair+ Comments Pain with resisted IR > flexion Left Flexion (L2) 4- Good- Extension (S1) 4- Good- Abduction 4- Good- Adduction 4- Good- External Rotation 4- Good- Internal Rotation 3+ Fair+ Comments Pain with resisted IR Knee Strength Knee Manual Muscle Testing Right Flexion (S2) 4 Good Extension (L3) 4 Good Left Flexion (S2) 4 Good Extension (L3) 4 Good Ankle/Foot Strength Ankle and Foot Manual Muscle Testing Right Dorsiflexion (L4) 4+ Good+ Plantarflexion (S1) 4+ Good+ Left Dorsiflexion (L4) 4+ Good+ Plantarflexion (S1) 4+ Good+ PT-OP-Q Treatments Start: 09/29/23 09:02 Freq: Status: Active Protocol: Document 10/12/23 16:25 AB (Rec: 10/12/23 16:26 AB [id number]) Therapeutic Exercises Sitting Exercises hip abduction Sitting Exercise Name seated hip abduction with band Side bilateral Resistance light blue band Reps/Minutes 2X10 Comments verbal cues to perform slowly PT-OP-T Assessment and Plan Start: 09/29/23 09:02 Freq: Status: Active Protocol: Document 10/12/23 08:12 AB (Rec: 10/12/23 16:21 AB [id number]) Physical Therapy Assessment Goals Seven Impairment balance Impairment Tinetti 18/28 Short Term Goal (STG) Pt will improve Tinetti score to at least 20/28 in order to demonstate decrease fall risk and improved balance STG Duration 5 weeks Mcc Goal (LTG) Pt will improve Tinetti score to at least 24/28 in order to demonstate decrease fall risk and improved balance LTG Duration 10 weeks Six Impairment balance Impairment tandem stance <2 seconds, difficulty getting into position Short Term Goal (STG) Pt will be able to position without assistance in tandem stance without LOB in order to demonstrate improved balance required for gait, recreational dancing STG Duration 5 weeks Mcc Goal (LTG) Pt will be able to stand at least 15 seconds in tandem stance without LOB in order to demonstrate improved balance required for gait LTG Duration 10 weeks Five Impairment gait Impairment Pt reports unable to ambulate more than 10 minutes before a seated rest break due to pain Short Term Goal (STG) Pt will be able to ambulate using LRAD or no AD for community distances (at least 600 ft) in order to demonstrate improved BLE strength, pain management, and activity tolerance STG Duration 5 weeks Mcc Goal (LTG) Pt will report that she can ambulate using LRAD or no AD for at least 20 minutes in order to demonstrate improved BLE strength, pain management, and activity tolerance LTG Duration 10 weeks Four Impairment strength Impairment R hip strength 3+/5 MMT Short Term Goal (STG) Pt will improve R hip global hip strength to at least 4/5 in order to demonstrate improved hip strength needed for gait, balance, and stairs STG Duration 5 weeks Mcc Goal (LTG) Pt will improve R hip global hip strength to at least 4+/5 in order to demonstrate improved hip strength needed for gait, balance, and stairs LTG Duration 10 weeks Three Impairment strength Impairment L hip strength 4-/5 except IR 3+/5 MMT Short Term Goal (STG) Pt will improve L global hip strength to at least 4/5 in order to demonstrate improved hip strength needed for gait, balance, and stairs STG Duration 5 weeks Mcc Goal (LTG) Pt will improve L global hip strength to at least 4+/5 in order to demonstrate improved hip strength needed for gait, balance, and stairs LTG Duration 10 weeks Two Impairment strength Impairment 30 second STS = 10 Mcc Goal (LTG) Pt will be able to perform at least 15 sit to stands within 30 seconds without compensation or pain in order to demonstrate improved BLE strength and tolerance for activity. LTG Duration 10 weeks One Impairment function Impairment LEFS 32/80 Retail Assistant Goal (LTG) Pt will increase LEFS score to greater than 50/80 in order to demonstrate improved tolerance for ADLs and activity. LTG Duration 10 weeks Assessment Summary Assessment Bambi into session unable to perform a full SLR right LE, reports groin pain on attempt, post manual therapy, able to perform a SLR and reports having no groin pain. Patient reports difficulty with stairs persist and would benefit from progression of strengthening for progression of functional mobility. Physical Therapy Plan Frequency and Duration Frequency of Treatment 2x/Week Duration of treatment (weeks) 10 Plan of Care Start Date 09/29/23 Plan of Care End Date 12/08/23 Next Visit Focus/Plan Next Note Type Treatment Note Next Visit Plan Trial: teach rolling out of bed to R (possible log roll). Possible hip mobilizations depending on tolerance Continue BLE strengthening: gonzalez stretch, seated vs standing hip flex, heel raises , progress STS with band from lower seat height, side steps. Begin gentle balance and gait training *Fall risk, ask her to use spc if difficulty with ambulation Update POC 10/29
--- NOTE | 2023-10-12 16:26 | PT.OTN ---
Current Diagnoses Other chronic pain (10/12/23) Pain in right knee (10/12/23) Pain in left knee (10/12/23) Dorsalgia, unspecified (10/12/23) Physical Therapy Treatment Note PT-OP-A Visit Information Start: 09/29/23 09:02 Freq: Status: Active Protocol: Document 10/12/23 08:12 AB (Rec: 10/12/23 16:21 AB [id number]) Out-Patient Physical Therapy Visit Information Visit Information Visit Type Treatment Note Visit Note KX after th visit Access code [email or web address] [facility] Visit Start Time 14:29 Visit Stop Time 15:15 Visit Number 4 Number of BUSINESS REPORTER Visits 1 Precautions Precautions Fall risk PT-OP-B Current Condition Start: 09/29/23 09:02 Freq: Status: Active Protocol: Document 09/29/23 09:02 NM (Rec: 09/29/23 10:30 NM [id number]) Current Condition History of Current Condition Onset Date early 2021 Current Complaints BLE weakness, pain in anterolateral hips History of Current Condition Pt presents to clinic with occasional pain in her lumbar spine, along with B hip and knee pain beginning in early 2021. Pt reports that she used to be sedentary and has lost a lot of weight; however, she is just very weak and has pain with activity. She reports difficulty with ambulation, particularly due to pain in the front of her hips. 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 She developed lymphedema recently and is being treated for that as well. Overall, she reports extensive fatigue with activities, particularly when having to stand or ambulate for greater than 10 minutes; relieved with rest. She also reports knee/hip pain with stairs, particulary during descent. She reports no falls but states that she feels off balance during standing and gait. She used to use a spc for gait for the past 10-11 months, but reports that she has felt stronger in the last 2-3 weeks and hasn't needed the spc (taking the stairs 5- 6x/day at home). Previous meniscus injury to L knee; current injury to L shoulder from lifting an object last week. 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 Treatment Goals Patient/Caregiver Goals Decrease pain, get back to ballroom dancing Current Functional Impairments (Reported) Functional Limitations- ADL's Difficulty with ADLs involving fwd trunk flexion Functional Limitations- Mobility/Gait Unable to walk/stand >10 min due to B hip and knee pain, prn spc use PT-OP-C Subjective Start: 09/29/23 09:02 Freq: Status: Active Protocol: Document 10/12/23 08:12 AB (Rec: 10/12/23 16:21 AB [id number]) OP-PT Subjective Patient Comments Patient Comments Patient reports she was OK post previous session. Patient reports having hip pain when she woke up which has resolved now. Patient reports difficulty ascending stairs, reports using rails. PT-OP-D Balance Start: 09/29/23 09:02 Freq: Status: Active Protocol: Document 09/29/23 09:02 NM (Rec: 09/29/23 10:30 NM [id number]) OP-PT Balance Assessment Sitting Balance Static Sitting Balance Ability Normal Dynamic Sitting Balance Ability Normal Standing Balance Static Standing Balance Ability Fair Dynamic Standing Balance Ability Fair Balance Tests Romberg Romberg 10 seconds, mild trunk sway, no LOB Single Limb Standing Single Limb- Right 1 second Single Limb- Left 2 seconds Tandem Tandem Standing difficulty with getting into position; maintains <2 sec Espinal Fall Scale Copyright Permission PT-OP-E Functional Tests Start: 09/29/23 09:02 Freq: Status: Active Protocol: Document 09/29/23 09:02 NM (Rec: 09/29/23 10:30 NM [id number]) Functional Tests 30 Second Sit to Stand Test Score 10 reps Comments no pain reported but slow; no UE use Tinetti Balance and Gait Assessment Balance Score 11 Gait Score 7 Composite Score 1828 PT-OP-F Manual Assessment Start: 09/29/23 09:02 Freq: Status: Active Protocol: Document 09/29/23 09:02 NM (Rec: 09/29/23 10:30 NM [id number]) Manual Assessments Soft Tissue Assessment Soft Tissue Mobility Assessment Mild soft tissue restrictions of B lumbar paraspinals/QL, but not tender to palpation. Demos B hip flexor tightness, pain with R hip pain Joint Mobility Assessment Joint Mobility Assessment Full L hip PROM. Limited R hip PROM, demos guarding with flexion vernea into IR>ER and painful. No instability of B knees noted. No clicking, popping, locking, giving out of B hips or knees. PT-OP-G Mobility & Gait Start: 09/29/23 09:02 Freq: Status: Active Protocol: Document 09/29/23 09:02 NM (Rec: 09/29/23 10:30 NM [id number]) OP Mobility Evaluation Bed Mobility Rolling Difficulty with rolling due to pain. Sits up from supine to EOB then transfers to prone OP Gait Assessment Gait Gait Assistance Required: Independent Distance (Feet) 150 Assistive Devices Assistive Device None Gait Deviations General Gait Pattern Antalgic,Flexed Trunk Factors Limiting Gait Function Factors Limiting Gait Function Decreased Activity Tolerance, Decreased Strength,Limited Range of Motion,Pain,Poor Balance Comments Gait Comments Antalgic gait pattern with fwd flexed trunk posture, mild- mod trunk sway. Lateral trunk deviation PT-OP-H Neuro Start: 09/29/23 09:02 Freq: Status: Active Protocol: Document 09/29/23 09:02 NM (Rec: 09/29/23 10:30 NM [id number]) Sensation Evaluation Gross Sensation Gross Sensation WNL Comments Summary Comments BLE intact to light touch sensation equally despite reported numbness in L 2nd and 3rd toes Deep Tendon Reflex & Clonus Assessment Deep Tendon Reflex Bilateral Patellar Deep Tendon Reflex 1+ Diminished PT-OP-J Posture/Palpation/Skin Start: 09/29/23 09:02 Freq: Status: Active Protocol: Document 09/29/23 09:02 NM (Rec: 09/29/23 10:30 NM [id number]) Posture Evaluation Position Standing Evaluation View posterior, lateral Head/C-Spine Posture Forward Head L-Spine Posture Increased Lordosis Shoulder Posture (L) Forward,(R) Forward,(L) Elevated Scapula Posture (L) Protracted,(R) Protracted Arm Posture (L) Internally Rotated,(R) Internally Rotated Pelvis Posture Anteriorly Tilted,(L) Iliac Crest Superior Weight Distribution Weight Shifted Right Knee Posture (L) Genu Varus,(R) Genu Varus Patellar Posture (L) Superior,(R) Superior Palpation Assessment Location Lumbar spine Palpation Location L4-S1, SI joints, Palpation Findings Tenderness Palpation Details Tender to palpation along spinous processes of L4-S1, L4 is most tender. B hips Palpation Location greater trochanter, gluteals Palpation Findings Soft Tissue Tightness,Spasm, Muscle Guarding,Tenderness Palpation Details Tenderness to B greater trochanters (L>R), worse with internal/external rotation. Muscle guarding and tenderness of B gluteals, L>R. PT-OP-K Range of Motion Start: 09/29/23 09:02 Freq: Status: Active Protocol: Document 09/29/23 09:02 NM (Rec: 09/29/23 10:30 NM [id number]) Lumbar Spine Range of Motion Lumbar Spine Active Percentage Testing Position Standing Flexion 80 Extension 100 Rotation Left 100 Rotation Right 100 Lateral Flexion Left 75 Lateral Flexion Right 75 Comments Minimal low back pain with trunk flexion, none with any other motions. Cued to keep knees straight during flex/ext motions Hip Goniometric Range of Motion Hip Right Flexion w/Knee Flexed 90 Internal Rotation 20 External Rotation 20 Comments Passive hip flexion 110 deg. Hip/greater trochanter pain with internal rotation Left Flexion w/Knee Flexed 115 Internal Rotation 25 External Rotation 30 Comments Passive hip flexion 110 deg. Hip/greater trochanter pain with internal rotation. Knee Goniometric Range of Motion Knee ROM Limitations Comments B knee ROM WFL PT-OP-L Special Tests Start: 09/29/23 09:02 Freq: Status: Active Protocol: Document 09/29/23 09:02 NM (Rec: 09/29/23 10:30 NM [id number]) Special Tests Lumbar Spine Special Tests Straight Leg Raise Test Results negative Comments does not reproduce local or referred pain Michael/Quadrant Test Results negative Comments does not reproduce local or referred pain Hip Special Tests Scour Test Test Results negative bilaterally Anterior Labral Test Test Results negative bilaterally FADIR Test Results positive bilaterally (L>R) Comments Reproduces pain along B greater trochanter and posterior glutes. Moderate muscle guarding verena with L. Minimal pain reported in anterior hip/groin PT-OP-M Strength Start: 09/29/23 09:02 Freq: Status: Active Protocol: Document 09/29/23 09:02 NM (Rec: 09/29/23 10:30 NM [id number]) Trunk Strength Trunk Manual Muscle Testing Testing Position supine, sitting Flexion 3+ Fair+ Extension 4 Good Rotation Left 4 Good Rotation Right 4 Good Lateral Flexion Left 4 Good Lateral Flexion Right 4 Good Comments Able to withstand minimal resisted flexion, but not painful. Attempts to compensate, poor functional core stabilization verena with rolling Hip Strength Hip Manual Muscle Testing Right Flexion (L2) 3+ Fair+ Extension (S1) 3+ Fair+ Abduction 3+ Fair+ Adduction 3+ Fair+ External Rotation 3+ Fair+ Internal Rotation 3+ Fair+ Comments Pain with resisted IR > flexion Left Flexion (L2) 4- Good- Extension (S1) 4- Good- Abduction 4- Good- Adduction 4- Good- External Rotation 4- Good- Internal Rotation 3+ Fair+ Comments Pain with resisted IR Knee Strength Knee Manual Muscle Testing Right Flexion (S2) 4 Good Extension (L3) 4 Good Left Flexion (S2) 4 Good Extension (L3) 4 Good Ankle/Foot Strength Ankle and Foot Manual Muscle Testing Right Dorsiflexion (L4) 4+ Good+ Plantarflexion (S1) 4+ Good+ Left Dorsiflexion (L4) 4+ Good+ Plantarflexion (S1) 4+ Good+ PT-OP-Q Treatments Start: 09/29/23 09:02 Freq: Status: Active Protocol: Document 10/12/23 16:25 AB (Rec: 10/12/23 16:26 AB [id number]) Therapeutic Exercises Sitting Exercises hip abduction Sitting Exercise Name seated hip abduction with band Side bilateral Resistance light blue band Reps/Minutes 2X10 Comments verbal cues to perform slowly PT-OP-T Assessment and Plan Start: 09/29/23 09:02 Freq: Status: Active Protocol: Document 10/12/23 08:12 AB (Rec: 10/12/23 16:21 AB [id number]) Physical Therapy Assessment Goals Seven Impairment balance Impairment Tinetti 18/28 Short Term Goal (STG) Pt will improve Tinetti score to at least 20/28 in order to demonstate decrease fall risk and improved balance STG Duration 5 weeks Assisted Goal (LTG) Pt will improve Tinetti score to at least 24/28 in order to demonstate decrease fall risk and improved balance LTG Duration 10 weeks Six Impairment balance Impairment tandem stance <2 seconds, difficulty getting into position Short Term Goal (STG) Pt will be able to position without assistance in tandem stance without LOB in order to demonstrate improved balance required for gait, recreational dancing STG Duration 5 weeks Assisted Goal (LTG) Pt will be able to stand at least 15 seconds in tandem stance without LOB in order to demonstrate improved balance required for gait LTG Duration 10 weeks Five Impairment gait Impairment Pt reports unable to ambulate more than 10 minutes before a seated rest break due to pain Short Term Goal (STG) Pt will be able to ambulate using LRAD or no AD for community distances (at least 600 ft) in order to demonstrate improved BLE strength, pain management, and activity tolerance STG Duration 5 weeks Assisted Goal (LTG) Pt will report that she can ambulate using LRAD or no AD for at least 20 minutes in order to demonstrate improved BLE strength, pain management, and activity tolerance LTG Duration 10 weeks Four Impairment strength Impairment R hip strength 3+/5 MMT Short Term Goal (STG) Pt will improve R hip global hip strength to at least 4/5 in order to demonstrate improved hip strength needed for gait, balance, and stairs STG Duration 5 weeks Assisted Goal (LTG) Pt will improve R hip global hip strength to at least 4+/5 in order to demonstrate improved hip strength needed for gait, balance, and stairs LTG Duration 10 weeks Three Impairment strength Impairment L hip strength 4-/5 except IR 3+/5 MMT Short Term Goal (STG) Pt will improve L global hip strength to at least 4/5 in order to demonstrate improved hip strength needed for gait, balance, and stairs STG Duration 5 weeks Assisted Goal (LTG) Pt will improve L global hip strength to at least 4+/5 in order to demonstrate improved hip strength needed for gait, balance, and stairs LTG Duration 10 weeks Two Impairment strength Impairment 30 second STS = 10 Assisted Goal (LTG) Pt will be able to perform at least 15 sit to stands within 30 seconds without compensation or pain in order to demonstrate improved BLE strength and tolerance for activity. LTG Duration 10 weeks One Impairment function Impairment LEFS 32/80 Gullet Slitter Goal (LTG) Pt will increase LEFS score to greater than 50/80 in order to demonstrate improved tolerance for ADLs and activity. LTG Duration 10 weeks Assessment Summary Assessment Bambi into session unable to perform a full SLR right LE, reports groin pain on attempt, post manual therapy, able to perform a SLR and reports having no groin pain. Patient reports difficulty with stairs persist and would benefit from progression of strengthening for progression of functional mobility. Physical Therapy Plan Frequency and Duration Frequency of Treatment 2x/Week Duration of treatment (weeks) 10 Plan of Care Start Date 09/29/23 Plan of Care End Date 12/08/23 Next Visit Focus/Plan Next Note Type Treatment Note Next Visit Plan Trial: teach rolling out of bed to R (possible log roll). Possible hip mobilizations depending on tolerance Continue BLE strengthening: gonzalez stretch, seated vs standing hip flex, heel raises , progress STS with band from lower seat height, side steps. Begin gentle balance and gait training *Fall risk, ask her to use spc if difficulty with ambulation Update POC 10/29
--- NOTE | 2023-10-15 14:20 | PT.OTN ---
Current Diagnoses Other chronic pain (10/15/23) Pain in right knee (10/15/23) Pain in left knee (10/15/23) Dorsalgia, unspecified (10/15/23) Physical Therapy Treatment Note PT-OP-A Visit Information Start: 09/29/23 09:02 Freq: Status: Active Protocol: Document 10/15/23 08:21 AB (Rec: 10/15/23 14:20 AB [id number]) Out-Patient Physical Therapy Visit Information Visit Information Visit Type Treatment Note Visit Note KX after 19th visit Access code [email or web address] [facility] Visit Start Time 12:29 Visit Stop Time 13:44 Visit Number 5 Number of EPIC CADENCE ANALYST Visits 2 Evaluation Information Evaluation Date 09/29/23 Precautions Precautions Fall risk PT-OP-B Current Condition Start: 09/29/23 09:02 Freq: Status: Active Protocol: Document 09/29/23 09:02 NM (Rec: 09/29/23 10:30 NM [id number]) Current Condition History of Current Condition Onset Date early 2021 Current Complaints BLE weakness, pain in anterolateral hips History of Current Condition Pt presents to clinic with occasional pain in her lumbar spine, along with B hip and knee pain beginning in early 2021. Pt reports that she used to be sedentary and has lost a lot of weight; however, she is just very weak and has pain with activity. She reports difficulty with ambulation, particularly due to pain in the front of her hips. 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 She developed lymphedema recently and is being treated for that as well. Overall, she reports extensive fatigue with activities, particularly when having to stand or ambulate for greater than 10 minutes; relieved with rest. She also reports knee/hip pain with stairs, particulary during descent. She reports no falls but states that she feels off balance during standing and gait. She used to use a spc for gait for the past 10-11 months, but reports that she has felt stronger in the last 2-3 weeks and hasn't needed the spc (taking the stairs 5- 6x/day at home). Previous meniscus injury to L knee; current injury to L shoulder from lifting an object last week. 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 Treatment Goals Patient/Caregiver Goals Decrease pain, get back to ballroom dancing Current Functional Impairments (Reported) Functional Limitations- ADL's Difficulty with ADLs involving fwd trunk flexion Functional Limitations- Mobility/Gait Unable to walk/stand >10 min due to B hip and knee pain, prn spc use PT-OP-C Subjective Start: 09/29/23 09:02 Freq: Status: Active Protocol: Document 10/15/23 08:21 AB (Rec: 10/15/23 14:20 AB [id number]) OP-PT Subjective Patient Comments Patient Comments Patient reports that she is starting to feel little changes. (positive) Patient reports she did have knee and hip pain post sit to stand exercises. PT-OP-D Balance Start: 09/29/23 09:02 Freq: Status: Active Protocol: Document 09/29/23 09:02 NM (Rec: 09/29/23 10:30 NM [id number]) OP-PT Balance Assessment Sitting Balance Static Sitting Balance Ability Normal Dynamic Sitting Balance Ability Normal Standing Balance Static Standing Balance Ability Fair Dynamic Standing Balance Ability Fair Balance Tests Romberg Romberg 10 seconds, mild trunk sway, no LOB Single Limb Standing Single Limb- Right 1 second Single Limb- Left 2 seconds Tandem Tandem Standing difficulty with getting into position; maintains <2 sec Espinal Fall Scale Copyright Permission PT-OP-E Functional Tests Start: 09/29/23 09:02 Freq: Status: Active Protocol: Document 09/29/23 09:02 NM (Rec: 09/29/23 10:30 NM [id number]) Functional Tests 30 Second Sit to Stand Test Score 10 reps Comments no pain reported but slow; no UE use Tinetti Balance and Gait Assessment Balance Score 11 Gait Score 7 Composite Score 18/28 PT-OP-F Manual Assessment Start: 09/29/23 09:02 Freq: Status: Active Protocol: Document 09/29/23 09:02 NM (Rec: 09/29/23 10:30 NM [id number]) Manual Assessments Soft Tissue Assessment Soft Tissue Mobility Assessment Mild soft tissue restrictions of B lumbar paraspinals/QL, but not tender to palpation. Demos B hip flexor tightness, pain with R hip pain Joint Mobility Assessment Joint Mobility Assessment Full L hip PROM. Limited R hip PROM, demos guarding with flexion verena into IR>ER and painful. No instability of B knees noted. No clicking, popping, locking, giving out of B hips or knees. PT-OP-G Mobility & Gait Start: 09/29/23 09:02 Freq: Status: Active Protocol: Document 09/29/23 09:02 NM (Rec: 09/29/23 10:30 NM [id number]) OP Mobility Evaluation Bed Mobility Rolling Difficulty with rolling due to pain. Sits up from supine to EOB then transfers to prone OP Gait Assessment Gait Gait Assistance Required: Independent Distance (Feet) 150 Assistive Devices Assistive Device None Gait Deviations General Gait Pattern Antalgic,Flexed Trunk Factors Limiting Gait Function Factors Limiting Gait Function Decreased Activity Tolerance, Decreased Strength,Limited Range of Motion,Pain,Poor Balance Comments Gait Comments Antalgic gait pattern with fwd flexed trunk posture, mild- mod trunk sway. Lateral trunk deviation PT-OP-H Neuro Start: 09/29/23 09:02 Freq: Status: Active Protocol: Document 09/29/23 09:02 NM (Rec: 09/29/23 10:30 NM [id number]) Sensation Evaluation Gross Sensation Gross Sensation WNL Comments Summary Comments BLE intact to light touch sensation equally despite reported numbness in L 2nd and 3rd toes Deep Tendon Reflex & Clonus Assessment Deep Tendon Reflex Bilateral Patellar Deep Tendon Reflex 1+ Diminished PT-OP-J Posture/Palpation/Skin Start: 09/29/23 09:02 Freq: Status: Active Protocol: Document 09/29/23 09:02 NM (Rec: 09/29/23 10:30 NM [id number]) Posture Evaluation Position Standing Evaluation View posterior, lateral Head/C-Spine Posture Forward Head L-Spine Posture Increased Lordosis Shoulder Posture (L) Forward,(R) Forward,(L) Elevated Scapula Posture (L) Protracted,(R) Protracted Arm Posture (L) Internally Rotated,(R) Internally Rotated Pelvis Posture Anteriorly Tilted,(L) Iliac Crest Superior Weight Distribution Weight Shifted Right Knee Posture (L) Genu Varus,(R) Genu Varus Patellar Posture (L) Superior,(R) Superior Palpation Assessment Location Lumbar spine Palpation Location L4-S1, SI joints, Palpation Findings Tenderness Palpation Details Tender to palpation along spinous processes of L4-S1, L4 is most tender. B hips Palpation Location greater trochanter, gluteals Palpation Findings Soft Tissue Tightness,Spasm, Muscle Guarding,Tenderness Palpation Details Tenderness to B greater trochanters (L>R), worse with internal/external rotation. Muscle guarding and tenderness of B gluteals, L>R. PT-OP-K Range of Motion Start: 09/29/23 09:02 Freq: Status: Active Protocol: Document 09/29/23 09:02 NM (Rec: 09/29/23 10:30 NM [id number]) Lumbar Spine Range of Motion Lumbar Spine Active Percentage Testing Position Standing Flexion 80 Extension 100 Rotation Left 100 Rotation Right 100 Lateral Flexion Left 75 Lateral Flexion Right 75 Comments Minimal low back pain with trunk flexion, none with any other motions. Cued to keep knees straight during flex/ext motions Hip Goniometric Range of Motion Hip Right Flexion w/Knee Flexed 90 Internal Rotation 20 External Rotation 20 Comments Passive hip flexion 110 deg. Hip/greater trochanter pain with internal rotation Left Flexion w/Knee Flexed 115 Internal Rotation 25 External Rotation 30 Comments Passive hip flexion 110 deg. Hip/greater trochanter pain with internal rotation. Knee Goniometric Range of Motion Knee ROM Limitations Comments B knee ROM WFL PT-OP-L Special Tests Start: 09/29/23 09:02 Freq: Status: Active Protocol: Document 09/29/23 09:02 NM (Rec: 09/29/23 10:30 NM [id number]) Special Tests Lumbar Spine Special Tests Straight Leg Raise Test Results negative Comments does not reproduce local or referred pain Michael/Quadrant Test Results negative Comments does not reproduce local or referred pain Hip Special Tests Scour Test Test Results negative bilaterally Anterior Labral Test Test Results negative bilaterally FADIR Test Results positive bilaterally (L>R) Comments Reproduces pain along B greater trochanter and posterior glutes. Moderate muscle guarding verena with L. Minimal pain reported in anterior hip/groin PT-OP-M Strength Start: 09/29/23 09:02 Freq: Status: Active Protocol: Document 09/29/23 09:02 NM (Rec: 09/29/23 10:30 NM [id number]) Trunk Strength Trunk Manual Muscle Testing Testing Position supine, sitting Flexion 3+ Fair+ Extension 4 Good Rotation Left 4 Good Rotation Right 4 Good Lateral Flexion Left 4 Good Lateral Flexion Right 4 Good Comments Able to withstand minimal resisted flexion, but not painful. Attempts to compensate, poor functional core stabilization verena with rolling Hip Strength Hip Manual Muscle Testing Right Flexion (L2) 3+ Fair+ Extension (S1) 3+ Fair+ Abduction 3+ Fair+ Adduction 3+ Fair+ External Rotation 3+ Fair+ Internal Rotation 3+ Fair+ Comments Pain with resisted IR > flexion Left Flexion (L2) 4- Good- Extension (S1) 4- Good- Abduction 4- Good- Adduction 4- Good- External Rotation 4- Good- Internal Rotation 3+ Fair+ Comments Pain with resisted IR Knee Strength Knee Manual Muscle Testing Right Flexion (S2) 4 Good Extension (L3) 4 Good Left Flexion (S2) 4 Good Extension (L3) 4 Good Ankle/Foot Strength Ankle and Foot Manual Muscle Testing Right Dorsiflexion (L4) 4+ Good+ Plantarflexion (S1) 4+ Good+ Left Dorsiflexion (L4) 4+ Good+ Plantarflexion (S1) 4+ Good+ PT-OP-Q Treatments Start: 09/29/23 09:02 Freq: Status: Active Protocol: Document 10/15/23 08:21 AB (Rec: 10/15/23 14:20 AB [id number]) Therapeutic Exercises Supine Exercises Luther stretch Supine Exercise Name edge of bed Side bilateral Equipment Used hooklying with LE of mat Reps/Minutes 90 sec X 2 Comments monitored for back pain Sitting Exercises hip abduction Sitting Exercise Name seated hip abduction with band Side bilateral Resistance light green band Reps/Minutes 2X10 Comments verbal cues to perform slowly Standing Exercises squat with band Standing Exercise Name squat 1/2 to chair band above knees Side bilateral Resistance 3 lb light green band Reps/Minutes 2X10 Comments VC buttocks back, tension on band and natalia for pain bilateral heel raise Standing Exercise Name B HR Side bilateral Reps/Minutes 2X10 Comments Pt ed rationale of lowering heels slowly for carryover to controlling momen Manual Therapy Treatment Soft Tissue Mobilization L hip Body Location Gluteal piriformis area Mobilization Type Rolling Intensity/Depth Moderate Body Position Sidelying Comments monitored for pain, performed pre stretch into hip IR R hip Body Location gluteal piriformis area Mobilization Type Rolling Intensity/Depth Moderate Body Position Sidelying Comments monitored for pain Manual Techniques PROM hip IR Type PROM hip IR Body Location left and right hip Body Position Sitting Reps/Duration 3 one minute right X 2 left Comments contract relax Neuro Re-Education Treatment Balance Activities tandem stance with eyes closed Details close sueprvision Reps/Duration X3 L fwd X 3 right fwd Comments Increased effort to position LE's requires UE support for set up Romberg with eyes closed Details close supervision Reps/Duration X3 Comments increased trunk sway noted Other Activities glute med activation Details seated with band light green Reps/Duration 1 one minute Comments Verbal and visual cues. Patient ed rationale of one minute hold for activation Self-Care/Home Management Treatment Education Other Education Patient ed rationale of using SPC especially when out in community, given limited SLS test and increased difficulty with balanc activities this session. PT-OP-T Assessment and Plan Start: 09/29/23 09:02 Freq: Status: Active Protocol: Document 10/15/23 08:21 AB (Rec: 10/15/23 14:20 AB [id number]) Physical Therapy Assessment Goals Seven Impairment balance Impairment Tinetti 18/28 Short Term Goal (STG) Pt will improve Tinetti score to at least 20/28 in order to demonstate decrease fall risk and improved balance STG Duration 5 weeks Usp Goal (LTG) Pt will improve Tinetti score to at least 24/28 in order to demonstate decrease fall risk and improved balance LTG Duration 10 weeks Six Impairment balance Impairment tandem stance <2 seconds, difficulty getting into position Short Term Goal (STG) Pt will be able to position without assistance in tandem stance without LOB in order to demonstrate improved balance required for gait, recreational dancing STG Duration 5 weeks Usp Goal (LTG) Pt will be able to stand at least 15 seconds in tandem stance without LOB in order to demonstrate improved balance required for gait LTG Duration 10 weeks Five Impairment gait Impairment Pt reports unable to ambulate more than 10 minutes before a seated rest break due to pain Short Term Goal (STG) Pt will be able to ambulate using LRAD or no AD for community distances (at least 600 ft) in order to demonstrate improved BLE strength, pain management, and activity tolerance STG Duration 5 weeks Interior Design Teacher Goal (LTG) Pt will report that she can ambulate using LRAD or no AD for at least 20 minutes in order to demonstrate improved BLE strength, pain management, and activity tolerance LTG Duration 10 weeks Four Impairment strength Impairment R hip strength 3+/5 MMT Short Term Goal (STG) Pt will improve R hip global hip strength to at least 4/5 in order to demonstrate improved hip strength needed for gait, balance, and stairs STG Duration 5 weeks Usp Goal (LTG) Pt will improve R hip global hip strength to at least 4+/5 in order to demonstrate improved hip strength needed for gait, balance, and stairs LTG Duration 10 weeks Three Impairment strength Impairment L hip strength 4-/5 except IR 3+/5 MMT Short Term Goal (STG) Pt will improve L global hip strength to at least 4/5 in order to demonstrate improved hip strength needed for gait, balance, and stairs STG Duration 5 weeks Usp Goal (LTG) Pt will improve L global hip strength to at least 4+/5 in order to demonstrate improved hip strength needed for gait, balance, and stairs LTG Duration 10 weeks Two Impairment strength Impairment 30 second STS = 10 Usp Goal (LTG) Pt will be able to perform at least 15 sit to stands within 30 seconds without compensation or pain in order to demonstrate improved BLE strength and tolerance for activity. LTG Duration 10 weeks One Impairment function Impairment LEFS 32/80 Usp Goal (LTG) Pt will increase LEFS score to greater than 50/80 in order to demonstrate improved tolerance for ADLs and activity. LTG Duration 10 weeks Assessment Summary Assessment Balance continues to be limited with patient performing SLS 2 seconds left and right LE without UE use, but patient was able to carina gentle balance ex in bilateral weight bearing positions this session. Physical Therapy Plan Frequency and Duration Frequency of Treatment 2x/Week Duration of treatment (weeks) 10 Plan of Care Start Date 09/29/23 Plan of Care End Date 12/08/23 Next Visit Focus/Plan Next Note Type Treatment Note Next Visit Plan Balance, assess left calf length, progress squat as able , glute med strengthening if patient reports good tolerance to HEP
--- NOTE | 2023-10-18 14:05 | PT.OTN ---
Current Diagnoses Other chronic pain (10/18/23) Pain in right knee (10/18/23) Pain in left knee (10/18/23) Dorsalgia, unspecified (10/18/23) Physical Therapy Treatment Note PT-OP-A Visit Information Start: 09/29/23 09:02 Freq: Status: Active Protocol: Document 10/18/23 08:05 AB (Rec: 10/18/23 14:04 AB [id number]) Out-Patient Physical Therapy Visit Information Visit Information Visit Type Treatment Note Visit Note KX after th visit Access code [email or web address] [facility] Visit Start Time 13:00 Visit Stop Time 13:44 Visit Number 6 Number of SHAKE FEEDER Visits 3 Precautions Precautions Fall risk PT-OP-B Current Condition Start: 09/29/23 09:02 Freq: Status: Active Protocol: Document 09/29/23 09:02 NM (Rec: 09/29/23 10:30 NM [id number]) Current Condition History of Current Condition Onset Date early 2021 Current Complaints BLE weakness, pain in anterolateral hips History of Current Condition Pt presents to clinic with occasional pain in her lumbar spine, along with B hip and knee pain beginning in early 2021. Pt reports that she used to be sedentary and has lost a lot of weight; however, she is just very weak and has pain with activity. She reports difficulty with ambulation, particularly due to pain in the front of her hips. 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 She developed lymphedema recently and is being treated for that as well. Overall, she reports extensive fatigue with activities, particularly when having to stand or ambulate for greater than 10 minutes; relieved with rest. She also reports knee/hip pain with stairs, particulary during descent. She reports no falls but states that she feels off balance during standing and gait. She used to use a spc for gait for the past 10-11 months, but reports that she has felt stronger in the last 2-3 weeks and hasn't needed the spc (taking the stairs 5- 6x/day at home). Previous meniscus injury to L knee; current injury to L shoulder from lifting an object last week. 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 Treatment Goals Patient/Caregiver Goals Decrease pain, get back to ballroom dancing Current Functional Impairments (Reported) Functional Limitations- ADL's Difficulty with ADLs involving fwd trunk flexion Functional Limitations- Mobility/Gait Unable to walk/stand >10 min due to B hip and knee pain, prn spc use PT-OP-C Subjective Start: 09/29/23 09:02 Freq: Status: Active Protocol: Document 10/18/23 08:05 AB (Rec: 10/18/23 14:04 AB [id number]) OP-PT Subjective Patient Comments Patient Comments Patient reports right groin pain persists, 2-3/10 now, comments no increased pain with the exercise. Patient reports the burning pain in the lower LE's is less now. PT-OP-D Balance Start: 09/29/23 09:02 Freq: Status: Active Protocol: Document 09/29/23 09:02 NM (Rec: 09/29/23 10:30 NM [id number]) OP-PT Balance Assessment Sitting Balance Static Sitting Balance Ability Normal Dynamic Sitting Balance Ability Normal Standing Balance Static Standing Balance Ability Fair Dynamic Standing Balance Ability Fair Balance Tests Romberg Romberg 10 seconds, mild trunk sway, no LOB Single Limb Standing Single Limb- Right 1 second Single Limb- Left 2 seconds Tandem Tandem Standing difficulty with getting into position; maintains <2 sec Espinal Fall Scale Copyright Permission PT-OP-E Functional Tests Start: 09/29/23 09:02 Freq: Status: Active Protocol: Document 09/29/23 09:02 NM (Rec: 09/29/23 10:30 NM [id number]) Functional Tests 30 Second Sit to Stand Test Score 10 reps Comments no pain reported but slow; no UE use Tinetti Balance and Gait Assessment Balance Score 11 Gait Score 7 Composite Score 18/28 PT-OP-F Manual Assessment Start: 09/29/23 09:02 Freq: Status: Active Protocol: Document 09/29/23 09:02 NM (Rec: 09/29/23 10:30 NM [id number]) Manual Assessments Soft Tissue Assessment Soft Tissue Mobility Assessment Mild soft tissue restrictions of B lumbar paraspinals/QL, but not tender to palpation. Demos B hip flexor tightness, pain with R hip pain Joint Mobility Assessment Joint Mobility Assessment Full L hip PROM. Limited R hip PROM, demos guarding with flexion verena into IR>ER and painful. No instability of B knees noted. No clicking, popping, locking, giving out of B hips or knees. PT-OP-G Mobility & Gait Start: 09/29/23 09:02 Freq: Status: Active Protocol: Document 09/29/23 09:02 NM (Rec: 09/29/23 10:30 NM [id number]) OP Mobility Evaluation Bed Mobility Rolling Difficulty with rolling due to pain. Sits up from supine to EOB then transfers to prone OP Gait Assessment Gait Gait Assistance Required: Independent Distance (Feet) 150 Assistive Devices Assistive Device None Gait Deviations General Gait Pattern Antalgic,Flexed Trunk Factors Limiting Gait Function Factors Limiting Gait Function Decreased Activity Tolerance, Decreased Strength,Limited Range of Motion,Pain,Poor Balance Comments Gait Comments Antalgic gait pattern with fwd flexed trunk posture, mild- mod trunk sway. Lateral trunk deviation PT-OP-H Neuro Start: 09/29/23 09:02 Freq: Status: Active Protocol: Document 09/29/23 09:02 NM (Rec: 09/29/23 10:30 NM [id number]) Sensation Evaluation Gross Sensation Gross Sensation WNL Comments Summary Comments BLE intact to light touch sensation equally despite reported numbness in L 2nd and 3rd toes Deep Tendon Reflex & Clonus Assessment Deep Tendon Reflex Bilateral Patellar Deep Tendon Reflex 1+ Diminished PT-OP-J Posture/Palpation/Skin Start: 09/29/23 09:02 Freq: Status: Active Protocol: Document 09/29/23 09:02 NM (Rec: 09/29/23 10:30 NM [id number]) Posture Evaluation Position Standing Evaluation View posterior, lateral Head/C-Spine Posture Forward Head L-Spine Posture Increased Lordosis Shoulder Posture (L) Forward,(R) Forward,(L) Elevated Scapula Posture (L) Protracted,(R) Protracted Arm Posture (L) Internally Rotated,(R) Internally Rotated Pelvis Posture Anteriorly Tilted,(L) Iliac Crest Superior Weight Distribution Weight Shifted Right Knee Posture (L) Genu Varus,(R) Genu Varus Patellar Posture (L) Superior,(R) Superior Palpation Assessment Location Lumbar spine Palpation Location L4-S1, SI joints, Palpation Findings Tenderness Palpation Details Tender to palpation along spinous processes of L4-S1, L4 is most tender. B hips Palpation Location greater trochanter, gluteals Palpation Findings Soft Tissue Tightness,Spasm, Muscle Guarding,Tenderness Palpation Details Tenderness to B greater trochanters (L>R), worse with internal/external rotation. Muscle guarding and tenderness of B gluteals, L>R. PT-OP-K Range of Motion Start: 09/29/23 09:02 Freq: Status: Active Protocol: Document 09/29/23 09:02 NM (Rec: 09/29/23 10:30 NM [id number]) Lumbar Spine Range of Motion Lumbar Spine Active Percentage Testing Position Standing Flexion 80 Extension 100 Rotation Left 100 Rotation Right 100 Lateral Flexion Left 75 Lateral Flexion Right 75 Comments Minimal low back pain with trunk flexion, none with any other motions. Cued to keep knees straight during flex/ext motions Hip Goniometric Range of Motion Hip Right Flexion w/Knee Flexed 90 Internal Rotation 20 External Rotation 20 Comments Passive hip flexion 110 deg. Hip/greater trochanter pain with internal rotation Left Flexion w/Knee Flexed 115 Internal Rotation 25 External Rotation 30 Comments Passive hip flexion 110 deg. Hip/greater trochanter pain with internal rotation. Knee Goniometric Range of Motion Knee ROM Limitations Comments B knee ROM WFL PT-OP-L Special Tests Start: 09/29/23 09:02 Freq: Status: Active Protocol: Document 09/29/23 09:02 NM (Rec: 09/29/23 10:30 NM [id number]) Special Tests Lumbar Spine Special Tests Straight Leg Raise Test Results negative Comments does not reproduce local or referred pain Michael/Quadrant Test Results negative Comments does not reproduce local or referred pain Hip Special Tests Scour Test Test Results negative bilaterally Anterior Labral Test Test Results negative bilaterally FADIR Test Results positive bilaterally (L>R) Comments Reproduces pain along B greater trochanter and posterior glutes. Moderate muscle guarding verena with L. Minimal pain reported in anterior hip/groin PT-OP-M Strength Start: 09/29/23 09:02 Freq: Status: Active Protocol: Document 09/29/23 09:02 NM (Rec: 09/29/23 10:30 NM [id number]) Trunk Strength Trunk Manual Muscle Testing Testing Position supine, sitting Flexion 3+ Fair+ Extension 4 Good Rotation Left 4 Good Rotation Right 4 Good Lateral Flexion Left 4 Good Lateral Flexion Right 4 Good Comments Able to withstand minimal resisted flexion, but not painful. Attempts to compensate, poor functional core stabilization verena with rolling Hip Strength Hip Manual Muscle Testing Right Flexion (L2) 3+ Fair+ Extension (S1) 3+ Fair+ Abduction 3+ Fair+ Adduction 3+ Fair+ External Rotation 3+ Fair+ Internal Rotation 3+ Fair+ Comments Pain with resisted IR > flexion Left Flexion (L2) 4- Good- Extension (S1) 4- Good- Abduction 4- Good- Adduction 4- Good- External Rotation 4- Good- Internal Rotation 3+ Fair+ Comments Pain with resisted IR Knee Strength Knee Manual Muscle Testing Right Flexion (S2) 4 Good Extension (L3) 4 Good Left Flexion (S2) 4 Good Extension (L3) 4 Good Ankle/Foot Strength Ankle and Foot Manual Muscle Testing Right Dorsiflexion (L4) 4+ Good+ Plantarflexion (S1) 4+ Good+ Left Dorsiflexion (L4) 4+ Good+ Plantarflexion (S1) 4+ Good+ PT-OP-Q Treatments Start: 09/29/23 09:02 Freq: Status: Active Protocol: Document 10/18/23 08:05 AB (Rec: 10/18/23 14:04 AB [id number]) Therapeutic Exercises Sitting Exercises piriformis stretch Sitting Exercise Name piriformis stretch Side bilateral Reps/Minutes 1 X 1 min Comments verbal and tactile cues Standing Exercises calf stretch Standing Exercise Name standing at wall Side bilateral Reps/Minutes X2 each 60 sec Comments verbal cues Manual Therapy Treatment Soft Tissue Mobilization L hip Body Location Gluteal piriformis area Mobilization Type Rolling Intensity/Depth Moderate Body Position Sidelying Comments monitored for pain, performed pre stretch into hip IR R hip Body Location gluteal piriformis area Mobilization Type Rolling Intensity/Depth Moderate Body Position Sidelying Comments monitored for pain Joint Mobilizations LAD Joint right hip long axis distraction Grade IV Body Position Hooklying Reps/Duration 2 min Comments monitored for pain right hip joint mobilizations Joint right hip Direction AP grade IV lat grade II Body Position Hooklying Reps/Duration X5 X 4 Comments Monitored for pain Manual Techniques PROM hip IR Type PROM hip IR Body Location left and right hip Body Position Sitting Reps/Duration 1 one minute holds Comments contract relax Neuro Re-Education Treatment Balance Activities grapevine stepping Details hands above paralle bars Reps/Duration 10 feet X 4 Comments close supervision verbal and visual cues tandem stepping Details hands above parallel bars Reps/Duration 10 feet X 4 Comments close supervision, vc for heel toe pattern marching in place Details hands above parallel bars Reps/Duration 10 steps Comments close supervision Other Activities glute med activation Details seated with band light green Reps/Duration 1 one minute X2 Comments Verbal and visual cues. Patient ed rationale of one minute hold for activation PT-OP-T Assessment and Plan Start: 09/29/23 09:02 Freq: Status: Active Protocol: Document 10/18/23 08:05 AB (Rec: 10/18/23 14:04 AB [id number]) Physical Therapy Assessment Goals Seven Impairment balance Impairment Tinetti 18/28 Short Term Goal (STG) Pt will improve Tinetti score to at least 20/28 in order to demonstate decrease fall risk and improved balance STG Duration 5 weeks Snf Goal (LTG) Pt will improve Tinetti score to at least 24/28 in order to demonstate decrease fall risk and improved balance LTG Duration 10 weeks Six Impairment balance Impairment tandem stance <2 seconds, difficulty getting into position Short Term Goal (STG) Pt will be able to position without assistance in tandem stance without LOB in order to demonstrate improved balance required for gait, recreational dancing STG Duration 5 weeks Snf Goal (LTG) Pt will be able to stand at least 15 seconds in tandem stance without LOB in order to demonstrate improved balance required for gait LTG Duration 10 weeks Five Impairment gait Impairment Pt reports unable to ambulate more than 10 minutes before a seated rest break due to pain Short Term Goal (STG) Pt will be able to ambulate using LRAD or no AD for community distances (at least 600 ft) in order to demonstrate improved BLE strength, pain management, and activity tolerance STG Duration 5 weeks Snf Goal (LTG) Pt will report that she can ambulate using LRAD or no AD for at least 20 minutes in order to demonstrate improved BLE strength, pain management, and activity tolerance LTG Duration 10 weeks Four Impairment strength Impairment R hip strength 3+/5 MMT Short Term Goal (STG) Pt will improve R hip global hip strength to at least 4/5 in order to demonstrate improved hip strength needed for gait, balance, and stairs STG Duration 5 weeks [employer]st Goal (LTG) Pt will improve R hip global hip strength to at least 4+/5 in order to demonstrate improved hip strength needed for gait, balance, and stairs LTG Duration 10 weeks Three Impairment strength Impairment L hip strength 4-/5 except IR 3+/5 MMT Short Term Goal (STG) Pt will improve L global hip strength to at least 4/5 in order to demonstrate improved hip strength needed for gait, balance, and stairs STG Duration 5 weeks [employer] Goal (LTG) Pt will improve L global hip strength to at least 4+/5 in order to demonstrate improved hip strength needed for gait, balance, and stairs LTG Duration 10 weeks Two Impairment strength Impairment 30 second STS = 10 [employer]st Goal (LTG) Pt will be able to perform at least 15 sit to stands within 30 seconds without compensation or pain in order to demonstrate improved BLE strength and tolerance for activity. LTG Duration 10 weeks One Impairment function Impairment LEFS 32/80 [employer]st Goal (LTG) Pt will increase LEFS score to greater than 50/80 in order to demonstrate improved tolerance for ADLs and activity. LTG Duration 10 weeks Assessment Summary Assessment SLS 2 seconds left and right LE start of session, 3 sec right 2 sec left end of session. Left and right knee to wall with great toe 4.5 cm from the wall body over ankle DF (prior to heel off the floor start of session), good tolerance to calf stretch. Physical Therapy Plan Frequency and Duration Frequency of Treatment 2x/Week Duration of treatment (weeks) 10 Plan of Care Start Date 09/29/23 Plan of Care End Date 12/08/23 Next Visit Focus/Plan Next Note Type Treatment Note Next Visit Plan hip mobilization, progress band for glute med strengthening and squat, Balance
--- NOTE | 2023-10-22 16:30 | PT.OTN ---
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 Pt reports that she used to be sedentary and has lost a lot of weight; however, she is just very weak and has pain with activity. She reports difficulty with ambulation, particularly due to pain in the front of her hips. 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 She developed lymphedema recently and is being treated for that as well. Overall, she reports extensive fatigue with activities, particularly when having to stand or ambulate for greater than 10 minutes; relieved with rest. She also reports knee/hip pain with stairs, particulary during descent. She reports no falls but states that she feels off balance during standing and gait. She used to use a spc for gait for the past 10-11 months, but reports that she has felt stronger in the last 2-3 weeks and hasn't needed the spc (taking the stairs 5- 6x/day at home). Previous meniscus injury to L knee; current injury to L shoulder from lifting an object last week. 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 Treatment Goals Patient/Caregiver Goals Decrease pain, get back to ballroom dancing Current Functional Impairments (Reported) Functional Limitations- ADL's Difficulty with ADLs involving fwd trunk flexion Functional Limitations- Mobility/Gait Unable to walk/stand >10 min due to B hip and knee pain, prn spc use PT-OP-C Subjective Start: 09/29/23 09:02 Freq: Status: Active Protocol: Document 10/22/23 14:11 AB (Rec: 10/22/23 16:30 AB [id number]) OP-PT Subjective Patient Comments Patient Comments Patient reports hip pain is ok , but cannot lift right LE without groin pain. PT-OP-D Balance Start: 09/29/23 09:02 Freq: Status: Active Protocol: Document 09/29/23 09:02 NM (Rec: 09/29/23 10:30 NM [id number]) OP-PT Balance Assessment Sitting Balance Static Sitting Balance Ability Normal Dynamic Sitting Balance Ability Normal Standing Balance Static Standing Balance Ability Fair Dynamic Standing Balance Ability Fair Balance Tests Romberg Romberg 10 seconds, mild trunk sway, no LOB Single Limb Standing Single Limb- Right 1 second Single Limb- Left 2 seconds Tandem Tandem Standing difficulty with getting into position; maintains <2 sec Espinal Fall Scale Copyright Permission PT-OP-E Functional Tests Start: 09/29/23 09:02 Freq: Status: Active Protocol: Document 09/29/23 09:02 NM (Rec: 09/29/23 10:30 NM [id number]) Functional Tests 30 Second Sit to Stand Test Score 10 reps Comments no pain reported but slow; no UE use Tinetti Balance and Gait Assessment Balance Score 11 Gait Score 7 Composite Score PT-OP-F Manual Assessment Start: 09/29/23 09:02 Freq: Status: Active Protocol: Document 09/29/23 09:02 NM (Rec: 09/29/23 10:30 NM [id number]) Manual Assessments Soft Tissue Assessment Soft Tissue Mobility Assessment Mild soft tissue restrictions of B lumbar paraspinals/QL, but not tender to palpation. Demos B hip flexor tightness, pain with R hip pain Joint Mobility Assessment Joint Mobility Assessment Full L hip PROM. Limited R hip PROM, demos guarding with flexion verena into IR>ER and painful. No instability of B knees noted. No clicking, popping, locking, giving out of B hips or knees. PT-OP-G Mobility & Gait Start: 09/29/23 09:02 Freq: Status: Active Protocol: Document 09/29/23 09:02 NM (Rec: 09/29/23 10:30 NM [id number]) OP Mobility Evaluation Bed Mobility Rolling Difficulty with rolling due to pain. Sits up from supine to EOB then transfers to prone OP Gait Assessment Gait Gait Assistance Required: Independent Distance (Feet) 150 Assistive Devices Assistive Device None Gait Deviations General Gait Pattern Antalgic,Flexed Trunk Factors Limiting Gait Function Factors Limiting Gait Function Decreased Activity Tolerance, Decreased Strength,Limited Range of Motion,Pain,Poor Balance Comments Gait Comments Antalgic gait pattern with fwd flexed trunk posture, mild- mod trunk sway. Lateral trunk deviation PT-OP-H Neuro Start: 09/29/23 09:02 Freq: Status: Active Protocol: Document 09/29/23 09:02 NM (Rec: 09/29/23 10:30 NM [id number]) Sensation Evaluation Gross Sensation Gross Sensation WNL Comments Summary Comments BLE intact to light touch sensation equally despite reported numbness in L 2nd and 3rd toes Deep Tendon Reflex & Clonus Assessment Deep Tendon Reflex Bilateral Patellar Deep Tendon Reflex 1+ Diminished PT-OP-J Posture/Palpation/Skin Start: 09/29/23 09:02 Freq: Status: Active Protocol: Document 09/29/23 09:02 NM (Rec: 09/29/23 10:30 NM [id number]) Posture Evaluation Position Standing Evaluation View posterior, lateral Head/C-Spine Posture Forward Head L-Spine Posture Increased Lordosis Shoulder Posture (L) Forward,(R) Forward,(L) Elevated Scapula Posture (L) Protracted,(R) Protracted Arm Posture (L) Internally Rotated,(R) Internally Rotated Pelvis Posture Anteriorly Tilted,(L) Iliac Crest Superior Weight Distribution Weight Shifted Right Knee Posture (L) Genu Varus,(R) Genu Varus Patellar Posture (L) Superior,(R) Superior Palpation Assessment Location Lumbar spine Palpation Location L4-S1, SI joints, Palpation Findings Tenderness Palpation Details Tender to palpation along spinous processes of L4-S1, L4 is most tender. B hips Palpation Location greater trochanter, gluteals Palpation Findings Soft Tissue Tightness,Spasm, Muscle Guarding,Tenderness Palpation Details Tenderness to B greater trochanters (L>R), worse with internal/external rotation. Muscle guarding and tenderness of B gluteals, L>R. PT-OP-K Range of Motion Start: 09/29/23 09:02 Freq: Status: Active Protocol: Document 09/29/23 09:02 NM (Rec: 09/29/23 10:30 NM [id number]) Lumbar Spine Range of Motion Lumbar Spine Active Percentage Testing Position Standing Flexion 80 Extension 100 Rotation Left 100 Rotation Right 100 Lateral Flexion Left 75 Lateral Flexion Right 75 Comments Minimal low back pain with trunk flexion, none with any other motions. Cued to keep knees straight during flex/ext motions Hip Goniometric Range of Motion Hip Right Flexion w/Knee Flexed 90 Internal Rotation 20 External Rotation 20 Comments Passive hip flexion 110 deg. Hip/greater trochanter pain with internal rotation Left Flexion w/Knee Flexed 115 Internal Rotation 25 External Rotation 30 Comments Passive hip flexion 110 deg. Hip/greater trochanter pain with internal rotation. Knee Goniometric Range of Motion Knee ROM Limitations Comments B knee ROM WFL PT-OP-L Special Tests Start: 09/29/23 09:02 Freq: Status: Active Protocol: Document 09/29/23 09:02 NM (Rec: 09/29/23 10:30 NM [id number]) Special Tests Lumbar Spine Special Tests Straight Leg Raise Test Results negative Comments does not reproduce local or referred pain Michael/Quadrant Test Results negative Comments does not reproduce local or referred pain Hip Special Tests Scour Test Test Results negative bilaterally Anterior Labral Test Test Results negative bilaterally FADIR Test Results positive bilaterally (L>R) Comments Reproduces pain along B greater trochanter and posterior glutes. Moderate muscle guarding verena with L. Minimal pain reported in anterior hip/groin PT-OP-M Strength Start: 09/29/23 09:02 Freq: Status: Active Protocol: Document 09/29/23 09:02 NM (Rec: 09/29/23 10:30 NM [id number]) Trunk Strength Trunk Manual Muscle Testing Testing Position supine, sitting Flexion 3+ Fair+ Extension 4 Good Rotation Left 4 Good Rotation Right 4 Good Lateral Flexion Left 4 Good Lateral Flexion Right 4 Good Comments Able to withstand minimal resisted flexion, but not painful. Attempts to compensate, poor functional core stabilization verena with rolling Hip Strength Hip Manual Muscle Testing Right Flexion (L2) 3+ Fair+ Extension (S1) 3+ Fair+ Abduction 3+ Fair+ Adduction 3+ Fair+ External Rotation 3+ Fair+ Internal Rotation 3+ Fair+ Comments Pain with resisted IR > flexion Left Flexion (L2) 4- Good- Extension (S1) 4- Good- Abduction 4- Good- Adduction 4- Good- External Rotation 4- Good- Internal Rotation 3+ Fair+ Comments Pain with resisted IR Knee Strength Knee Manual Muscle Testing Right Flexion (S2) 4 Good Extension (L3) 4 Good Left Flexion (S2) 4 Good Extension (L3) 4 Good Ankle/Foot Strength Ankle and Foot Manual Muscle Testing Right Dorsiflexion (L4) 4+ Good+ Plantarflexion (S1) 4+ Good+ Left Dorsiflexion (L4) 4+ Good+ Plantarflexion (S1) 4+ Good+ PT-OP-Q Treatments Start: 09/29/23 09:02 Freq: Status: Active Protocol: Document 10/22/23 14:11 AB (Rec: 10/22/23 16:30 AB [id number]) Therapeutic Exercises Supine Exercises knee to chest stretch Supine Exercise Name knee to chest with towel roll at groin Side right Reps/Minutes 2X Comments towel roll for gapping Luther stretch Supine Exercise Name edge of bed Side bilateral Equipment Used hooklying with LE of mat Reps/Minutes right X 2 X 1 left Comments monitored for back pain Sitting Exercises Seated weight shift Sitting Exercise Name seated lateral weight shift Side bilateral Reps/Minutes X15 Comments to relax muscles Standing Exercises squat with band Standing Exercise Name squat 1/2 to chair band above knees Side bilateral Resistance blue band Reps/Minutes X10 with blue band then 2X 10 holding 2 lb weights and blue band above knee Comments monitored for pain Manual Therapy Treatment Soft Tissue Mobilization right hip flexor Body Location at groin Mobilization Type Cross-Friction,Rolling Intensity/Depth Moderate Body Position Hooklying Comments monitored for pain R hip Body Location gluteal piriformis area Mobilization Type Rolling Intensity/Depth Moderate Body Position Sidelying Comments monitored for pain Joint Mobilizations LAD Joint right hip long axis distraction Grade IV Body Position Hooklying Reps/Duration 2 min Comments monitored for pain right hip joint mobilizations Joint right hip Direction AP grade IV lat grade II Body Position Hooklying Reps/Duration X5 X 2 Comments Monitored for pain Neuro Re-Education Treatment Balance Activities SLS on foam Details gait belt CGA hands above parallel bars Surface foam Reps/Duration X5 each LE Comments Verbal cues for scanning with eyes step up taps Details 4 inch step Surface floor Reps/Duration X10 left and right LE Comments gait belt CGA hands above parallel bars tandem stepping Details hands above parallel bars Reps/Duration 10 feet X 4 Comments close supervision, vc for heel toe pattern marching in place Details hands above parallel bars Reps/Duration 10 steps Comments close supervision Romberg with eyes closed Details gait belt CGA hands above parallel bars Reps/Duration X1 Other Activities glute med activation Details seated hip abd with blue band Reps/Duration 1 one minute X1 Comments Patient ed to perform prior to activities that require increased balance. PT-OP-T Assessment and Plan Start: 09/29/23 09:02 Freq: Status: Active Protocol: Document 10/22/23 14:11 AB (Rec: 10/22/23 16:30 AB [id number]) Physical Therapy Assessment Goals Seven Impairment balance Impairment Tinetti 18/28 Short Term Goal (STG) Pt will improve Tinetti score to at least 20/28 in order to demonstate decrease fall risk and improved balance STG Duration 5 weeks Skilled Nursing Goal (LTG) Pt will improve Tinetti score to at least 24/28 in order to demonstate decrease fall risk and improved balance LTG Duration 10 weeks Six Impairment balance Impairment tandem stance <2 seconds, difficulty getting into position Short Term Goal (STG) Pt will be able to position without assistance in tandem stance without LOB in order to demonstrate improved balance required for gait, recreational dancing STG Duration 5 weeks Skilled Nursing Goal (LTG) Pt will be able to stand at least 15 seconds in tandem stance without LOB in order to demonstrate improved balance required for gait LTG Duration 10 weeks Five Impairment gait Impairment Pt reports unable to ambulate more than 10 minutes before a seated rest break due to pain Short Term Goal (STG) Pt will be able to ambulate using LRAD or no AD for community distances (at least 600 ft) in order to demonstrate improved BLE strength, pain management, and activity tolerance STG Duration 5 weeks Skilled Nursing Goal (LTG) Pt will report that she can ambulate using LRAD or no AD for at least 20 minutes in order to demonstrate improved BLE strength, pain management, and activity tolerance LTG Duration 10 weeks Four Impairment strength Impairment R hip strength 3+/5 MMT Short Term Goal (STG) Pt will improve R hip global hip strength to at least 4/5 in order to demonstrate improved hip strength needed for gait, balance, and stairs STG Duration 5 weeks Service Delivery Analyst Goal (LTG) Pt will improve R hip global hip strength to at least 4+/5 in order to demonstrate improved hip strength needed for gait, balance, and stairs LTG Duration 10 weeks Three Impairment strength Impairment L hip strength 4-/5 except IR 3+/5 MMT Short Term Goal (STG) Pt will improve L global hip strength to at least 4/5 in order to demonstrate improved hip strength needed for gait, balance, and stairs STG Duration 5 weeks Skilled Nursing Goal (LTG) Pt will improve L global hip strength to at least 4+/5 in order to demonstrate improved hip strength needed for gait, balance, and stairs LTG Duration 10 weeks Two Impairment strength Impairment 30 second STS = 10 Service Delivery Analyst Goal (LTG) Pt will be able to perform at least 15 sit to stands within 30 seconds without compensation or pain in order to demonstrate improved BLE strength and tolerance for activity. LTG Duration 10 weeks One Impairment function Impairment LEFS 32/80 Skilled Nursing Goal (LTG) Pt will increase LEFS score to greater than 50/80 in order to demonstrate improved tolerance for ADLs and activity. LTG Duration 10 weeks Assessment Summary Assessment Patient able to perform AROM seated hip flexion right LE nearly equal to left LE with reports of decreased, but not eliminated pain end of session . Balance and LE strength continues to be limited impacting functional mobility. Physical Therapy Plan Frequency and Duration Frequency of Treatment 2x/Week Duration of treatment (weeks) 10 Plan of Care Start Date 09/29/23 Plan of Care End Date 12/08/23 Therapeutic Interventions Therapeutic Interventions Balance Training,Coordination Training,Gait Training,Home Exercise Program,Joint Mobilizations,Manual Therapy, Neuromuscular Re-education, Orthotic/Prosthetic Management ,Patient/Caregiver Education, Self-Care/Home Management, Sensory Integration,Soft Tissue Mobilization,Taping, Therapeutic Activities, Therapeutic Exercises Modalities Cold Pack/Ice Massage,Hot Packs Next Visit Focus/Plan Next Note Type Treatment Note Next Visit Plan Cont STM work and hip mobilization if groin pain with hip flexion persists, Balance
--- NOTE | 2023-10-29 16:28 | PT.OTN ---
Current Diagnoses Other chronic pain (10/29/23) Pain in right knee (10/29/23) Pain in left knee (10/29/23) Dorsalgia, unspecified (10/29/23) Physical Therapy Treatment Note PT-OP-A Visit Information Start: 09/29/23 09:02 Freq: Status: Active Protocol: Document 10/29/23 13:47 NM (Rec: 10/29/23 14:32 NM [id number]) Out-Patient Physical Therapy Visit Information Visit Information Visit Type Progress Note Visit Note KX aft Visit Start Time 13:47 Visit Stop Time 14:30 Visit Number 8 Evaluation Information Evaluation Date 09/29/23 PT-OP-B Current Condition Start: 09/29/23 09:02 Freq: Status: Active Protocol: Document 09/29/23 09:02 NM (Rec: 09/29/23 10:30 NM [id number]) Current Condition History of Current Condition Onset Date early 2021 Current Complaints BLE weakness, pain in anterolateral hips History of Current Condition Pt presents to clinic with occasional pain in her lumbar spine, along with B hip and knee pain beginning in early 2021. Pt reports that she used to be sedentary and has lost a lot of weight; however, she is just very weak and has pain with activity. She reports difficulty with ambulation, particularly due to pain in the front of her hips. 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 She developed lymphedema recently and is being treated for that as well. Overall, she reports extensive fatigue with activities, particularly when having to stand or ambulate for greater than 10 minutes; relieved with rest. She also reports knee/hip pain with stairs, particulary during descent. She reports no falls but states that she feels off balance during standing and gait. She used to use a spc for gait for the past 10-11 months, but reports that she has felt stronger in the last 2-3 weeks and hasn't needed the spc (taking the stairs 5- 6x/day at home). Previous meniscus injury to L knee; current injury to L shoulder from lifting an object last week. 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 Treatment Goals Patient/Caregiver Goals Decrease pain, get back to ballroom dancing Current Functional Impairments (Reported) Functional Limitations- ADL's Difficulty with ADLs involving fwd trunk flexion Functional Limitations- Mobility/Gait Unable to walk/stand >10 min due to B hip and knee pain, prn spc use PT-OP-C Subjective Start: 09/29/23 09:02 Freq: Status: Active Protocol: Document 10/29/23 13:47 NM (Rec: 10/29/23 14:32 NM [id number]) OP-PT Subjective Patient Comments Patient Comments Pt reports that she is walking 50% better, can stand better on 1 leg, reports improved balance. Confident walking without a cane but taking one with her when doing long distances. Pt reports that her pain levels have decreased overall since beginning PT. She has no pain today in B hips or knees Patient Reported Progress Improving PT-OP-D Balance Start: 09/29/23 09:02 Freq: Status: Active Protocol: Document 09/29/23 09:02 NM (Rec: 09/29/23 10:30 NM [id number]) OP-PT Balance Assessment Sitting Balance Static Sitting Balance Ability Normal Dynamic Sitting Balance Ability Normal Standing Balance Static Standing Balance Ability Fair Dynamic Standing Balance Ability Fair Balance Tests Romberg Romberg 10 seconds, mild trunk sway, no LOB Single Limb Standing Single Limb- Right 1 second Single Limb- Left 2 seconds Tandem Tandem Standing difficulty with getting into position; maintains <2 sec Espinal Fall Scale Copyright Permission PT-OP-E Functional Tests Start: 09/29/23 09:02 Freq: Status: Active Protocol: Document 09/29/23 09:02 NM (Rec: 09/29/23 10:30 NM [id number]) Functional Tests 30 Second Sit to Stand Test Score 10 reps Comments no pain reported but slow; no UE use Tinetti Balance and Gait Assessment Balance Score 11 Gait Score 7 Composite Score PT-OP-F Manual Assessment Start: 09/29/23 09:02 Freq: Status: Active Protocol: Document 09/29/23 09:02 NM (Rec: 09/29/23 10:30 NM [id number]) Manual Assessments Soft Tissue Assessment Soft Tissue Mobility Assessment Mild soft tissue restrictions of B lumbar paraspinals/QL, but not tender to palpation. Demos B hip flexor tightness, pain with R hip pain Joint Mobility Assessment Joint Mobility Assessment Full L hip PROM. Limited R hip PROM, demos guarding with flexion verena into IR>ER and painful. No instability of B knees noted. No clicking, popping, locking, giving out of B hips or knees. PT-OP-G Mobility & Gait Start: 09/29/23 09:02 Freq: Status: Active Protocol: Document 09/29/23 09:02 NM (Rec: 09/29/23 10:30 NM [id number]) OP Mobility Evaluation Bed Mobility Rolling Difficulty with rolling due to pain. Sits up from supine to EOB then transfers to prone OP Gait Assessment Gait Gait Assistance Required: Independent Distance (Feet) 150 Assistive Devices Assistive Device None Gait Deviations General Gait Pattern Antalgic,Flexed Trunk Factors Limiting Gait Function Factors Limiting Gait Function Decreased Activity Tolerance, Decreased Strength,Limited Range of Motion,Pain,Poor Balance Comments Gait Comments Antalgic gait pattern with fwd flexed trunk posture, mild- mod trunk sway. Lateral trunk deviation PT-OP-H Neuro Start: 09/29/23 09:02 Freq: Status: Active Protocol: Document 09/29/23 09:02 NM (Rec: 09/29/23 10:30 NM [id number]) Sensation Evaluation Gross Sensation Gross Sensation WNL Comments Summary Comments BLE intact to light touch sensation equally despite reported numbness in L 2nd and 3rd toes Deep Tendon Reflex & Clonus Assessment Deep Tendon Reflex Bilateral Patellar Deep Tendon Reflex 1+ Diminished PT-OP-J Posture/Palpation/Skin Start: 09/29/23 09:02 Freq: Status: Active Protocol: Document 09/29/23 09:02 NM (Rec: 09/29/23 10:30 NM [id number]) Posture Evaluation Position Standing Evaluation View posterior, lateral Head/C-Spine Posture Forward Head L-Spine Posture Increased Lordosis Shoulder Posture (L) Forward,(R) Forward,(L) Elevated Scapula Posture (L) Protracted,(R) Protracted Arm Posture (L) Internally Rotated,(R) Internally Rotated Pelvis Posture Anteriorly Tilted,(L) Iliac Crest Superior Weight Distribution Weight Shifted Right Knee Posture (L) Genu Varus,(R) Genu Varus Patellar Posture (L) Superior,(R) Superior Palpation Assessment Location Lumbar spine Palpation Location L4-S1, SI joints, Palpation Findings Tenderness Palpation Details Tender to palpation along spinous processes of L4-S1, L4 is most tender. B hips Palpation Location greater trochanter, gluteals Palpation Findings Soft Tissue Tightness,Spasm, Muscle Guarding,Tenderness Palpation Details Tenderness to B greater trochanters (L>R), worse with internal/external rotation. Muscle guarding and tenderness of B gluteals, L>R. PT-OP-K Range of Motion Start: 09/29/23 09:02 Freq: Status: Active Protocol: Document 10/29/23 13:47 NM (Rec: 10/29/23 14:32 NM [id number]) Hip Goniometric Range of Motion Hip Right Flexion w/Knee Flexed 90 Internal Rotation 20 External Rotation 20 Comments Passive hip flexion 110 deg. Hip/greater trochanter pain with internal rotation 10/29/23: 30 deg ER, 25 deg IR, hip flexion 108 deg; no pain with any motion Left Flexion w/Knee Flexed 115 Internal Rotation 25 External Rotation 30 Comments Passive hip flexion 110 deg. Hip/greater trochanter pain with internal rotation. 10/29/23: 115 deg hip flexion active, hip IR 25 deg, hip ER 30 deg; no pain PT-OP-L Special Tests Start: 09/29/23 09:02 Freq: Status: Active Protocol: Document 09/29/23 09:02 NM (Rec: 09/29/23 10:30 NM [id number]) Special Tests Lumbar Spine Special Tests Straight Leg Raise Test Results negative Comments does not reproduce local or referred pain Michael/Quadrant Test Results negative Comments does not reproduce local or referred pain Hip Special Tests Scour Test Test Results negative bilaterally Anterior Labral Test Test Results negative bilaterally FADIR Test Results positive bilaterally (L>R) Comments Reproduces pain along B greater trochanter and posterior glutes. Moderate muscle guarding verena with L. Minimal pain reported in anterior hip/groin PT-OP-M Strength Start: 09/29/23 09:02 Freq: Status: Active Protocol: Document 10/29/23 13:47 NM (Rec: 10/29/23 14:32 NM [id number]) Hip Strength Hip Manual Muscle Testing Right Flexion (L2) 3+ Fair+ Extension (S1) 3+ Fair+ Abduction 3+ Fair+ Adduction 3+ Fair+ External Rotation 3+ Fair+ Internal Rotation 3+ Fair+ Comments Pain with resisted IR > flexion 10/29/23: 4/5, no pain with resisted motion Left Flexion (L2) 4- Good- Extension (S1) 4- Good- Abduction 4- Good- Adduction 4- Good- External Rotation 4- Good- Internal Rotation 3+ Fair+ Comments Pain with resisted IR 10/29/23: 4/5, no pain with resisted motion PT-OP-Q Treatments Start: 09/29/23 09:02 Freq: Status: Active Protocol: Document 10/29/23 13:47 NM (Rec: 10/29/23 14:32 NM [id number]) Therapeutic Exercises Supine Exercises knee to chest stretch Supine Exercise Name knee to chest with towel roll at groin Side right Reps/Minutes 2X Comments towel roll for gapping Sitting Exercises piriformis stretch Sitting Exercise Name piriformis stretch Side bilateral Reps/Minutes 1x60 Comments verbal and tactile cues hip abduction Sitting Exercise Name seated hip abduction with band Side bilateral Resistance light green band Reps/Minutes 2x10 Comments verbal cues to perform slowly Standing Exercises bilateral heel raise Standing Exercise Name B HR Side bilateral Reps/Minutes 2x10 Comments cued slower motion to limit momentum Side steps Standing Exercise Name 30 sec STS Reps/Minutes 17 Comments improved form, control; monitored for pain, none reported Gait Training Gait Activity Normal Gait Device Used spc prn Level of Assistance SPV>IND Surface stable: carpet, tile Distance/Duration 600 ft (8 min total) Treatment Focus meet goal, gait distance, normal gait mechanics Comments Pt ambulating to meet distance goal carrying spc for use prn . Pt did not have to use spc. Compared to IE, pt demos improved trunk stability with less lateral excursion, less antalgic gait. Feet are closer together without crossing. Neuro Re-Education Treatment Balance Activities NBOS Surface foam Equipment // bars Reps/Duration 2x30 ea Comments 1. eyes open for stance time - close SBA 2. eyes closed - CGA with 1 instance min A to prevent LOB; increased trunk sway on foam, difficulty with centering weight. Cued for weight shift to center ankle over foot Tinetti Surface stable Equipment // bar, gait belt for safety Reps/Duration 15/16 balance score Comments 1. eyes closed, stable floor x30 seconds 2. Turning in [place] bilaterally, 1 rep ea; no LOB, IND 3. Nudge: begins to fall but catches self without use of UE (uses stepping strategy) step up Details CGA to steady with few instances of min A to correct Surface foam surface Equipment // bars - hands hovering above Reps/Duration 2x10 ea Comments 1. fwd step ups, LLE more difficult than RLE 2. lateral step ups, more difficult than fwd; LLE more difficult than RLE cued for foot position, stabilize on foam prior to stepping off; cued for weight shift over middle of foot; cued also for slower motion for control SLS Surface stable Equipment 2 finger support Reps/Duration 2x30 ea Comments Close SBA For time, performed bilaterally. Cued to not rest non-stance LE on other stance LE. Difficult tandem stepping Details hands above parallel bars Comments 1. close supervision, vc for heel toe pattern; 1 x 10 ft 2. tandem stance on stable surface; difficulty with achieving position without UE support (tends to use 1 Ue), 2x30 (able to maintain once in position) with close SBA marching in place Details hands above parallel bars Reps/Duration 2x10 ea Comments 1. close supervision with marching on stable ground, hands above //bars 2. on foam surface, 2x10 ea with 1 finger support from ea hand, CGA to steady Other Activities glute med activation Details seated hip abd with blue band Reps/Duration 1 one minute x1 rep Comments Patient ed to perform prior to activities that require increased balance. Self-Care/Home Management Treatment Education Patient Education Home Exercise Program,Safety Other Education 4 minutes: reviewed HEP, educated on safety during daily walks using/bringing spc . HEP: single leg stance starting with UE support and gradually lessening, standing with tandem next to coutner top for prn UE support but to attempt achieving position without UE support PT-OP-T Assessment and Plan Start: 09/29/23 09:02 Freq: Status: Active Protocol: Document 10/29/23 13:47 NM (Rec: 10/29/23 14:32 NM [id number]) Physical Therapy Assessment Goals Seven Impairment balance Impairment Tinetti Short Term Goal (STG) Pt will improve Tinetti score to at least 20/28 in order to demonstate decrease fall risk and improved balance 10/29/23: STG Duration 5 weeks Detention Goal (LTG) Pt will improve Tinetti score to at least 24/28 in order to demonstate decrease fall risk and improved balance 10/29/23: , stumbles with nudging but able to catch self (gait 08/24, balance) LTG Duration 10 weeks MET Six Impairment balance Impairment tandem stance <2 seconds, difficulty getting into position Short Term Goal (STG) Pt will be able to position without assistance in tandem stance without LOB in order to demonstrate improved balance required for gait, recreational dancing 10/29/23: With cueing, pt able to achieve tandem independently but tends to use 1 hand to assist with balance , can maintain 30 sec ea without support STG Duration 5 weeks PROGRESSING Casting Molder Goal (LTG) Pt will be able to stand at least 15 seconds in tandem stance without LOB in order to demonstrate improved balance required for gait LTG Duration 10 weeks Five Impairment gait Impairment Pt reports unable to ambulate more than 10 minutes before a seated rest break due to pain Short Term Goal (STG) Pt will be able to ambulate using LRAD or no AD for community distances (at least 600 ft) in order to demonstrate improved BLE strength, pain management, and activity tolerance 10/29/23: met w/o spc (carried) 600 ft, IND STG Duration 5 weeks MET Casting Molder Goal (LTG) Pt will report that she can ambulate using LRAD or no AD for at least 20 minutes in order to demonstrate improved BLE strength, pain management, and activity tolerance 10/29/23: Pt reports that she is able to ambulate with spc or without spc at grocery store for >20 minutes without pain or difficultt LTG Duration 10 weeks MET Four Impairment strength Impairment R hip strength 3+/5 MMT Short Term Goal (STG) Pt will improve R hip global hip strength to at least 4/5 in order to demonstrate improved hip strength needed for gait, balance, and stairs 10/29/23: 4/5 MMT for all, no pain with resisted motion STG Duration 5 weeks MET Casting Molder Goal (LTG) Pt will improve R hip global hip strength to at least 4+/5 in order to demonstrate improved hip strength needed for gait, balance, and stairs LTG Duration 10 weeks Three Impairment strength Impairment L hip strength 4-/5 except IR 3+/5 MMT Short Term Goal (STG) Pt will improve L global hip strength to at least 4/5 in order to demonstrate improved hip strength needed for gait, balance, and stairs 10/29/23: 4/5 MMT for all, no pain with resisted motion STG Duration 5 weeks MET Casting Molder Goal (LTG) Pt will improve L global hip strength to at least 4+/5 in order to demonstrate improved hip strength needed for gait, balance, and stairs LTG Duration 10 weeks Two Impairment strength Impairment 30 second STS = 10 Casting Molder Goal (LTG) Pt will be able to perform at least 15 sit to stands within 30 seconds without compensation or pain in order to demonstrate improved BLE strength and tolerance for activity. 10/29/23: 17 STS in 30 seconds LTG Duration 10 weeks MET One Impairment function Impairment LEFS 32/80 Detention Goal (LTG) Pt will increase LEFS score to greater than 50/80 in order to demonstrate improved tolerance for ADLs and activity. LTG Duration 10 weeks Progress Towards Goals Progress Towards Goals Progressing Toward Goals,Goals Met Progress Comments Met 3 goals, progressing toward remaining goals Assessment Summary Assessment Pt tolerated session well. Session focus on pt balance, BLE strengthening, and endurance. Pt continues to have difficulty with activities in narrow MANNIE, which is greater challenged when placed on an unstable surface or when pt not allowed to rely on her eyes. Initiated forward and lateral step ups on foam pad; pt has most difficulty with stepping and maintaining balance with LLE compared to RLE. PT cued pt consistently for weight shift when on foam to center MANNIE and pt requires several instances of min A due to LOB. During gait training, pt demos less trunk sway and gait is not antalgic. She reports significant improvement in gait distance with prn use of spc. Pt has been seen x7 visits since September 2023 for B hip and knee pain. She is progressing well toward her goals, meeting 3. Pt demonstrates improvements in balance and gait endurance. She also reports significant improvements in her pain levels since beginning PT. She occasionally still has pain with active L hip flexion. She continues to have concerns about her balance. Pt is able to perform several sit to stands from lower surface without difficulty; she is progressing with hip and quad strengthening. Pt would benefit further from balance and progressing BLE strengthening for improved activity tolerance and to decrease fall risk. Physical Therapy Plan Frequency and Duration Frequency of Treatment 2x/Week Duration of treatment (weeks) 10 Plan of Care Start Date 09/29/23 Plan of Care End Date 12/08/23 Therapeutic Interventions Therapeutic Interventions Balance Training,Coordination Training,Gait Training,Home Exercise Program,Joint Mobilizations,Manual Therapy, Neuromuscular Re-education, Orthotic/Prosthetic Management ,Patient/Caregiver Education, Self-Care/Home Management, Sensory Integration,Soft Tissue Mobilization,Taping, Therapeutic Activities, Therapeutic Exercises Modalities Cold Pack/Ice Massage,Hot Packs Next Visit Focus/Plan Next Note Type Treatment Note Next Visit Plan Cont STM work and hip mobilization if groin pain with hip flexion persists, Balance Progress BLE strengthening: lateral step ups, touch downs, step ups 8, LAQ, leg press
--- NOTE | 2023-11-01 14:00 | PT.OTN ---
Current Diagnoses Other chronic pain (11/01/23) Pain in right knee (11/01/23) Pain in left knee (11/01/23) Dorsalgia, unspecified (11/01/23) Physical Therapy Treatment Note PT-OP-A Visit Information Start: 09/29/23 09:02 Freq: Status: Active Protocol: Document 11/01/23 11:12 AB (Rec: 11/01/23 14:00 AB [id number]) Out-Patient Physical Therapy Visit Information Visit Information Visit Note KX after th visit Access code [email or web address] [facility] Visit Start Time 13:02 Visit Stop Time 13:43 Visit Number 9 Number of [employer] ADMINISTRATOR Visits 1 Evaluation Information Evaluation Date 09/29/23 Precautions Precautions Fall risk PT-OP-B Current Condition Start: 09/29/23 09:02 Freq: Status: Active Protocol: Document 09/29/23 09:02 NM (Rec: 09/29/23 10:30 NM [id number]) Current Condition History of Current Condition Onset Date early 2021 Current Complaints BLE weakness, pain in anterolateral hips History of Current Condition Pt presents to clinic with occasional pain in her lumbar spine, along with B hip and knee pain beginning in early 2021. Pt reports that she used to be sedentary and has lost a lot of weight; however, she is just very weak and has pain with activity. She reports difficulty with ambulation, particularly due to pain in the front of her hips. 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 She developed lymphedema recently and is being treated for that as well. Overall, she reports extensive fatigue with activities, particularly when having to stand or ambulate for greater than 10 minutes; relieved with rest. She also reports knee/hip pain with stairs, particulary during descent. She reports no falls but states that she feels off balance during standing and gait. She used to use a spc for gait for the past 10-11 months, but reports that she has felt stronger in the last 2-3 weeks and hasn't needed the spc (taking the stairs 5- 6x/day at home). Previous meniscus injury to L knee; current injury to L shoulder from lifting an object last week. 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 Treatment Goals Patient/Caregiver Goals Decrease pain, get back to ballroom dancing Current Functional Impairments (Reported) Functional Limitations- ADL's Difficulty with ADLs involving fwd trunk flexion Functional Limitations- Mobility/Gait Unable to walk/stand >10 min due to B hip and knee pain, prn spc use PT-OP-C Subjective Start: 09/29/23 09:02 Freq: Status: Active Protocol: Document 11/01/23 11:12 AB (Rec: 11/01/23 14:00 AB [id number]) OP-PT Subjective Patient Comments Patient Comments Patient reports she danced Wednesday, things are coming along well. Patient reports she does not have any hip pain , some right groin pain, reports knee feel stiff. Pt comments she is going to [employer] post this session. PT-OP-D Balance Start: 09/29/23 09:02 Freq: Status: Active Protocol: Document 09/29/23 09:02 NM (Rec: 09/29/23 10:30 NM [id number]) OP-PT Balance Assessment Sitting Balance Static Sitting Balance Ability Normal Dynamic Sitting Balance Ability Normal Standing Balance Static Standing Balance Ability Fair Dynamic Standing Balance Ability Fair Balance Tests Romberg Romberg 10 seconds, mild trunk sway, no LOB Single Limb Standing Single Limb- Right 1 second Single Limb- Left 2 seconds Tandem Tandem Standing difficulty with getting into position; maintains <2 sec Espinal Fall Scale Copyright Permission PT-OP-E Functional Tests Start: 09/29/23 09:02 Freq: Status: Active Protocol: Document 09/29/23 09:02 NM (Rec: 09/29/23 10:30 NM [id number]) Functional Tests 30 Second Sit to Stand Test Score 10 reps Comments no pain reported but slow; no UE use Tinetti Balance and Gait Assessment Balance Score 11 Gait Score 7 Composite Score PT-OP-F Manual Assessment Start: 09/29/23 09:02 Freq: Status: Active Protocol: Document 09/29/23 09:02 NM (Rec: 09/29/23 10:30 NM [id number]) Manual Assessments Soft Tissue Assessment Soft Tissue Mobility Assessment Mild soft tissue restrictions of B lumbar paraspinals/QL, but not tender to palpation. Demos B hip flexor tightness, pain with R hip pain Joint Mobility Assessment Joint Mobility Assessment Full L hip PROM. Limited R hip PROM, demos guarding with flexion verena into IR>ER and painful. No instability of B knees noted. No clicking, popping, locking, giving out of B hips or knees. PT-OP-G Mobility & Gait Start: 09/29/23 09:02 Freq: Status: Active Protocol: Document 09/29/23 09:02 NM (Rec: 09/29/23 10:30 NM [id number]) OP Mobility Evaluation Bed Mobility Rolling Difficulty with rolling due to pain. Sits up from supine to EOB then transfers to prone OP Gait Assessment Gait Gait Assistance Required: Independent Distance (Feet) 150 Assistive Devices Assistive Device None Gait Deviations General Gait Pattern Antalgic,Flexed Trunk Factors Limiting Gait Function Factors Limiting Gait Function Decreased Activity Tolerance, Decreased Strength,Limited Range of Motion,Pain,Poor Balance Comments Gait Comments Antalgic gait pattern with fwd flexed trunk posture, mild- mod trunk sway. Lateral trunk deviation PT-OP-H Neuro Start: 09/29/23 09:02 Freq: Status: Active Protocol: Document 09/29/23 09:02 NM (Rec: 09/29/23 10:30 NM [id number]) Sensation Evaluation Gross Sensation Gross Sensation WNL Comments Summary Comments BLE intact to light touch sensation equally despite reported numbness in L 2nd and 3rd toes Deep Tendon Reflex & Clonus Assessment Deep Tendon Reflex Bilateral Patellar Deep Tendon Reflex 1+ Diminished PT-OP-J Posture/Palpation/Skin Start: 09/29/23 09:02 Freq: Status: Active Protocol: Document 09/29/23 09:02 NM (Rec: 09/29/23 10:30 NM [id number]) Posture Evaluation Position Standing Evaluation View posterior, lateral Head/C-Spine Posture Forward Head L-Spine Posture Increased Lordosis Shoulder Posture (L) Forward,(R) Forward,(L) Elevated Scapula Posture (L) Protracted,(R) Protracted Arm Posture (L) Internally Rotated,(R) Internally Rotated Pelvis Posture Anteriorly Tilted,(L) Iliac Crest Superior Weight Distribution Weight Shifted Right Knee Posture (L) Genu Varus,(R) Genu Varus Patellar Posture (L) Superior,(R) Superior Palpation Assessment Location Lumbar spine Palpation Location L4-S1, SI joints, Palpation Findings Tenderness Palpation Details Tender to palpation along spinous processes of L4-S1, L4 is most tender. B hips Palpation Location greater trochanter, gluteals Palpation Findings Soft Tissue Tightness,Spasm, Muscle Guarding,Tenderness Palpation Details Tenderness to B greater trochanters (L>R), worse with internal/external rotation. Muscle guarding and tenderness of B gluteals, L>R. PT-OP-K Range of Motion Start: 09/29/23 09:02 Freq: Status: Active Protocol: Document 10/29/23 13:47 NM (Rec: 10/29/23 14:32 NM [id number]) Hip Goniometric Range of Motion Hip Right Flexion w/Knee Flexed 90 Internal Rotation 20 External Rotation 20 Comments Passive hip flexion 110 deg. Hip/greater trochanter pain with internal rotation 10/29/23: 30 deg ER, 25 deg IR, hip flexion 108 deg; no pain with any motion Left Flexion w/Knee Flexed 115 Internal Rotation 25 External Rotation 30 Comments Passive hip flexion 110 deg. Hip/greater trochanter pain with internal rotation. 10/29/23: 115 deg hip flexion active, hip IR 25 deg, hip ER 30 deg; no pain PT-OP-L Special Tests Start: 09/29/23 09:02 Freq: Status: Active Protocol: Document 09/29/23 09:02 NM (Rec: 09/29/23 10:30 NM [id number]) Special Tests Lumbar Spine Special Tests Straight Leg Raise Test Results negative Comments does not reproduce local or referred pain Michael/Quadrant Test Results negative Comments does not reproduce local or referred pain Hip Special Tests Scour Test Test Results negative bilaterally Anterior Labral Test Test Results negative bilaterally FADIR Test Results positive bilaterally (L>R) Comments Reproduces pain along B greater trochanter and posterior glutes. Moderate muscle guarding verena with L. Minimal pain reported in anterior hip/groin PT-OP-M Strength Start: 09/29/23 09:02 Freq: Status: Active Protocol: Document 10/29/23 13:47 NM (Rec: 10/29/23 14:32 NM [id number]) Hip Strength Hip Manual Muscle Testing Right Flexion (L2) 3+ Fair+ Extension (S1) 3+ Fair+ Abduction 3+ Fair+ Adduction 3+ Fair+ External Rotation 3+ Fair+ Internal Rotation 3+ Fair+ Comments Pain with resisted IR > flexion 10/29/23: 4/5, no pain with resisted motion Left Flexion (L2) 4- Good- Extension (S1) 4- Good- Abduction 4- Good- Adduction 4- Good- External Rotation 4- Good- Internal Rotation 3+ Fair+ Comments Pain with resisted IR 10/29/23: 4/5, no pain with resisted motion PT-OP-Q Treatments Start: 09/29/23 09:02 Freq: Status: Active Protocol: Document 11/01/23 11:12 AB (Rec: 11/01/23 14:00 AB [id number]) Gym Equipment Shuttle Recovery leg press bilateral Details bilateral, VC to avoid hyper extension Resistance one drk blue one teal Reps/Time 15 X3 Therapeutic Exercises Supine Exercises Luther stretch Supine Exercise Name edge of bed Side bilateral Equipment Used hooklying with LE of mat Reps/Minutes X2 each LE with AROM knee flexion during stretch Sitting Exercises tail gait Sitting Exercise Name AROM knee extension/flexion swinging Side bilateral Reps/Minutes one min Comments to decrease knee discomfort LAQ Sitting Exercise Name LAQ with and without band Side bilateral Resistance level one light blue Reps/Minutes X3X2 then X 10 Comments blue band and w/o band not carina prior to hip flexor stretch with knee flexio Manual Therapy Treatment Soft Tissue Mobilization right hip flexor Body Location at groin Mobilization Type Cross-Friction,Rolling Intensity/Depth Moderate Body Position Hooklying Comments monitored for pain Joint Mobilizations LAD Joint right hip long axis distraction Grade IV Body Position Hooklying Reps/Duration 2 min Comments monitored for pain right hip joint mobilizations Joint right hip Direction AP grade IV lat grade II Body Position Hooklying Reps/Duration X5 X 2 Comments Monitored for pain Neuro Re-Education Treatment Other Activities glute med activation Details seated hip abd with blue band Reps/Duration 1 one minute x1 rep Comments Patient ed to perform prior to activities that require increased balance. Self-Care/Home Management Treatment Activities Self-Care/Home Management Activities LAQ and AROM knee flexion during Luther stretch added to HEP PT-OP-T Assessment and Plan Start: 09/29/23 09:02 Freq: Status: Active Protocol: Document 11/01/23 11:12 AB (Rec: 11/01/23 14:00 AB [id number]) Physical Therapy Assessment Goals Seven Impairment balance Impairment Tinetti 18/28 Short Term Goal (STG) Pt will improve Tinetti score to at least 20/28 in order to demonstate decrease fall risk and improved balance 10/29/23: 2728 STG Duration 5 weeks Licensed Electrician Goal (LTG) Pt will improve Tinetti score to at least 24/28 in order to demonstate decrease fall risk and improved balance 10/29/23: 27/28, stumbles with nudging but able to catch self (gait 08/24, balance) LTG Duration 10 weeks MET Six Impairment balance Impairment tandem stance <2 seconds, difficulty getting into position Short Term Goal (STG) Pt will be able to position without assistance in tandem stance without LOB in order to demonstrate improved balance required for gait, recreational dancing 10/29/23: With cueing, pt able to achieve tandem independently but tends to use 1 hand to assist with balance , can maintain 30 sec ea without support STG Duration 5 weeks PROGRESSING Senior Care Goal (LTG) Pt will be able to stand at least 15 seconds in tandem stance without LOB in order to demonstrate improved balance required for gait LTG Duration 10 weeks Five Impairment gait Impairment Pt reports unable to ambulate more than 10 minutes before a seated rest break due to pain Short Term Goal (STG) Pt will be able to ambulate using LRAD or no AD for community distances (at least 600 ft) in order to demonstrate improved BLE strength, pain management, and activity tolerance 10/29/23: met w/o spc (carried) 600 ft, IND STG Duration 5 weeks MET Senior Care Goal (LTG) Pt will report that she can ambulate using LRAD or no AD for at least 20 minutes in order to demonstrate improved BLE strength, pain management, and activity tolerance 10/29/23: Pt reports that she is able to ambulate with spc or without spc at grocery store for >20 minutes without pain or difficultt LTG Duration 10 weeks MET Four Impairment strength Impairment R hip strength 3+/5 MMT Short Term Goal (STG) Pt will improve R hip global hip strength to at least 4/5 in order to demonstrate improved hip strength needed for gait, balance, and stairs 10/29/23: 4/5 MMT for all, no pain with resisted motion STG Duration 5 weeks MET Licensed Electrician Goal (LTG) Pt will improve R hip global hip strength to at least 4+/5 in order to demonstrate improved hip strength needed for gait, balance, and stairs LTG Duration 10 weeks Three Impairment strength Impairment L hip strength 4-/5 except IR 3+/5 MMT Short Term Goal (STG) Pt will improve L global hip strength to at least 4/5 in order to demonstrate improved hip strength needed for gait, balance, and stairs 10/29/23: 4/5 MMT for all, no pain with resisted motion STG Duration 5 weeks MET Senior Care Goal (LTG) Pt will improve L global hip strength to at least 4+/5 in order to demonstrate improved hip strength needed for gait, balance, and stairs LTG Duration 10 weeks Two Impairment strength Impairment 30 second STS = 10 Senior Care Goal (LTG) Pt will be able to perform at least 15 sit to stands within 30 seconds without compensation or pain in order to demonstrate improved BLE strength and tolerance for activity. 10/29/23: 17 STS in 30 seconds LTG Duration 10 weeks MET One Impairment function Impairment LEFS 32/80 Licensed Electrician Goal (LTG) Pt will increase LEFS score to greater than 50/80 in order to demonstrate improved tolerance for ADLs and activity. LTG Duration 10 weeks Assessment Summary Assessment Bambi tolerated session well, reported groin pain with LAQ eliminated when performed post hip flexor stretch with AROM knee flexion. Physical Therapy Plan Frequency and Duration Frequency of Treatment 2x/Week Duration of treatment (weeks) 10 Plan of Care Start Date 09/29/23 Plan of Care End Date 12/08/23 Next Visit Focus/Plan Next Note Type Treatment Note Next Visit Plan Cont STM work and hip mobilization if groin pain with hip flexion persists, Balance Progress BLE strengthening: lateral step ups, touch downs, step ups 8, LAQ, leg press/ Step up focus next session, possibly band with LAQ
--- NOTE | 2023-11-05 14:11 | PT.OTN ---
Current Diagnoses Other chronic pain (11/05/23) Pain in right knee (11/05/23) Pain in left knee (11/05/23) Dorsalgia, unspecified (11/05/23) Physical Therapy Treatment Note PT-OP-A Visit Information Start: 09/29/23 09:02 Freq: Status: Active Protocol: Document 11/05/23 13:03 AB (Rec: 11/05/23 14:11 AB [id number]) Out-Patient Physical Therapy Visit Information Visit Information Visit Note KX after 19th visit Access code [email or web address] [facility] Visit Start Time 13:03 Visit Stop Time 13:47 Visit Number 10 Number of LOCAL [place] [employer] Visits 2 Evaluation Information Evaluation Date 09/29/23 Precautions Precautions Fall risk PT-OP-B Current Condition Start: 09/29/23 09:02 Freq: Status: Active Protocol: Document 09/29/23 09:02 NM (Rec: 09/29/23 10:30 NM [id number]) Current Condition History of Current Condition Onset Date early 2021 Current Complaints BLE weakness, pain in anterolateral hips History of Current Condition Pt presents to clinic with occasional pain in her lumbar spine, along with B hip and knee pain beginning in early 2021. Pt reports that she used to be sedentary and has lost a lot of weight; however, she is just very weak and has pain with activity. She reports difficulty with ambulation, particularly due to pain in the front of her hips. 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 She developed lymphedema recently and is being treated for that as well. Overall, she reports extensive fatigue with activities, particularly when having to stand or ambulate for greater than 10 minutes; relieved with rest. She also reports knee/hip pain with stairs, particulary during descent. She reports no falls but states that she feels off balance during standing and gait. She used to use a spc for gait for the past 10-11 months, but reports that she has felt stronger in the last 2-3 weeks and hasn't needed the spc (taking the stairs 5- 6x/day at home). Previous meniscus injury to L knee; current injury to L shoulder from lifting an object last week. 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 Treatment Goals Patient/Caregiver Goals Decrease pain, get back to ballroom dancing Current Functional Impairments (Reported) Functional Limitations- ADL's Difficulty with ADLs involving fwd trunk flexion Functional Limitations- Mobility/Gait Unable to walk/stand >10 min due to B hip and knee pain, prn spc use PT-OP-C Subjective Start: 09/29/23 09:02 Freq: Status: Active Protocol: Document 11/05/23 13:03 AB (Rec: 11/05/23 14:11 AB [id number]) OP-PT Subjective Patient Comments Patient Comments Patient reports doing therapy the same day as exercise was too much. Patient reports she was sore the next day, resumed 1/2 of the exercises yesterday. Reports a little pain with right SLR start of this session. Reports bilateral lower LE's was painful to touch prior to PT and are no longer painful to touch. PT-OP-D Balance Start: 09/29/23 09:02 Freq: Status: Active Protocol: Document 09/29/23 09:02 NM (Rec: 09/29/23 10:30 NM [id number]) OP-PT Balance Assessment Sitting Balance Static Sitting Balance Ability Normal Dynamic Sitting Balance Ability Normal Standing Balance Static Standing Balance Ability Fair Dynamic Standing Balance Ability Fair Balance Tests Romberg Romberg 10 seconds, mild trunk sway, no LOB Single Limb Standing Single Limb- Right 1 second Single Limb- Left 2 seconds Tandem Tandem Standing difficulty with getting into position; maintains <2 sec Espinal Fall Scale Copyright Permission PT-OP-E Functional Tests Start: 09/29/23 09:02 Freq: Status: Active Protocol: Document 09/29/23 09:02 NM (Rec: 09/29/23 10:30 NM [id number]) Functional Tests 30 Second Sit to Stand Test Score 10 reps Comments no pain reported but slow; no UE use Tinetti Balance and Gait Assessment Balance Score 11 Gait Score 7 Composite Score PT-OP-F Manual Assessment Start: 09/29/23 09:02 Freq: Status: Active Protocol: Document 09/29/23 09:02 NM (Rec: 09/29/23 10:30 NM [id number]) Manual Assessments Soft Tissue Assessment Soft Tissue Mobility Assessment Mild soft tissue restrictions of B lumbar paraspinals/QL, but not tender to palpation. Demos B hip flexor tightness, pain with R hip pain Joint Mobility Assessment Joint Mobility Assessment Full L hip PROM. Limited R hip PROM, demos guarding with flexion verena into IR>ER and painful. No instability of B knees noted. No clicking, popping, locking, giving out of B hips or knees. PT-OP-G Mobility & Gait Start: 09/29/23 09:02 Freq: Status: Active Protocol: Document 09/29/23 09:02 NM (Rec: 09/29/23 10:30 NM [id number]) OP Mobility Evaluation Bed Mobility Rolling Difficulty with rolling due to pain. Sits up from supine to EOB then transfers to prone OP Gait Assessment Gait Gait Assistance Required: Independent Distance (Feet) 150 Assistive Devices Assistive Device None Gait Deviations General Gait Pattern Antalgic,Flexed Trunk Factors Limiting Gait Function Factors Limiting Gait Function Decreased Activity Tolerance, Decreased Strength,Limited Range of Motion,Pain,Poor Balance Comments Gait Comments Antalgic gait pattern with fwd flexed trunk posture, mild- mod trunk sway. Lateral trunk deviation PT-OP-H Neuro Start: 09/29/23 09:02 Freq: Status: Active Protocol: Document 09/29/23 09:02 NM (Rec: 09/29/23 10:30 NM [id number]) Sensation Evaluation Gross Sensation Gross Sensation WNL Comments Summary Comments BLE intact to light touch sensation equally despite reported numbness in L 2nd and 3rd toes Deep Tendon Reflex & Clonus Assessment Deep Tendon Reflex Bilateral Patellar Deep Tendon Reflex 1+ Diminished PT-OP-J Posture/Palpation/Skin Start: 09/29/23 09:02 Freq: Status: Active Protocol: Document 09/29/23 09:02 NM (Rec: 09/29/23 10:30 NM [id number]) Posture Evaluation Position Standing Evaluation View posterior, lateral Head/C-Spine Posture Forward Head L-Spine Posture Increased Lordosis Shoulder Posture (L) Forward,(R) Forward,(L) Elevated Scapula Posture (L) Protracted,(R) Protracted Arm Posture (L) Internally Rotated,(R) Internally Rotated Pelvis Posture Anteriorly Tilted,(L) Iliac Crest Superior Weight Distribution Weight Shifted Right Knee Posture (L) Genu Varus,(R) Genu Varus Patellar Posture (L) Superior,(R) Superior Palpation Assessment Location Lumbar spine Palpation Location L4-S1, SI joints, Palpation Findings Tenderness Palpation Details Tender to palpation along spinous processes of L4-S1, L4 is most tender. B hips Palpation Location greater trochanter, gluteals Palpation Findings Soft Tissue Tightness,Spasm, Muscle Guarding,Tenderness Palpation Details Tenderness to B greater trochanters (L>R), worse with internal/external rotation. Muscle guarding and tenderness of B gluteals, L>R. PT-OP-K Range of Motion Start: 09/29/23 09:02 Freq: Status: Active Protocol: Document 10/29/23 13:47 NM (Rec: 10/29/23 14:32 NM [id number]) Hip Goniometric Range of Motion Hip Right Flexion w/Knee Flexed 90 Internal Rotation 20 External Rotation 20 Comments Passive hip flexion 110 deg. Hip/greater trochanter pain with internal rotation 10/29/23: 30 deg ER, 25 deg IR, hip flexion 108 deg; no pain with any motion Left Flexion w/Knee Flexed 115 Internal Rotation 25 External Rotation 30 Comments Passive hip flexion 110 deg. Hip/greater trochanter pain with internal rotation. 10/29/23: 115 deg hip flexion active, hip IR 25 deg, hip ER 30 deg; no pain PT-OP-L Special Tests Start: 09/29/23 09:02 Freq: Status: Active Protocol: Document 09/29/23 09:02 NM (Rec: 09/29/23 10:30 NM [id number]) Special Tests Lumbar Spine Special Tests Straight Leg Raise Test Results negative Comments does not reproduce local or referred pain Michael/Quadrant Test Results negative Comments does not reproduce local or referred pain Hip Special Tests Scour Test Test Results negative bilaterally Anterior Labral Test Test Results negative bilaterally FADIR Test Results positive bilaterally (L>R) Comments Reproduces pain along B greater trochanter and posterior glutes. Moderate muscle guarding verena with L. Minimal pain reported in anterior hip/groin PT-OP-M Strength Start: 09/29/23 09:02 Freq: Status: Active Protocol: Document 10/29/23 13:47 NM (Rec: 10/29/23 14:32 NM [id number]) Hip Strength Hip Manual Muscle Testing Right Flexion (L2) 3+ Fair+ Extension (S1) 3+ Fair+ Abduction 3+ Fair+ Adduction 3+ Fair+ External Rotation 3+ Fair+ Internal Rotation 3+ Fair+ Comments Pain with resisted IR > flexion 10/29/23: 4/5, no pain with resisted motion Left Flexion (L2) 4- Good- Extension (S1) 4- Good- Abduction 4- Good- Adduction 4- Good- External Rotation 4- Good- Internal Rotation 3+ Fair+ Comments Pain with resisted IR 10/29/23: 4/5, no pain with resisted motion PT-OP-Q Treatments Start: 09/29/23 09:02 Freq: Status: Active Protocol: Document 11/05/23 13:03 AB (Rec: 11/05/23 14:11 AB [id number]) Therapeutic Exercises Supine Exercises piriformis stretch Side bilateral Reps/Minutes 60 seconds X 2 each LE Comments Verbal and tactile cues Sitting Exercises LAQ Sitting Exercise Name LAQ with band Side bilateral Resistance level 2 band Reps/Minutes X10 each LE Comments reports medium difficulty Standing Exercises step ups Standing Exercise Name 8 and 6 inch step ( step up step back) Side bilateral Reps/Minutes 8 inch X10 left X 2 right LE, 6 inch X 10 left and right LE Comments monitored for pain Side steps Standing Exercise Name side step with band Side bilateral Resistance level 2 band Reps/Minutes left and right 8 feet X 4 Comments band above knees, VC to avoid toeing out Manual Therapy Treatment Soft Tissue Mobilization right hip flexor Body Location at groin Mobilization Type Cross-Friction,Rolling Intensity/Depth Moderate Body Position Hooklying Comments monitored for pain L hip Body Location Gluteal piriformis area Mobilization Type Rolling Intensity/Depth Moderate Body Position Sidelying Comments monitored for pain, performed pre stretch into hip IR Joint Mobilizations LAD Joint right hip long axis distraction Grade IV Body Position Hooklying Reps/Duration 2 min Comments monitored for pain right hip joint mobilizations Joint right hip Direction AP grade IV lat grade II Body Position Hooklying Reps/Duration X5 X 2 Comments Monitored for pain PT-OP-T Assessment and Plan Start: 09/29/23 09:02 Freq: Status: Active Protocol: Document 11/05/23 13:03 AB (Rec: 11/05/23 14:11 AB [id number]) Physical Therapy Assessment Goals Seven Impairment balance Impairment Tinetti 18/28 Short Term Goal (STG) Pt will improve Tinetti score to at least 20/28 in order to demonstate decrease fall risk and improved balance 10/29/23: 2728 STG Duration 5 weeks Half-Way Goal (LTG) Pt will improve Tinetti score to at least 24/28 in order to demonstate decrease fall risk and improved balance 10/29/23: , stumbles with nudging but able to catch self (gait 08/24, balance) LTG Duration 10 weeks MET Six Impairment balance Impairment tandem stance <2 seconds, difficulty getting into position Short Term Goal (STG) Pt will be able to position without assistance in tandem stance without LOB in order to demonstrate improved balance required for gait, recreational dancing 10/29/23: With cueing, pt able to achieve tandem independently but tends to use 1 hand to assist with balance , can maintain 30 sec ea without support STG Duration 5 weeks PROGRESSING Electrical Designer Drafter Goal (LTG) Pt will be able to stand at least 15 seconds in tandem stance without LOB in order to demonstrate improved balance required for gait LTG Duration 10 weeks Five Impairment gait Impairment Pt reports unable to ambulate more than 10 minutes before a seated rest break due to pain Short Term Goal (STG) Pt will be able to ambulate using LRAD or no AD for community distances (at least 600 ft) in order to demonstrate improved BLE strength, pain management, and activity tolerance 10/29/23: met w/o spc (carried) 600 ft, IND STG Duration 5 weeks MET Half-Way Goal (LTG) Pt will report that she can ambulate using LRAD or no AD for at least 20 minutes in order to demonstrate improved BLE strength, pain management, and activity tolerance 10/29/23: Pt reports that she is able to ambulate with spc or without spc at grocery store for >20 minutes without pain or difficultt LTG Duration 10 weeks MET Four Impairment strength Impairment R hip strength 3+/5 MMT Short Term Goal (STG) Pt will improve R hip global hip strength to at least 4/5 in order to demonstrate improved hip strength needed for gait, balance, and stairs 10/29/23: 4/5 MMT for all, no pain with resisted motion STG Duration 5 weeks MET Half-Way Goal (LTG) Pt will improve R hip global hip strength to at least 4+/5 in order to demonstrate improved hip strength needed for gait, balance, and stairs LTG Duration 10 weeks Three Impairment strength Impairment L hip strength 4-/5 except IR 3+/5 MMT Short Term Goal (STG) Pt will improve L global hip strength to at least 4/5 in order to demonstrate improved hip strength needed for gait, balance, and stairs 10/29/23: 4/5 MMT for all, no pain with resisted motion STG Duration 5 weeks MET Half-Way Goal (LTG) Pt will improve L global hip strength to at least 4+/5 in order to demonstrate improved hip strength needed for gait, balance, and stairs LTG Duration 10 weeks Two Impairment strength Impairment 30 second STS = 10 Half-Way Goal (LTG) Pt will be able to perform at least 15 sit to stands within 30 seconds without compensation or pain in order to demonstrate improved BLE strength and tolerance for activity. 10/29/23: 17 STS in 30 seconds LTG Duration 10 weeks MET One Impairment function Impairment LEFS 32/80 Electrical Designer Drafter Goal (LTG) Pt will increase LEFS score to greater than 50/80 in order to demonstrate improved tolerance for ADLs and activity. LTG Duration 10 weeks Assessment Summary Assessment Bambi reports no pain with right SLR post manual therapy. Unable to perform 8 inch step up without UE use without pain right knee proximal to/ supra patella. Good return demonstration and reports of no increased pain for 6 inch step up step back and LAQ with level 2 band. Physical Therapy Plan Frequency and Duration Frequency of Treatment 2x/Week Duration of treatment (weeks) 10 Plan of Care Start Date 09/29/23 Plan of Care End Date 12/08/23 Next Visit Focus/Plan Next Note Type Treatment Note Next Visit Plan Cont STM work and hip mobilization if groin pain with hip flexion persists, Balance Progress BLE strengthening: lateral step ups, touch downs, step ups 8, LAQ/level 3 band , leg press/Step up focus next session balance, step up/step back to HEP, reassess tandem stance.
--- NOTE | 2023-11-11 16:00 | PT.OTN ---
Current Diagnoses Other chronic pain (11/11/23) Pain in right knee (11/11/23) Pain in left knee (11/11/23) Dorsalgia, unspecified (11/11/23) Physical Therapy Treatment Note PT-OP-A Visit Information Start: 09/29/23 09:02 Freq: Status: Active Protocol: Document 11/11/23 13:47 NM (Rec: 11/11/23 14:32 NM [id number]) Out-Patient Physical Therapy Visit Information Visit Information Visit Type Treatment Note Visit Start Time 13:47 Visit Stop Time 14:30 Visit Number 11 Evaluation Information Evaluation Date 09/29/23 Precautions Precautions Fall risk PT-OP-B Current Condition Start: 09/29/23 09:02 Freq: Status: Active Protocol: Document 09/29/23 09:02 NM (Rec: 09/29/23 10:30 NM [id number]) Current Condition History of Current Condition Onset Date early 2021 Current Complaints BLE weakness, pain in anterolateral hips History of Current Condition Pt presents to clinic with occasional pain in her lumbar spine, along with B hip and knee pain beginning in early 2021. Pt reports that she used to be sedentary and has lost a lot of weight; however, she is just very weak and has pain with activity. She reports difficulty with ambulation, particularly due to pain in the front of her hips. 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 She developed lymphedema recently and is being treated for that as well. Overall, she reports extensive fatigue with activities, particularly when having to stand or ambulate for greater than 10 minutes; relieved with rest. She also reports knee/hip pain with stairs, particulary during descent. She reports no falls but states that she feels off balance during standing and gait. She used to use a spc for gait for the past 10-11 months, but reports that she has felt stronger in the last 2-3 weeks and hasn't needed the spc (taking the stairs 5- 6x/day at home). Previous meniscus injury to L knee; current injury to L shoulder from lifting an object last week. 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 Treatment Goals Patient/Caregiver Goals Decrease pain, get back to ballroom dancing Current Functional Impairments (Reported) Functional Limitations- ADL's Difficulty with ADLs involving fwd trunk flexion Functional Limitations- Mobility/Gait Unable to walk/stand >10 min due to B hip and knee pain, prn spc use PT-OP-C Subjective Start: 09/29/23 09:02 Freq: Status: Active Protocol: Document 11/11/23 13:47 NM (Rec: 11/11/23 14:32 NM [id number]) OP-PT Subjective Patient Comments Patient Comments Pt reports 1/10 R hip/knee pain today. She states that she had 7/10 knee pain then hip pain yesterday, but she doesn't know why. She reports that she is having more difficulty with stairs, using her arms more to assist. Has been compliant with HEP, reports PT is very helpful and she's made improvements. She feels like she really needs to stretch her hips. Her biggest concern is trying to reach her R foot in the shower (hip ER) PT-OP-D Balance Start: 09/29/23 09:02 Freq: Status: Active Protocol: Document 09/29/23 09:02 NM (Rec: 09/29/23 10:30 NM [id number]) OP-PT Balance Assessment Sitting Balance Static Sitting Balance Ability Normal Dynamic Sitting Balance Ability Normal Standing Balance Static Standing Balance Ability Fair Dynamic Standing Balance Ability Fair Balance Tests Romberg Romberg 10 seconds, mild trunk sway, no LOB Single Limb Standing Single Limb- Right 1 second Single Limb- Left 2 seconds Tandem Tandem Standing difficulty with getting into position; maintains <2 sec Espinal Fall Scale Copyright Permission PT-OP-E Functional Tests Start: 09/29/23 09:02 Freq: Status: Active Protocol: Document 09/29/23 09:02 NM (Rec: 09/29/23 10:30 NM [id number]) Functional Tests 30 Second Sit to Stand Test Score 10 reps Comments no pain reported but slow; no UE use Tinetti Balance and Gait Assessment Balance Score 11 Gait Score 7 Composite Score PT-OP-F Manual Assessment Start: 09/29/23 09:02 Freq: Status: Active Protocol: Document 09/29/23 09:02 NM (Rec: 09/29/23 10:30 NM [id number]) Manual Assessments Soft Tissue Assessment Soft Tissue Mobility Assessment Mild soft tissue restrictions of B lumbar paraspinals/QL, but not tender to palpation. Demos B hip flexor tightness, pain with R hip pain Joint Mobility Assessment Joint Mobility Assessment Full L hip PROM. Limited R hip PROM, demos guarding with flexion verena into IR>ER and painful. No instability of B knees noted. No clicking, popping, locking, giving out of B hips or knees. PT-OP-G Mobility & Gait Start: 09/29/23 09:02 Freq: Status: Active Protocol: Document 09/29/23 09:02 NM (Rec: 09/29/23 10:30 NM [id number]) OP Mobility Evaluation Bed Mobility Rolling Difficulty with rolling due to pain. Sits up from supine to EOB then transfers to prone OP Gait Assessment Gait Gait Assistance Required: Independent Distance (Feet) 150 Assistive Devices Assistive Device None Gait Deviations General Gait Pattern Antalgic,Flexed Trunk Factors Limiting Gait Function Factors Limiting Gait Function Decreased Activity Tolerance, Decreased Strength,Limited Range of Motion,Pain,Poor Balance Comments Gait Comments Antalgic gait pattern with fwd flexed trunk posture, mild- mod trunk sway. Lateral trunk deviation PT-OP-H Neuro Start: 09/29/23 09:02 Freq: Status: Active Protocol: Document 09/29/23 09:02 NM (Rec: 09/29/23 10:30 NM [id number]) Sensation Evaluation Gross Sensation Gross Sensation WNL Comments Summary Comments BLE intact to light touch sensation equally despite reported numbness in L 2nd and 3rd toes Deep Tendon Reflex & Clonus Assessment Deep Tendon Reflex Bilateral Patellar Deep Tendon Reflex 1+ Diminished PT-OP-J Posture/Palpation/Skin Start: 09/29/23 09:02 Freq: Status: Active Protocol: Document 09/29/23 09:02 NM (Rec: 09/29/23 10:30 NM [id number]) Posture Evaluation Position Standing Evaluation View posterior, lateral Head/C-Spine Posture Forward Head L-Spine Posture Increased Lordosis Shoulder Posture (L) Forward,(R) Forward,(L) Elevated Scapula Posture (L) Protracted,(R) Protracted Arm Posture (L) Internally Rotated,(R) Internally Rotated Pelvis Posture Anteriorly Tilted,(L) Iliac Crest Superior Weight Distribution Weight Shifted Right Knee Posture (L) Genu Varus,(R) Genu Varus Patellar Posture (L) Superior,(R) Superior Palpation Assessment Location Lumbar spine Palpation Location L4-S1, SI joints, Palpation Findings Tenderness Palpation Details Tender to palpation along spinous processes of L4-S1, L4 is most tender. B hips Palpation Location greater trochanter, gluteals Palpation Findings Soft Tissue Tightness,Spasm, Muscle Guarding,Tenderness Palpation Details Tenderness to B greater trochanters (L>R), worse with internal/external rotation. Muscle guarding and tenderness of B gluteals, L>R. PT-OP-K Range of Motion Start: 09/29/23 09:02 Freq: Status: Active Protocol: Document 10/29/23 13:47 NM (Rec: 10/29/23 14:32 NM [id number]) Hip Goniometric Range of Motion Hip Right Flexion w/Knee Flexed 90 Internal Rotation 20 External Rotation 20 Comments Passive hip flexion 110 deg. Hip/greater trochanter pain with internal rotation 10/29/23: 30 deg ER, 25 deg IR, hip flexion 108 deg; no pain with any motion Left Flexion w/Knee Flexed 115 Internal Rotation 25 External Rotation 30 Comments Passive hip flexion 110 deg. Hip/greater trochanter pain with internal rotation. 10/29/23: 115 deg hip flexion active, hip IR 25 deg, hip ER 30 deg; no pain PT-OP-L Special Tests Start: 09/29/23 09:02 Freq: Status: Active Protocol: Document 09/29/23 09:02 NM (Rec: 09/29/23 10:30 NM [id number]) Special Tests Lumbar Spine Special Tests Straight Leg Raise Test Results negative Comments does not reproduce local or referred pain Michael/Quadrant Test Results negative Comments does not reproduce local or referred pain Hip Special Tests Scour Test Test Results negative bilaterally Anterior Labral Test Test Results negative bilaterally FADIR Test Results positive bilaterally (L>R) Comments Reproduces pain along B greater trochanter and posterior glutes. Moderate muscle guarding verena with L. Minimal pain reported in anterior hip/groin PT-OP-M Strength Start: 09/29/23 09:02 Freq: Status: Active Protocol: Document 10/29/23 13:47 NM (Rec: 10/29/23 14:32 NM [id number]) Hip Strength Hip Manual Muscle Testing Right Flexion (L2) 3+ Fair+ Extension (S1) 3+ Fair+ Abduction 3+ Fair+ Adduction 3+ Fair+ External Rotation 3+ Fair+ Internal Rotation 3+ Fair+ Comments Pain with resisted IR > flexion 10/29/23: 4/5, no pain with resisted motion Left Flexion (L2) 4- Good- Extension (S1) 4- Good- Abduction 4- Good- Adduction 4- Good- External Rotation 4- Good- Internal Rotation 3+ Fair+ Comments Pain with resisted IR 10/29/23: 4/5, no pain with resisted motion PT-OP-Q Treatments Start: 09/29/23 09:02 Freq: Status: Active Protocol: Document 11/11/23 13:47 NM (Rec: 11/11/23 14:32 NM [id number]) Therapeutic Exercises Supine Exercises figure 4 stretch Supine Exercise Name knee flexed Side right Reps/Minutes 1x60 Comments post mobilization; reports good feedback with stretch, no pain with hip ER SLR Supine Exercise Name with hip IR Side right Reps/Minutes 1x5 Comments following mob; TFL; hard knee to chest stretch Supine Exercise Name knee to chest with towel roll at groin Side right Reps/Minutes 1x60 Comments towel roll for gapping; reports good feedback with stretch Sitting Exercises hip ER Sitting Exercise Name performed 1 LE at time Side bilateral Resistance lvl 1 tb Reps/Minutes 2x10 with brief hold at end range Comments R more challenging than L hip IR Sitting Exercise Name performed 1 LE at time Side bilateral Resistance AROM Equipment Used pillow between knees Reps/Minutes 2x10 with brief hold Comments no pain reported; following mobilization LAQ Sitting Exercise Name LAQ with band Side bilateral Resistance 4# ea (progress next time) Reps/Minutes 2x10 with 2 hold at TKE Comments reports medium difficulty Standing Exercises lateral step ups Standing Exercise Name trialed: 4 Side bilateral Resistance 4# ankle weight ea LE Reps/Minutes 1x10 ea Comments monitored for pain; reports none, but fatiguing step ups Standing Exercise Name 6 inch step ( step up step back) Side bilateral Resistance 4# ankle weights ea LE Reps/Minutes 1x10 ea Comments monitored for pain, reports L groin pain initially but resolves bilateral heel raise Side bilateral Equipment Used no hand support Reps/Minutes 2x10 Comments improved control eccentrically and AROM concentrically Manual Therapy Treatment Soft Tissue Mobilization R hip Body Location gluteal piriformis area, ITB, hamstring, TFL Mobilization Type Rolling,Sustained Pressure, Trigger Point Release Intensity/Depth Moderate Body Position Sidelying Comments Sustained pressure, rolling along glutes and hamstring. Trigger point release of piriformis. Performed mobilization with movement using hip ER/IR in sidelying to mobilize piriformis with sustained pressure. Monitored for pain. Pt reports piriformis/gluteal soft tissue relief post mobilization Educated on stretching/ strengthening muscles connected to ITB over rolling. Tender R ITB. Rolling and sustained pressure of glutes, TFL Joint Mobilizations LAD Joint right hip long axis distraction Grade IV Body Position Hooklying Reps/Duration 2 min, with 10 oscillations intermittently Comments monitored for pain. Reports relief post axial distraction. Open pack position right hip joint mobilizations Joint right hip Direction Inferior, inferior-lateral, lateral; P-A in sidelying Grade III Reps/Duration 1x30 inf-lat, 2x30 inf and lat; 1x30 P-A Comments Grade II>III. For pain reduction, improved hip mobility. Monitored for pain. Reports most relief of R hip joint with lateral glide Self-Care/Home Management Treatment Education Patient Education Home Exercise Program Other Education HEP: seated hip ER with band, seated hip IR without band and pillow between knees PT-OP-T Assessment and Plan Start: 09/29/23 09:02 Freq: Status: Active Protocol: Document 11/11/23 13:47 NM (Rec: 11/11/23 14:32 NM [id number]) Physical Therapy Assessment Goals Seven Impairment balance Impairment Tinetti Short Term Goal (STG) Pt will improve Tinetti score to at least 20/28 in order to demonstate decrease fall risk and improved balance 10/29/23: STG Duration 5 weeks Acid Crane Operator Goal (LTG) Pt will improve Tinetti score to at least 24/28 in order to demonstate decrease fall risk and improved balance 10/29/23: , stumbles with nudging but able to catch self (gait 08/24, 15 balance) LTG Duration 10 weeks MET Six Impairment balance Impairment tandem stance <2 seconds, difficulty getting into position Short Term Goal (STG) Pt will be able to position without assistance in tandem stance without LOB in order to demonstrate improved balance required for gait, recreational dancing 10/29/23: With cueing, pt able to achieve tandem independently but tends to use 1 hand to assist with balance , can maintain 30 sec ea without support STG Duration 5 weeks PROGRESSING Intermediate Goal (LTG) Pt will be able to stand at least 15 seconds in tandem stance without LOB in order to demonstrate improved balance required for gait LTG Duration 10 weeks Five Impairment gait Impairment Pt reports unable to ambulate more than 10 minutes before a seated rest break due to pain Short Term Goal (STG) Pt will be able to ambulate using LRAD or no AD for community distances (at least 600 ft) in order to demonstrate improved BLE strength, pain management, and activity tolerance 10/29/23: met w/o spc (carried) 600 ft, IND STG Duration 5 weeks MET Acid Crane Operator Goal (LTG) Pt will report that she can ambulate using LRAD or no AD for at least 20 minutes in order to demonstrate improved BLE strength, pain management, and activity tolerance 10/29/23: Pt reports that she is able to ambulate with spc or without spc at grocery store for >20 minutes without pain or difficultt LTG Duration 10 weeks MET Four Impairment strength Impairment R hip strength 3+/5 MMT Short Term Goal (STG) Pt will improve R hip global hip strength to at least 4/5 in order to demonstrate improved hip strength needed for gait, balance, and stairs 10/29/23: 4/5 MMT for all, no pain with resisted motion STG Duration 5 weeks MET Acid Crane Operator Goal (LTG) Pt will improve R hip global hip strength to at least 4+/5 in order to demonstrate improved hip strength needed for gait, balance, and stairs LTG Duration 10 weeks Three Impairment strength Impairment L hip strength 4-/5 except IR 3+/5 MMT Short Term Goal (STG) Pt will improve L global hip strength to at least 4/5 in order to demonstrate improved hip strength needed for gait, balance, and stairs 10/29/23: 4/5 MMT for all, no pain with resisted motion STG Duration 5 weeks MET Acid Crane Operator Goal (LTG) Pt will improve L global hip strength to at least 4+/5 in order to demonstrate improved hip strength needed for gait, balance, and stairs LTG Duration 10 weeks Two Impairment strength Impairment 30 second STS = 10 Intermediate Goal (LTG) Pt will be able to perform at least 15 sit to stands within 30 seconds without compensation or pain in order to demonstrate improved BLE strength and tolerance for activity. 10/29/23: 17 STS in 30 seconds LTG Duration 10 weeks MET One Impairment function Impairment LEFS 32/80 Intermediate Goal (LTG) Pt will increase LEFS score to greater than 50/80 in order to demonstrate improved tolerance for ADLs and activity. LTG Duration 10 weeks Assessment Summary Assessment Pt tolerated session well. She continues to have occasional groin pain with B hip flexion and especially with R hip ER. Pain is not consistent, and pt reports fewer instances overall since beginning PT. Began session with manual to improve pt R hip mobility. Continued with R hip mobilizations, grade II to III for pain reduction and mobility. Pt has most relief with lateral hip mobilization. Initiated posterior-anterior mobilization for improved hip extension and anterior capsule mobility. Pt has soft tissue restrictions of R piriformis and glutes; relieved with soft tissue mobilization with movement. PT educated pt on stretching and strengthening muscles related to IT band as part of HEP. Post manual treatment, pt able to perform supine and seated hip ER stretches without limitation or pain. Initiated seated hip ER and IR strengthening exercises. Progressed resistance of LAQ and step ups . Pt has L groin pain initially with step ups but resolved quickly. Initiated lateral step ups for hip abduction strengthening. Pt would benefit from progressive B hip/knee strengthening, mobility, and balance training in order to decrease fall risk and improve activity tolerance. Physical Therapy Plan Frequency and Duration Frequency of Treatment 2x/Week Duration of treatment (weeks) 10 Plan of Care Start Date 09/29/23 Plan of Care End Date 12/08/23 Therapeutic Interventions Therapeutic Interventions Balance Training,Coordination Training,Gait Training,Home Exercise Program,Joint Mobilizations,Manual Therapy, Neuromuscular Re-education, Orthotic/Prosthetic Management ,Patient/Caregiver Education, Self-Care/Home Management, Sensory Integration,Soft Tissue Mobilization,Taping, Therapeutic Activities, Therapeutic Exercises Modalities Cold Pack/Ice Massage,Hot Packs Next Visit Focus/Plan Next Note Type Treatment Note Next Visit Plan Cont STM work and hip mobilization if groin pain with hip flexion persists, Balance Progress BLE strengthening: lateral step ups, touch downs, step ups 8, LAQ/level 3 band (add ankle weight), leg press /Step up focus next session balance, step up/step back to HEP, reassess tandem stance. Trial resisted walking, unstable surfaces for balance, changing MANNIE and head movement with gait
--- NOTE | 2023-11-19 14:00 | PT.OTN ---
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 Pt reports that she used to be sedentary and has lost a lot of weight; however, she is just very weak and has pain with activity. She reports difficulty with ambulation, particularly due to pain in the front of her hips. 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 She developed lymphedema recently and is being treated for that as well. Overall, she reports extensive fatigue with activities, particularly when having to stand or ambulate for greater than 10 minutes; relieved with rest. She also reports knee/hip pain with stairs, particulary during descent. She reports no falls but states that she feels off balance during standing and gait. She used to use a spc for gait for the past 10-11 months, but reports that she has felt stronger in the last 2-3 weeks and hasn't needed the spc (taking the stairs 5- 6x/day at home). Previous meniscus injury to L knee; current injury to L shoulder from lifting an object last week. 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 Treatment Goals Patient/Caregiver Goals Decrease pain, get back to ballroom dancing Current Functional Impairments (Reported) Functional Limitations- ADL's Difficulty with ADLs involving fwd trunk flexion Functional Limitations- Mobility/Gait Unable to walk/stand >10 min due to B hip and knee pain, prn spc use PT-OP-C Subjective Start: 09/29/23 09:02 Freq: Status: Active Protocol: Document 11/19/23 12:43 AB (Rec: 11/19/23 14:00 AB [id number]) OP-PT Subjective Patient Comments Patient Comments Patient reports she is shelter recovered with the hip and knee pain, she attributes the pain from performing the step exercise. Patient reports she did not perform the exercise ( step ) at home. PT-OP-D Balance Start: 09/29/23 09:02 Freq: Status: Active Protocol: Document 09/29/23 09:02 NM (Rec: 09/29/23 10:30 NM [id number]) OP-PT Balance Assessment Sitting Balance Static Sitting Balance Ability Normal Dynamic Sitting Balance Ability Normal Standing Balance Static Standing Balance Ability Fair Dynamic Standing Balance Ability Fair Balance Tests Romberg Romberg 10 seconds, mild trunk sway, no LOB Single Limb Standing Single Limb- Right 1 second Single Limb- Left 2 seconds Tandem Tandem Standing difficulty with getting into position; maintains <2 sec Espinal Fall Scale Copyright Permission PT-OP-E Functional Tests Start: 09/29/23 09:02 Freq: Status: Active Protocol: Document 09/29/23 09:02 NM (Rec: 09/29/23 10:30 NM [id number]) Functional Tests 30 Second Sit to Stand Test Score 10 reps Comments no pain reported but slow; no UE use Tinetti Balance and Gait Assessment Balance Score 11 Gait Score 7 Composite Score PT-OP-F Manual Assessment Start: 09/29/23 09:02 Freq: Status: Active Protocol: Document 09/29/23 09:02 NM (Rec: 09/29/23 10:30 NM [id number]) Manual Assessments Soft Tissue Assessment Soft Tissue Mobility Assessment Mild soft tissue restrictions of B lumbar paraspinals/QL, but not tender to palpation. Demos B hip flexor tightness, pain with R hip pain Joint Mobility Assessment Joint Mobility Assessment Full L hip PROM. Limited R hip PROM, demos guarding with flexion verena into IR>ER and painful. No instability of B knees noted. No clicking, popping, locking, giving out of B hips or knees. PT-OP-G Mobility & Gait Start: 09/29/23 09:02 Freq: Status: Active Protocol: Document 09/29/23 09:02 NM (Rec: 09/29/23 10:30 NM [id number]) OP Mobility Evaluation Bed Mobility Rolling Difficulty with rolling due to pain. Sits up from supine to EOB then transfers to prone OP Gait Assessment Gait Gait Assistance Required: Independent Distance (Feet) 150 Assistive Devices Assistive Device None Gait Deviations General Gait Pattern Antalgic,Flexed Trunk Factors Limiting Gait Function Factors Limiting Gait Function Decreased Activity Tolerance, Decreased Strength,Limited Range of Motion,Pain,Poor Balance Comments Gait Comments Antalgic gait pattern with fwd flexed trunk posture, mild- mod trunk sway. Lateral trunk deviation PT-OP-H Neuro Start: 09/29/23 09:02 Freq: Status: Active Protocol: Document 09/29/23 09:02 NM (Rec: 09/29/23 10:30 NM [id number]) Sensation Evaluation Gross Sensation Gross Sensation WNL Comments Summary Comments BLE intact to light touch sensation equally despite reported numbness in L 2nd and 3rd toes Deep Tendon Reflex & Clonus Assessment Deep Tendon Reflex Bilateral Patellar Deep Tendon Reflex 1+ Diminished PT-OP-J Posture/Palpation/Skin Start: 09/29/23 09:02 Freq: Status: Active Protocol: Document 09/29/23 09:02 NM (Rec: 09/29/23 10:30 NM [id number]) Posture Evaluation Position Standing Evaluation View posterior, lateral Head/C-Spine Posture Forward Head L-Spine Posture Increased Lordosis Shoulder Posture (L) Forward,(R) Forward,(L) Elevated Scapula Posture (L) Protracted,(R) Protracted Arm Posture (L) Internally Rotated,(R) Internally Rotated Pelvis Posture Anteriorly Tilted,(L) Iliac Crest Superior Weight Distribution Weight Shifted Right Knee Posture (L) Genu Varus,(R) Genu Varus Patellar Posture (L) Superior,(R) Superior Palpation Assessment Location Lumbar spine Palpation Location L4-S1, SI joints, Palpation Findings Tenderness Palpation Details Tender to palpation along spinous processes of L4-S1, L4 is most tender. B hips Palpation Location greater trochanter, gluteals Palpation Findings Soft Tissue Tightness,Spasm, Muscle Guarding,Tenderness Palpation Details Tenderness to B greater trochanters (L>R), worse with internal/external rotation. Muscle guarding and tenderness of B gluteals, L>R. PT-OP-K Range of Motion Start: 09/29/23 09:02 Freq: Status: Active Protocol: Document 10/29/23 13:47 NM (Rec: 10/29/23 14:32 NM [id number]) Hip Goniometric Range of Motion Hip Right Flexion w/Knee Flexed 90 Internal Rotation 20 External Rotation 20 Comments Passive hip flexion 110 deg. Hip/greater trochanter pain with internal rotation 10/29/23: 30 deg ER, 25 deg IR, hip flexion 108 deg; no pain with any motion Left Flexion w/Knee Flexed 115 Internal Rotation 25 External Rotation 30 Comments Passive hip flexion 110 deg. Hip/greater trochanter pain with internal rotation. 10/29/23: 115 deg hip flexion active, hip IR 25 deg, hip ER 30 deg; no pain PT-OP-L Special Tests Start: 09/29/23 09:02 Freq: Status: Active Protocol: Document 09/29/23 09:02 NM (Rec: 09/29/23 10:30 NM [id number]) Special Tests Lumbar Spine Special Tests Straight Leg Raise Test Results negative Comments does not reproduce local or referred pain Michael/Quadrant Test Results negative Comments does not reproduce local or referred pain Hip Special Tests Scour Test Test Results negative bilaterally Anterior Labral Test Test Results negative bilaterally FADIR Test Results positive bilaterally (L>R) Comments Reproduces pain along B greater trochanter and posterior glutes. Moderate muscle guarding verena with L. Minimal pain reported in anterior hip/groin PT-OP-M Strength Start: 09/29/23 09:02 Freq: Status: Active Protocol: Document 10/29/23 13:47 NM (Rec: 10/29/23 14:32 NM [id number]) Hip Strength Hip Manual Muscle Testing Right Flexion (L2) 3+ Fair+ Extension (S1) 3+ Fair+ Abduction 3+ Fair+ Adduction 3+ Fair+ External Rotation 3+ Fair+ Internal Rotation 3+ Fair+ Comments Pain with resisted IR > flexion 10/29/23: 4/5, no pain with resisted motion Left Flexion (L2) 4- Good- Extension (S1) 4- Good- Abduction 4- Good- Adduction 4- Good- External Rotation 4- Good- Internal Rotation 3+ Fair+ Comments Pain with resisted IR 10/29/23: 4/5, no pain with resisted motion PT-OP-Q Treatments Start: 09/29/23 09:02 Freq: Status: Active Protocol: Document 11/19/23 12:43 AB (Rec: 11/19/23 14:00 AB [id number]) Gym Equipment Shuttle Balance red Details feet on fours and stagger stance Reps/Duration 3 min Comments visual scanning and head turns with feet on 4's CGA to minimal assist throughout Therapeutic Exercises Supine Exercises figure 4 stretch Supine Exercise Name knee flexed Side right Reps/Minutes 1x60 piriformis stretch Side bilateral Reps/Minutes 60 seconds X 2 each LE Comments Verbal and tactile cues Luther stretch Supine Exercise Name edge of bed Side bilateral Equipment Used hooklying with LE of mat Reps/Minutes X1 each LE Sitting Exercises LAQ Sitting Exercise Name LAQ with band Side bilateral Resistance level 3 band Reps/Minutes X10 Comments level 3 added to HEP Manual Therapy Treatment Soft Tissue Mobilization right hip flexor Body Location at groin Bilateral this session Mobilization Type Cross-Friction,Rolling Intensity/Depth Moderate Body Position Hooklying Comments monitored for pain L hip Body Location Gluteal piriformis area Mobilization Type Rolling Intensity/Depth Moderate Body Position Sidelying Comments monitored for pain, performed pre stretch into hip IR Neuro Re-Education Treatment Balance Activities wall fall Details 2 pillows behind back Surface floor Reps/Duration X3 Comments Mimics hip stragegy step up taps Details 8 inch step Surface floor Reps/Duration 2X10 left and right LE Comments gait belt CGA hands above parallel bars Other Activities resisted walking Details manual resistance Reps/Duration 10 feet X 2 fwd 10 feet X 2 retro Comments Patient comments retro is easier PT-OP-T Assessment and Plan Start: 09/29/23 09:02 Freq: Status: Active Protocol: Document 11/19/23 12:43 AB (Rec: 11/19/23 14:00 AB [id number]) Physical Therapy Assessment Goals Seven Impairment balance Impairment Tinetti 18/28 Short Term Goal (STG) Pt will improve Tinetti score to at least 20/28 in order to demonstate decrease fall risk and improved balance 10/29/23: 2728 STG Duration 5 weeks Retirement Goal (LTG) Pt will improve Tinetti score to at least 24/28 in order to demonstate decrease fall risk and improved balance 10/29/23: , stumbles with nudging but able to catch self (gait 08/24, balance) LTG Duration 10 weeks MET Six Impairment balance Impairment tandem stance <2 seconds, difficulty getting into position Short Term Goal (STG) Pt will be able to position without assistance in tandem stance without LOB in order to demonstrate improved balance required for gait, recreational dancing 10/29/23: With cueing, pt able to achieve tandem independently but tends to use 1 hand to assist with balance , can maintain 30 sec ea without support STG Duration 5 weeks PROGRESSING Retirement Goal (LTG) Pt will be able to stand at least 15 seconds in tandem stance without LOB in order to demonstrate improved balance required for gait LTG Duration 10 weeks Five Impairment gait Impairment Pt reports unable to ambulate more than 10 minutes before a seated rest break due to pain Short Term Goal (STG) Pt will be able to ambulate using LRAD or no AD for community distances (at least 600 ft) in order to demonstrate improved BLE strength, pain management, and activity tolerance 10/29/23: met w/o spc (carried) 600 ft, IND STG Duration 5 weeks 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 Server Administrator 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 (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) Pt will report that she can ambulate using LRAD or no AD for at least 20 minutes in order to demonstrate improved BLE strength, pain management, and activity tolerance 10/29/23: Pt reports that she is able to ambulate with spc or without spc at grocery store for >20 minutes without pain or difficultt LTG Duration 10 weeks MET Four Impairment strength Impairment R hip strength 3+/5 MMT Short Term Goal (STG) Pt will improve R hip global hip strength to at least 4/5 in order to demonstrate improved hip strength needed for gait, balance, and stairs 10/29/23: 4/5 MMT for all, no pain with resisted motion STG Duration 5 weeks MET Retirement Goal (LTG) Pt will improve R hip global hip strength to at least 4+/5 in order to demonstrate improved hip strength needed for gait, balance, and stairs LTG Duration 10 weeks Three Impairment strength Impairment L hip strength 4-/5 except IR 3+/5 MMT Short Term Goal (STG) Pt will improve L global hip strength to at least 4/5 in order to demonstrate improved hip strength needed for gait, balance, and stairs 2/16/24: 4/5 MMT for all, no pain with resisted motion STG Duration 5 weeks MET Retirement Goal (LTG) Pt will improve L global hip strength to at least 4+/5 in order to demonstrate improved hip strength needed for gait, balance, and stairs LTG Duration 10 weeks Two Impairment strength Impairment 30 second STS = 10 [employer] Server Administrator Goal (LTG) Pt will be able to perform at least 15 sit to stands within 30 seconds without compensation or pain in order to demonstrate improved BLE strength and tolerance for activity. 10/29/23: 17 STS in 30 seconds LTG Duration 10 weeks MET One Impairment function Impairment LEFS 32/80 Retirement Goal (LTG) Pt will increase LEFS score to greater than 50/80 in order to demonstrate improved tolerance for ADLs and activity. LTG Duration 10 weeks Assessment Summary Assessment Bambi reports having no increased pain end of session, reports lifting right LE up in shower continues to be difficult. LE stiffness and weakness continues to impact functional mobility. Physical Therapy Plan Frequency and Duration Frequency of Treatment 2x/Week Duration of treatment (weeks) 10 Plan of Care Start Date 09/29/23 Plan of Care End Date 12/08/23 Next Visit Focus/Plan Next Visit Plan Cont STM work and hip mobilization if groin pain with hip flexion persists, Progress BLE strengthening: lateral step ups, touch downs, step ups 4, leg press/Step up focus next session balance, step up/step back to HEP, reassess tandem stance. Trial resisted walking, unstable surfaces for balance, changing MANNIE and head movement with gait for balance [ End ]
--- NOTE | 2023-11-23 14:55 | PT.OTN ---
Current Diagnoses Other chronic pain (11/23/23) Pain in right knee (11/23/23) Pain in left knee (11/23/23) Dorsalgia, unspecified (11/23/23) Physical Therapy Treatment Note PT-OP-A Visit Information Start: 09/29/23 09:02 Freq: Status: Active Protocol: Document 11/23/23 13:48 NM (Rec: 11/23/23 14:55 NM [id number]) Out-Patient Physical Therapy Visit Information Visit Information Visit Type Treatment Note Visit Note KX after 19th visit Visit Start Time 13:48 Visit Stop Time 14:30 Visit Number 12 PT-OP-B Current Condition Start: 09/29/23 09:02 Freq: Status: Active Protocol: Document 09/29/23 09:02 NM (Rec: 09/29/23 10:30 NM [id number]) Current Condition History of Current Condition Onset Date early 2021 Current Complaints BLE weakness, pain in anterolateral hips History of Current Condition Pt presents to clinic with occasional pain in her lumbar spine, along with B hip and knee pain beginning in early 2021. Pt reports that she used to be sedentary and has lost a lot of weight; however, she is just very weak and has pain with activity. She reports difficulty with ambulation, particularly due to pain in the front of her hips. 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 She developed lymphedema recently and is being treated for that as well. Overall, she reports extensive fatigue with activities, particularly when having to stand or ambulate for greater than 10 minutes; relieved with rest. She also reports knee/hip pain with stairs, particulary during descent. She reports no falls but states that she feels off balance during standing and gait. She used to use a spc for gait for the past 10-11 months, but reports that she has felt stronger in the last 2-3 weeks and hasn't needed the spc (taking the stairs 5- 6x/day at home). Previous meniscus injury to L knee; current injury to L shoulder from lifting an object last week. 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 Treatment Goals Patient/Caregiver Goals Decrease pain, get back to ballroom dancing Current Functional Impairments (Reported) Functional Limitations- ADL's Difficulty with ADLs involving fwd trunk flexion Functional Limitations- Mobility/Gait Unable to walk/stand >10 min due to B hip and knee pain, prn spc use PT-OP-C Subjective Start: 09/29/23 09:02 Freq: Status: Active Protocol: Document 11/23/23 13:48 NM (Rec: 11/23/23 14:55 NM [id number]) OP-PT Subjective Patient Comments Patient Comments Pt presents using spc due to reported feeling weaker today, but reports only 1/10 hip pain. She went dancing over the weekend, able to dance 7 dances without difficulty or pain in knees/hips. PT-OP-D Balance Start: 09/29/23 09:02 Freq: Status: Active Protocol: Document 09/29/23 09:02 NM (Rec: 09/29/23 10:30 NM [id number]) OP-PT Balance Assessment Sitting Balance Static Sitting Balance Ability Normal Dynamic Sitting Balance Ability Normal Standing Balance Static Standing Balance Ability Fair Dynamic Standing Balance Ability Fair Balance Tests Romberg Romberg 10 seconds, mild trunk sway, no LOB Single Limb Standing Single Limb- Right 1 second Single Limb- Left 2 seconds Tandem Tandem Standing difficulty with getting into position; maintains <2 sec Espinal Fall Scale Copyright Permission PT-OP-E Functional Tests Start: 09/29/23 09:02 Freq: Status: Active Protocol: Document 09/29/23 09:02 NM (Rec: 09/29/23 10:30 NM [id number]) Functional Tests 30 Second Sit to Stand Test Score 10 reps Comments no pain reported but slow; no UE use Tinetti Balance and Gait Assessment Balance Score 11 Gait Score 7 Composite Score PT-OP-F Manual Assessment Start: 09/29/23 09:02 Freq: Status: Active Protocol: Document 09/29/23 09:02 NM (Rec: 09/29/23 10:30 NM [id number]) Manual Assessments Soft Tissue Assessment Soft Tissue Mobility Assessment Mild soft tissue restrictions of B lumbar paraspinals/QL, but not tender to palpation. Demos B hip flexor tightness, pain with R hip pain Joint Mobility Assessment Joint Mobility Assessment Full L hip PROM. Limited R hip PROM, demos guarding with flexion verena into IR>ER and painful. No instability of B knees noted. No clicking, popping, locking, giving out of B hips or knees. PT-OP-G Mobility & Gait Start: 09/29/23 09:02 Freq: Status: Active Protocol: Document 09/29/23 09:02 NM (Rec: 09/29/23 10:30 NM [id number]) OP Mobility Evaluation Bed Mobility Rolling Difficulty with rolling due to pain. Sits up from supine to EOB then transfers to prone OP Gait Assessment Gait Gait Assistance Required: Independent Distance (Feet) 150 Assistive Devices Assistive Device None Gait Deviations General Gait Pattern Antalgic,Flexed Trunk Factors Limiting Gait Function Factors Limiting Gait Function Decreased Activity Tolerance, Decreased Strength,Limited Range of Motion,Pain,Poor Balance Comments Gait Comments Antalgic gait pattern with fwd flexed trunk posture, mild- mod trunk sway. Lateral trunk deviation PT-OP-H Neuro Start: 09/29/23 09:02 Freq: Status: Active Protocol: Document 09/29/23 09:02 NM (Rec: 09/29/23 10:30 NM [id number]) Sensation Evaluation Gross Sensation Gross Sensation WNL Comments Summary Comments BLE intact to light touch sensation equally despite reported numbness in L 2nd and 3rd toes Deep Tendon Reflex & Clonus Assessment Deep Tendon Reflex Bilateral Patellar Deep Tendon Reflex 1+ Diminished PT-OP-J Posture/Palpation/Skin Start: 09/29/23 09:02 Freq: Status: Active Protocol: Document 09/29/23 09:02 NM (Rec: 09/29/23 10:30 NM [id number]) Posture Evaluation Position Standing Evaluation View posterior, lateral Head/C-Spine Posture Forward Head L-Spine Posture Increased Lordosis Shoulder Posture (L) Forward,(R) Forward,(L) Elevated Scapula Posture (L) Protracted,(R) Protracted Arm Posture (L) Internally Rotated,(R) Internally Rotated Pelvis Posture Anteriorly Tilted,(L) Iliac Crest Superior Weight Distribution Weight Shifted Right Knee Posture (L) Genu Varus,(R) Genu Varus Patellar Posture (L) Superior,(R) Superior Palpation Assessment Location Lumbar spine Palpation Location L4-S1, SI joints, Palpation Findings Tenderness Palpation Details Tender to palpation along spinous processes of L4-S1, L4 is most tender. B hips Palpation Location greater trochanter, gluteals Palpation Findings Soft Tissue Tightness,Spasm, Muscle Guarding,Tenderness Palpation Details Tenderness to B greater trochanters (L>R), worse with internal/external rotation. Muscle guarding and tenderness of B gluteals, L>R. PT-OP-K Range of Motion Start: 09/29/23 09:02 Freq: Status: Active Protocol: Document 10/29/23 13:47 NM (Rec: 10/29/23 14:32 NM [id number]) Hip Goniometric Range of Motion Hip Right Flexion w/Knee Flexed 90 Internal Rotation 20 External Rotation 20 Comments Passive hip flexion 110 deg. Hip/greater trochanter pain with internal rotation 10/29/23: 30 deg ER, 25 deg IR, hip flexion 108 deg; no pain with any motion Left Flexion w/Knee Flexed 115 Internal Rotation 25 External Rotation 30 Comments Passive hip flexion 110 deg. Hip/greater trochanter pain with internal rotation. 10/29/23: 115 deg hip flexion active, hip IR 25 deg, hip ER 30 deg; no pain PT-OP-L Special Tests Start: 09/29/23 09:02 Freq: Status: Active Protocol: Document 09/29/23 09:02 NM (Rec: 09/29/23 10:30 NM [id number]) Special Tests Lumbar Spine Special Tests Straight Leg Raise Test Results negative Comments does not reproduce local or referred pain Michael/Quadrant Test Results negative Comments does not reproduce local or referred pain Hip Special Tests Scour Test Test Results negative bilaterally Anterior Labral Test Test Results negative bilaterally FADIR Test Results positive bilaterally (L>R) Comments Reproduces pain along B greater trochanter and posterior glutes. Moderate muscle guarding verena with L. Minimal pain reported in anterior hip/groin PT-OP-M Strength Start: 09/29/23 09:02 Freq: Status: Active Protocol: Document 10/29/23 13:47 NM (Rec: 10/29/23 14:32 NM [id number]) Hip Strength Hip Manual Muscle Testing Right Flexion (L2) 3+ Fair+ Extension (S1) 3+ Fair+ Abduction 3+ Fair+ Adduction 3+ Fair+ External Rotation 3+ Fair+ Internal Rotation 3+ Fair+ Comments Pain with resisted IR > flexion 10/29/23: 4/5, no pain with resisted motion Left Flexion (L2) 4- Good- Extension (S1) 4- Good- Abduction 4- Good- Adduction 4- Good- External Rotation 4- Good- Internal Rotation 3+ Fair+ Comments Pain with resisted IR 10/29/23: 4/5, no pain with resisted motion PT-OP-Q Treatments Start: 09/29/23 09:02 Freq: Status: Active Protocol: Document 11/23/23 13:48 NM (Rec: 11/23/23 14:55 NM [id number]) Therapeutic Exercises Supine Exercises figure 4 stretch Supine Exercise Name knee flexed Side right Reps/Minutes 1x60 Comments reports good feedback with stretch; post mobilization Sitting Exercises hip ER Sitting Exercise Name performed 1 LE at time Side bilateral Resistance lvl 1 tb Equipment Used then heel-cam taps 1x10 ea, with progression to knee 1x5 ea Reps/Minutes 2x10 L, 1x10; R with band 1x10 w/o band Comments R more challenging than L piriformis stretch Sitting Exercise Name piriformis stretch in sitting with foot crossed over leg Side bilateral Reps/Minutes 1x60 Comments verbal and tactile cues Standing Exercises marching Standing Exercise Name band around toes Side bilateral Resistance lvl 1 tb Equipment Used hand support for balance Reps/Minutes 2x10 Comments fatiguing; medium-hard, no pain with activity toe raise Side bilateral Resistance prn hand support for balance Reps/Minutes 2x10 Comments cued to limit rocking initially; improved with reps lateral lunge Side bilateral Resistance AROM Equipment Used prn hand support Reps/Minutes 2x8 Comments cued for post/hip shift hinge for improved mechanics; no pain lunge Side bilateral Resistance AORM Equipment Used 1 hand support Reps/Minutes 2x10 Comments cued for form with B knee flexion; improved w reps; medium calf stretch Standing Exercise Name standing //bars, staggered stance, straight knee Side bilateral Reps/Minutes 2x30 ea Comments cued heel on ground bilateral heel raise Side bilateral Equipment Used no hand support Reps/Minutes 2x10 Comments improved control eccentrically and AROM concentrically Manual Therapy Treatment Soft Tissue Mobilization L hip Body Location Gluteal/piriformis, ADD, HS, TFL, quad, hip flexors Mobilization Type Myofascial Release,Rolling, Sustained Pressure Intensity/Depth Moderate Body Position Sidelying,supine Comments Reports tender ITB, hip flexor s(TFL), and glutes. SMT to reduce soft tissue tightness, most resistricted and tender at lateral hip and glute/ piriformis. Performed gentle MWM for sachin/piriformis followed by stretching and strengthening. Reports improved symptoms post R hip Body Location gluteal/piriformis, ADD, HS, ITB, hamstring, TFL Mobilization Type Myofascial Release,Rolling, Sustained Pressure Intensity/Depth Moderate Body Position Sidelying,supine Comments Sustained pressure, rolling along glutes and hamstring. Performed mobilization with movement using hip ER/IR in sidelying to mobilize piriformis with sustained pressure. Pt reports piriformis/gluteal soft tissue relief post mobilization Joint Mobilizations left hips joint mobilizations Direction inferior, lateral Grade III Reps/Duration 1x30 ea Comments Grade III for improved hip mobility. Monitored for pain, none reported. Performed prior to stretching and exercise LAD Joint left, right hip long axis distraction Grade IV Body Position Hooklying Reps/Duration 1 min with 10 oscillations intermittently Comments Monitored for pain. Reports relief post axial distraction. Open pack position right hip joint mobilizations Joint right hip Direction Inferior, lateral Grade III Reps/Duration 1x30 ea Comments Grade III. Forimproved hip mobility. Monitored for pain. Reports most relief of R hip joint with lateral glide. Performed prior to stretching. Pt unable to reach figure 4 before mobilization but able after mobilization Self-Care/Home Management Treatment Education Patient Education Home Exercise Program Other Education HEP: seated hip ER with and without band, forward lunge with hand support PT-OP-T Assessment and Plan Start: 09/29/23 09:02 Freq: Status: Active Protocol: Document 11/23/23 13:48 NM (Rec: 11/23/23 14:55 NM [id number]) Physical Therapy Assessment Goals Seven Impairment balance Impairment Tinetti 18/28 Short Term Goal (STG) Pt will improve Tinetti score to at least 20/28 in order to demonstate decrease fall risk and improved balance 10/29/23: 27 STG Duration 5 weeks Counter Waiter Goal (LTG) Pt will improve Tinetti score to at least 24/28 in order to demonstate decrease fall risk and improved balance 10/29/23: , stumbles with nudging but able to catch self (gait 08/24, 15 balance) LTG Duration 10 weeks MET Six Impairment balance Impairment tandem stance <2 seconds, difficulty getting into position Short Term Goal (STG) Pt will be able to position without assistance in tandem stance without LOB in order to demonstrate improved balance required for gait, recreational dancing 10/29/23: With cueing, pt able to achieve tandem independently but tends to use 1 hand to assist with balance , can maintain 30 sec ea without support STG Duration 5 weeks PROGRESSING Care Home Goal (LTG) Pt will be able to stand at least 15 seconds in tandem stance without LOB in order to demonstrate improved balance required for gait LTG Duration 10 weeks Five Impairment gait Impairment Pt reports unable to ambulate more than 10 minutes before a seated rest break due to pain Short Term Goal (STG) Pt will be able to ambulate using LRAD or no AD for community distances (at least 600 ft) in order to demonstrate improved BLE strength, pain management, and activity tolerance 10/29/23: met w/o spc (carried) 600 ft, IND STG Duration 5 weeks MET Care Home Goal (LTG) Pt will report that she can ambulate using LRAD or no AD for at least 20 minutes in order to demonstrate improved BLE strength, pain management, and activity tolerance 10/29/23: Pt reports that she is able to ambulate with spc or without spc at grocery store for >20 minutes without pain or difficultt LTG Duration 10 weeks MET Four Impairment strength Impairment R hip strength 3+/5 MMT Short Term Goal (STG) Pt will improve R hip global hip strength to at least 4/5 in order to demonstrate improved hip strength needed for gait, balance, and stairs 10/29/23: 4/5 MMT for all, no pain with resisted motion STG Duration 5 weeks MET Care Home Goal (LTG) Pt will improve R hip global hip strength to at least 4+/5 in order to demonstrate improved hip strength needed for gait, balance, and stairs 11/23/23: 4/5 for flex, 4+/5 for ext/abd LTG Duration 10 weeks Three Impairment strength Impairment L hip strength 4-/5 except IR 3+/5 MMT Short Term Goal (STG) Pt will improve L global hip strength to at least 4/5 in order to demonstrate improved hip strength needed for gait, balance, and stairs 10/29/23: 4/5 MMT for all, no pain with resisted motion STG Duration 5 weeks MET Care Home Goal (LTG) Pt will improve L global hip strength to at least 4+/5 in order to demonstrate improved hip strength needed for gait, balance, and stairs 11/23/23: 4/5 for hip flexion, 4+/5 for abduction/extension LTG Duration 10 weeks Two Impairment strength Impairment 30 second STS = 10 Care Home Goal (LTG) Pt will be able to perform at least 15 sit to stands within 30 seconds without compensation or pain in order to demonstrate improved BLE strength and tolerance for activity. 10/29/23: 17 STS in 30 seconds LTG Duration 10 weeks MET One Impairment function Impairment LEFS 32/80 Care Home Goal (LTG) Pt will increase LEFS score to greater than 50/80 in order to demonstrate improved tolerance for ADLs and activity. 11/23/23: 60/80 LTG Duration 10 weeks MET Progress Towards Goals Progress Towards Goals Progressing Toward Goals,Goals Met Progress Comments MET LEFS activity goal Assessment Summary Assessment Pt tolerated session well without any increased pain in hips or knees. She is progressing well toward goals and is working toward meeting remaining goals. Pt continues to be most concerned about being able to lift her RLE into hip ER while in shower. Manual tx for improved hip mobility, followed by stretching and strengthening to re-educate correct muscle movement and alignment. Pt demos observable improvements in B hip AROM post mobilization and soft tissue mobilization, progressing from being unable to perform hip ER stretch to being able to perform after. Initiated lunges and lateral lunges to progress hip and knee strengthening with more dynamic movements to address balance as well. Pt requires cues for correct form and to minimize compensations. PT and pt discussed pt's POC as will be ending soon; pt and Pt planning to discharge at end of POC as long as pt continues to progress well; pt in agreement. Pt would benefit from skilled PT to address B hip/knee strengthening and mobility in order improve activity tolerance and decrease pain symptoms. Physical Therapy Plan Frequency and Duration Frequency of Treatment 2x/Week Duration of treatment (weeks) 10 Plan of Care Start Date 09/29/23 Plan of Care End Date 12/08/23 Therapeutic Interventions Therapeutic Interventions Balance Training,Coordination Training,Gait Training,Home Exercise Program,Joint Mobilizations,Manual Therapy, Neuromuscular Re-education, Orthotic/Prosthetic Management ,Patient/Caregiver Education, Self-Care/Home Management, Sensory Integration,Soft Tissue Mobilization,Taping, Therapeutic Activities, Therapeutic Exercises Modalities Cold Pack/Ice Massage,Hot Packs Next Visit Focus/Plan Next Visit Plan Cont STM work and hip mobilization if groin pain with hip flexion persists, Cont with hip ER/IR strengthening, lunges, lateral lunges Progress BLE strengthening: lateral step ups, touch downs, step ups 4, leg press/Step up focus next session balance, step up/step back to HEP, reassess tandem stance. Trial resisted walking, unstable surfaces for balance, changing MANNIE and head movement with gait for balance [ End ]
--- NOTE | 2023-11-26 14:18 | PT.OTN ---
Current Diagnoses Other chronic pain (11/26/23) Pain in right knee (11/26/23) Pain in left knee (11/26/23) Dorsalgia, unspecified (11/26/23) Physical Therapy Treatment Note PT-OP-A Visit Information Start: 09/29/23 09:02 Freq: Status: Active Protocol: Document 11/26/23 12:41 AB (Rec: 11/26/23 14:18 AB [id number]) Out-Patient Physical Therapy Visit Information Visit Information Visit Type Treatment Note Visit Note KX after 19th visit Access code [email or web address] Visit Start Time 01:02 Visit Stop Time 01:49 Visit Number 14 Number of DOOR TO DOOR SELLING AGENT Visits 1 Evaluation Information Evaluation Date 09/29/23 Precautions Precautions Fall risk PT-OP-B Current Condition Start: 09/29/23 09:02 Freq: Status: Active Protocol: Document 09/29/23 09:02 NM (Rec: 09/29/23 10:30 NM [id number]) Current Condition History of Current Condition Onset Date early 2021 Current Complaints BLE weakness, pain in anterolateral hips History of Current Condition Pt presents to clinic with occasional pain in her lumbar spine, along with B hip and knee pain beginning in early 2021. Pt reports that she used to be sedentary and has lost a lot of weight; however, she is just very weak and has pain with activity. She reports difficulty with ambulation, particularly due to pain in the front of her hips. 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 She developed lymphedema recently and is being treated for that as well. Overall, she reports extensive fatigue with activities, particularly when having to stand or ambulate for greater than 10 minutes; relieved with rest. She also reports knee/hip pain with stairs, particulary during descent. She reports no falls but states that she feels off balance during standing and gait. She used to use a spc for gait for the past 10-11 months, but reports that she has felt stronger in the last 2-3 weeks and hasn't needed the spc (taking the stairs 5- 6x/day at home). Previous meniscus injury to L knee; current injury to L shoulder from lifting an object last week. 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 Treatment Goals Patient/Caregiver Goals Decrease pain, get back to ballroom dancing Current Functional Impairments (Reported) Functional Limitations- ADL's Difficulty with ADLs involving fwd trunk flexion Functional Limitations- Mobility/Gait Unable to walk/stand >10 min due to B hip and knee pain, prn spc use PT-OP-C Subjective Start: 09/29/23 09:02 Freq: Status: Active Protocol: Document 11/26/23 12:41 AB (Rec: 11/26/23 14:18 AB [id number]) OP-PT Subjective Patient Comments Patient Comments Patient reports left hip pain 4-5 start of session, comments she did not sleep last night. PT-OP-D Balance Start: 09/29/23 09:02 Freq: Status: Active Protocol: Document 09/29/23 09:02 NM (Rec: 09/29/23 10:30 NM [id number]) OP-PT Balance Assessment Sitting Balance Static Sitting Balance Ability Normal Dynamic Sitting Balance Ability Normal Standing Balance Static Standing Balance Ability Fair Dynamic Standing Balance Ability Fair Balance Tests Romberg Romberg 10 seconds, mild trunk sway, no LOB Single Limb Standing Single Limb- Right 1 second Single Limb- Left 2 seconds Tandem Tandem Standing difficulty with getting into position; maintains <2 sec Espinal Fall Scale Copyright Permission PT-OP-E Functional Tests Start: 09/29/23 09:02 Freq: Status: Active Protocol: Document 09/29/23 09:02 NM (Rec: 09/29/23 10:30 NM [id number]) Functional Tests 30 Second Sit to Stand Test Score 10 reps Comments no pain reported but slow; no UE use Tinetti Balance and Gait Assessment Balance Score 11 Gait Score 7 Composite Score PT-OP-F Manual Assessment Start: 09/29/23 09:02 Freq: Status: Active Protocol: Document 09/29/23 09:02 NM (Rec: 09/29/23 10:30 NM [id number]) Manual Assessments Soft Tissue Assessment Soft Tissue Mobility Assessment Mild soft tissue restrictions of B lumbar paraspinals/QL, but not tender to palpation. Demos B hip flexor tightness, pain with R hip pain Joint Mobility Assessment Joint Mobility Assessment Full L hip PROM. Limited R hip PROM, demos guarding with flexion verena into IR>ER and painful. No instability of B knees noted. No clicking, popping, locking, giving out of B hips or knees. PT-OP-G Mobility & Gait Start: 09/29/23 09:02 Freq: Status: Active Protocol: Document 09/29/23 09:02 NM (Rec: 09/29/23 10:30 NM [id number]) OP Mobility Evaluation Bed Mobility Rolling Difficulty with rolling due to pain. Sits up from supine to EOB then transfers to prone OP Gait Assessment Gait Gait Assistance Required: Independent Distance (Feet) 150 Assistive Devices Assistive Device None Gait Deviations General Gait Pattern Antalgic,Flexed Trunk Factors Limiting Gait Function Factors Limiting Gait Function Decreased Activity Tolerance, Decreased Strength,Limited Range of Motion,Pain,Poor Balance Comments Gait Comments Antalgic gait pattern with fwd flexed trunk posture, mild- mod trunk sway. Lateral trunk deviation PT-OP-H Neuro Start: 09/29/23 09:02 Freq: Status: Active Protocol: Document 09/29/23 09:02 NM (Rec: 09/29/23 10:30 NM [id number]) Sensation Evaluation Gross Sensation Gross Sensation WNL Comments Summary Comments BLE intact to light touch sensation equally despite reported numbness in L 2nd and 3rd toes Deep Tendon Reflex & Clonus Assessment Deep Tendon Reflex Bilateral Patellar Deep Tendon Reflex 1+ Diminished PT-OP-J Posture/Palpation/Skin Start: 09/29/23 09:02 Freq: Status: Active Protocol: Document 09/29/23 09:02 NM (Rec: 09/29/23 10:30 NM [id number]) Posture Evaluation Position Standing Evaluation View posterior, lateral Head/C-Spine Posture Forward Head L-Spine Posture Increased Lordosis Shoulder Posture (L) Forward,(R) Forward,(L) Elevated Scapula Posture (L) Protracted,(R) Protracted Arm Posture (L) Internally Rotated,(R) Internally Rotated Pelvis Posture Anteriorly Tilted,(L) Iliac Crest Superior Weight Distribution Weight Shifted Right Knee Posture (L) Genu Varus,(R) Genu Varus Patellar Posture (L) Superior,(R) Superior Palpation Assessment Location Lumbar spine Palpation Location L4-S1, SI joints, Palpation Findings Tenderness Palpation Details Tender to palpation along spinous processes of L4-S1, L4 is most tender. B hips Palpation Location greater trochanter, gluteals Palpation Findings Soft Tissue Tightness,Spasm, Muscle Guarding,Tenderness Palpation Details Tenderness to B greater trochanters (L>R), worse with internal/external rotation. Muscle guarding and tenderness of B gluteals, L>R. PT-OP-K Range of Motion Start: 09/29/23 09:02 Freq: Status: Active Protocol: Document 10/29/23 13:47 NM (Rec: 10/29/23 14:32 NM [id number]) Hip Goniometric Range of Motion Hip Right Flexion w/Knee Flexed 90 Internal Rotation 20 External Rotation 20 Comments Passive hip flexion 110 deg. Hip/greater trochanter pain with internal rotation 10/29/23: 30 deg ER, 25 deg IR, hip flexion 108 deg; no pain with any motion Left Flexion w/Knee Flexed 115 Internal Rotation 25 External Rotation 30 Comments Passive hip flexion 110 deg. Hip/greater trochanter pain with internal rotation. 10/29/23: 115 deg hip flexion active, hip IR 25 deg, hip ER 30 deg; no pain PT-OP-L Special Tests Start: 09/29/23 09:02 Freq: Status: Active Protocol: Document 09/29/23 09:02 NM (Rec: 09/29/23 10:30 NM [id number]) Special Tests Lumbar Spine Special Tests Straight Leg Raise Test Results negative Comments does not reproduce local or referred pain Michael/Quadrant Test Results negative Comments does not reproduce local or referred pain Hip Special Tests Scour Test Test Results negative bilaterally Anterior Labral Test Test Results negative bilaterally FADIR Test Results positive bilaterally (L>R) Comments Reproduces pain along B greater trochanter and posterior glutes. Moderate muscle guarding verena with L. Minimal pain reported in anterior hip/groin PT-OP-M Strength Start: 09/29/23 09:02 Freq: Status: Active Protocol: Document 10/29/23 13:47 NM (Rec: 10/29/23 14:32 NM [id number]) Hip Strength Hip Manual Muscle Testing Right Flexion (L2) 3+ Fair+ Extension (S1) 3+ Fair+ Abduction 3+ Fair+ Adduction 3+ Fair+ External Rotation 3+ Fair+ Internal Rotation 3+ Fair+ Comments Pain with resisted IR > flexion 10/29/23: 4/5, no pain with resisted motion Left Flexion (L2) 4- Good- Extension (S1) 4- Good- Abduction 4- Good- Adduction 4- Good- External Rotation 4- Good- Internal Rotation 3+ Fair+ Comments Pain with resisted IR 10/29/23: 4/5, no pain with resisted motion PT-OP-Q Treatments Start: 09/29/23 09:02 Freq: Status: Active Protocol: Document 11/26/23 12:41 AB (Rec: 11/26/23 14:18 AB [id number]) Therapeutic Exercises Supine Exercises bent knee fall out Comments trial next session abdominal bracing LE ext Comments trial next session figure 4 stretch Supine Exercise Name knee flexed Side right Reps/Minutes X3 each LE 60 sec Comments Verbal anad tactile cues piriformis stretch Side bilateral Reps/Minutes 60 seconds X 3 each LE Comments verbal and tactile cues Luther stretch Supine Exercise Name edge of bed Side bilateral Equipment Used hooklying with LE of mat Reps/Minutes X2 each LE Comments post manual Manual Therapy Treatment Soft Tissue Mobilization right hip flexor Body Location at groin Bilateral this session Mobilization Type Cross-Friction,Rolling Intensity/Depth Moderate Body Position Hooklying Comments monitored for pain L hip Mobilization Type Cross-Friction,Rolling Intensity/Depth Moderate Body Position Sidelying Comments Monitored for pain R hip Body Location gluteal/piriformis, ADD, HS, ITB, hamstring, TFL Mobilization Type Cross-Friction,Rolling Intensity/Depth Moderate Body Position Sidelying Comments Monitored for pain Other Other Manual Treatments MET for right AI left PI and pubic shot gun 6X6 each X 2 Self-Care/Home Management Treatment Activities Self-Care/Home Management Activities self MET added to HEP to perform when needed ie not daily PT-OP-T Assessment and Plan Start: 09/29/23 09:02 Freq: Status: Active Protocol: Document 11/26/23 12:41 AB (Rec: 11/26/23 14:18 AB [id number]) Physical Therapy Assessment Goals Seven Impairment balance Impairment Tinetti Short Term Goal (STG) Pt will improve Tinetti score to at least 20/28 in order to demonstate decrease fall risk and improved balance 10/29/23: STG Duration 5 weeks Labor Relations Representative Goal (LTG) Pt will improve Tinetti score to at least 24/28 in order to demonstate decrease fall risk and improved balance 10/29/23: , stumbles with nudging but able to catch self (gait 08/24, balance) LTG Duration 10 weeks MET Six Impairment balance Impairment tandem stance <2 seconds, difficulty getting into position Short Term Goal (STG) Pt will be able to position without assistance in tandem stance without LOB in order to demonstrate improved balance required for gait, recreational dancing 10/29/23: With cueing, pt able to achieve tandem independently but tends to use 1 hand to assist with balance , can maintain 30 sec ea without support STG Duration 5 weeks PROGRESSING Skilled Nursing Goal (LTG) Pt will be able to stand at least 15 seconds in tandem stance without LOB in order to demonstrate improved balance required for gait LTG Duration 10 weeks Five Impairment gait Impairment Pt reports unable to ambulate more than 10 minutes before a seated rest break due to pain Short Term Goal (STG) Pt will be able to ambulate using LRAD or no AD for community distances (at least 600 ft) in order to demonstrate improved BLE strength, pain management, and activity tolerance 10/29/23: met w/o spc (carried) 600 ft, IND STG Duration 5 weeks MET Skilled Nursing Goal (LTG) Pt will report that she can ambulate using LRAD or no AD for at least 20 minutes in order to demonstrate improved BLE strength, pain management, and activity tolerance 10/29/23: Pt reports that she is able to ambulate with spc or without spc at grocery store for >20 minutes without pain or difficultt LTG Duration 10 weeks MET Four Impairment strength Impairment R hip strength 3+/5 MMT Short Term Goal (STG) Pt will improve R hip global hip strength to at least 4/5 in order to demonstrate improved hip strength needed for gait, balance, and stairs 10/29/23: 4/5 MMT for all, no pain with resisted motion STG Duration 5 weeks MET Labor Relations Representative Goal (LTG) Pt will improve R hip global hip strength to at least 4+/5 in order to demonstrate improved hip strength needed for gait, balance, and stairs 11/23/23: 4/5 for flex, 4+/5 for ext/abd LTG Duration 10 weeks Three Impairment strength Impairment L hip strength 4-/5 except IR 3+/5 MMT Short Term Goal (STG) Pt will improve L global hip strength to at least 4/5 in order to demonstrate improved hip strength needed for gait, balance, and stairs 10/29/23: 4/5 MMT for all, no pain with resisted motion STG Duration 5 weeks MET Skilled Nursing Goal (LTG) Pt will improve L global hip strength to at least 4+/5 in order to demonstrate improved hip strength needed for gait, balance, and stairs 11/23/23: 4/5 for hip flexion, 4+/5 for abduction/extension LTG Duration 10 weeks Two Impairment strength Impairment 30 second STS = 10 Skilled Nursing Goal (LTG) Pt will be able to perform at least 15 sit to stands within 30 seconds without compensation or pain in order to demonstrate improved BLE strength and tolerance for activity. 10/29/23: 17 STS in 30 seconds LTG Duration 10 weeks MET One Impairment function Impairment LEFS 32/80 Skilled Nursing Goal (LTG) Pt will increase LEFS score to greater than 50/80 in order to demonstrate improved tolerance for ADLs and activity. 11/23/23: 60/80 LTG Duration 10 weeks MET Assessment Summary Assessment Bambi reports pain with step up eliminated post MET. did have cramping in left foot which resloved by end of session. Physical Therapy Plan Frequency and Duration Frequency of Treatment 2x/Week Duration of treatment (weeks) 10 Plan of Care Start Date 09/29/23 Plan of Care End Date 12/08/23 Next Visit Focus/Plan Next Note Type Treatment Note Next Visit Plan Cont STM work and hip mobilization if groin pain with hip flexion persists, Cont with hip ER/IR strengthening, lunges, lateral lunges Progress BLE strengthening: lateral step ups, touch downs, revisit step ups 4, leg press/Step up focus next session balance, step up/step back to HEP, reassess tandem stance. Trial resisted walking, unstable surfaces for balance, changing MANNIE and head movement with gait for balance , hip IR with band, review seated hip abduction, bent knee fall out trial [ End ]
--- NOTE | 2023-11-30 16:19 | PT.OTN ---
Current Diagnoses Other chronic pain (11/30/23) Pain in right knee (11/30/23) Pain in left knee (11/30/23) Dorsalgia, unspecified (11/30/23) Physical Therapy Treatment Note PT-OP-A Visit Information Start: 09/29/23 09:02 Freq: Status: Active Protocol: Document 11/30/23 14:00 AB (Rec: 11/30/23 16:18 AB [id number]) Out-Patient Physical Therapy Visit Information Visit Information Visit Type Treatment Note Visit Note KX after visit Access code [email or web address] Visit Start Time 02:41 Visit Stop Time 03:19 Visit Number 15 Number of [employer] Visits 2 Evaluation Information Evaluation Date 09/29/23 PT-OP-B Current Condition Start: 09/29/23 09:02 Freq: Status: Active Protocol: Document 09/29/23 09:02 NM (Rec: 09/29/23 10:30 NM [id number]) Current Condition History of Current Condition Onset Date early 2021 Current Complaints BLE weakness, pain in anterolateral hips History of Current Condition Pt presents to clinic with occasional pain in her lumbar spine, along with B hip and knee pain beginning in early 2021. Pt reports that she used to be sedentary and has lost a lot of weight; however, she is just very weak and has pain with activity. She reports difficulty with ambulation, particularly due to pain in the front of her hips. 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 She developed lymphedema recently and is being treated for that as well. Overall, she reports extensive fatigue with activities, particularly when having to stand or ambulate for greater than 10 minutes; relieved with rest. She also reports knee/hip pain with stairs, particulary during descent. She reports no falls but states that she feels off balance during standing and gait. She used to use a spc for gait for the past 10-11 months, but reports that she has felt stronger in the last 2-3 weeks and hasn't needed the spc (taking the stairs 5- 6x/day at home). Previous meniscus injury to L knee; current injury to L shoulder from lifting an object last week. 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 Treatment Goals Patient/Caregiver Goals Decrease pain, get back to ballroom dancing Current Functional Impairments (Reported) Functional Limitations- ADL's Difficulty with ADLs involving fwd trunk flexion Functional Limitations- Mobility/Gait Unable to walk/stand >10 min due to B hip and knee pain, prn spc use PT-OP-C Subjective Start: 09/29/23 09:02 Freq: Status: Active Protocol: Document 11/30/23 14:00 AB (Rec: 11/30/23 16:18 AB [id number]) OP-PT Subjective Patient Comments Patient Comments Patient rates pain 2/10, post/ lat bilateral hips. Vasile reports she was able to dance at her dance post previous session. PT-OP-D Balance Start: 09/29/23 09:02 Freq: Status: Active Protocol: Document 09/29/23 09:02 NM (Rec: 09/29/23 10:30 NM [id number]) OP-PT Balance Assessment Sitting Balance Static Sitting Balance Ability Normal Dynamic Sitting Balance Ability Normal Standing Balance Static Standing Balance Ability Fair Dynamic Standing Balance Ability Fair Balance Tests Romberg Romberg 10 seconds, mild trunk sway, no LOB Single Limb Standing Single Limb- Right 1 second Single Limb- Left 2 seconds Tandem Tandem Standing difficulty with getting into position; maintains <2 sec Espinal Fall Scale Copyright Permission PT-OP-E Functional Tests Start: 09/29/23 09:02 Freq: Status: Active Protocol: Document 09/29/23 09:02 NM (Rec: 09/29/23 10:30 NM [id number]) Functional Tests 30 Second Sit to Stand Test Score 10 reps Comments no pain reported but slow; no UE use Tinetti Balance and Gait Assessment Balance Score 11 Gait Score 7 Composite Score 18/28 PT-OP-F Manual Assessment Start: 09/29/23 09:02 Freq: Status: Active Protocol: Document 09/29/23 09:02 NM (Rec: 09/29/23 10:30 NM [id number]) Manual Assessments Soft Tissue Assessment Soft Tissue Mobility Assessment Mild soft tissue restrictions of B lumbar paraspinals/QL, but not tender to palpation. Demos B hip flexor tightness, pain with R hip pain Joint Mobility Assessment Joint Mobility Assessment Full L hip PROM. Limited R hip PROM, demos guarding with flexion verena into IR>ER and painful. No instability of B knees noted. No clicking, popping, locking, giving out of B hips or knees. PT-OP-G Mobility & Gait Start: 09/29/23 09:02 Freq: Status: Active Protocol: Document 09/29/23 09:02 NM (Rec: 09/29/23 10:30 NM [id number]) OP Mobility Evaluation Bed Mobility Rolling Difficulty with rolling due to pain. Sits up from supine to EOB then transfers to prone OP Gait Assessment Gait Gait Assistance Required: Independent Distance (Feet) 150 Assistive Devices Assistive Device None Gait Deviations General Gait Pattern Antalgic,Flexed Trunk Factors Limiting Gait Function Factors Limiting Gait Function Decreased Activity Tolerance, Decreased Strength,Limited Range of Motion,Pain,Poor Balance Comments Gait Comments Antalgic gait pattern with fwd flexed trunk posture, mild- mod trunk sway. Lateral trunk deviation PT-OP-H Neuro Start: 09/29/23 09:02 Freq: Status: Active Protocol: Document 09/29/23 09:02 NM (Rec: 09/29/23 10:30 NM [id number]) Sensation Evaluation Gross Sensation Gross Sensation WNL Comments Summary Comments BLE intact to light touch sensation equally despite reported numbness in L 2nd and 3rd toes Deep Tendon Reflex & Clonus Assessment Deep Tendon Reflex Bilateral Patellar Deep Tendon Reflex 1+ Diminished PT-OP-J Posture/Palpation/Skin Start: 09/29/23 09:02 Freq: Status: Active Protocol: Document 09/29/23 09:02 NM (Rec: 09/29/23 10:30 NM [id number]) Posture Evaluation Position Standing Evaluation View posterior, lateral Head/C-Spine Posture Forward Head L-Spine Posture Increased Lordosis Shoulder Posture (L) Forward,(R) Forward,(L) Elevated Scapula Posture (L) Protracted,(R) Protracted Arm Posture (L) Internally Rotated,(R) Internally Rotated Pelvis Posture Anteriorly Tilted,(L) Iliac Crest Superior Weight Distribution Weight Shifted Right Knee Posture (L) Genu Varus,(R) Genu Varus Patellar Posture (L) Superior,(R) Superior Palpation Assessment Location Lumbar spine Palpation Location L4-S1, SI joints, Palpation Findings Tenderness Palpation Details Tender to palpation along spinous processes of L4-S1, L4 is most tender. B hips Palpation Location greater trochanter, gluteals Palpation Findings Soft Tissue Tightness,Spasm, Muscle Guarding,Tenderness Palpation Details Tenderness to B greater trochanters (L>R), worse with internal/external rotation. Muscle guarding and tenderness of B gluteals, L>R. PT-OP-K Range of Motion Start: 09/29/23 09:02 Freq: Status: Active Protocol: Document 10/29/23 13:47 NM (Rec: 10/29/23 14:32 NM [id number]) Hip Goniometric Range of Motion Hip Right Flexion w/Knee Flexed 90 Internal Rotation 20 External Rotation 20 Comments Passive hip flexion 110 deg. Hip/greater trochanter pain with internal rotation 10/29/23: 30 deg ER, 25 deg IR, hip flexion 108 deg; no pain with any motion Left Flexion w/Knee Flexed 115 Internal Rotation 25 External Rotation 30 Comments Passive hip flexion 110 deg. Hip/greater trochanter pain with internal rotation. 10/29/23: 115 deg hip flexion active, hip IR 25 deg, hip ER 30 deg; no pain PT-OP-L Special Tests Start: 09/29/23 09:02 Freq: Status: Active Protocol: Document 09/29/23 09:02 NM (Rec: 09/29/23 10:30 NM [id number]) Special Tests Lumbar Spine Special Tests Straight Leg Raise Test Results negative Comments does not reproduce local or referred pain Michael/Quadrant Test Results negative Comments does not reproduce local or referred pain Hip Special Tests Scour Test Test Results negative bilaterally Anterior Labral Test Test Results negative bilaterally FADIR Test Results positive bilaterally (L>R) Comments Reproduces pain along B greater trochanter and posterior glutes. Moderate muscle guarding verena with L. Minimal pain reported in anterior hip/groin PT-OP-M Strength Start: 09/29/23 09:02 Freq: Status: Active Protocol: Document 10/29/23 13:47 NM (Rec: 10/29/23 14:32 NM [id number]) Hip Strength Hip Manual Muscle Testing Right Flexion (L2) 3+ Fair+ Extension (S1) 3+ Fair+ Abduction 3+ Fair+ Adduction 3+ Fair+ External Rotation 3+ Fair+ Internal Rotation 3+ Fair+ Comments Pain with resisted IR > flexion 10/29/23: 4/5, no pain with resisted motion Left Flexion (L2) 4- Good- Extension (S1) 4- Good- Abduction 4- Good- Adduction 4- Good- External Rotation 4- Good- Internal Rotation 3+ Fair+ Comments Pain with resisted IR 10/29/23: 4/5, no pain with resisted motion PT-OP-Q Treatments Start: 09/29/23 09:02 Freq: Status: Active Protocol: Document 11/30/23 14:00 AB (Rec: 11/30/23 16:18 AB [id number]) Therapeutic Exercises Supine Exercises bent knee fall out Side bilateral Reps/Minutes X5 Comments verbal cues figure 4 stretch Supine Exercise Name knee flexed Side right Reps/Minutes X2 each LE 60 sec Comments Verbal anad tactile cues piriformis stretch Side bilateral Reps/Minutes 60 seconds X 2 each LE Comments verbal and tactile cues Luther stretch Supine Exercise Name edge of bed Side bilateral Equipment Used hooklying with LE of mat Reps/Minutes X2 each LE Comments post manual Sitting Exercises hip IR Sitting Exercise Name AROM Side bilateral Reps/Minutes X10 Comments Verbal cues Manual Therapy Treatment Soft Tissue Mobilization right hip flexor Body Location at groin Bilateral this session Mobilization Type Cross-Friction,Rolling Intensity/Depth Moderate Body Position Hooklying Comments monitored for pain L hip Mobilization Type Cross-Friction,Rolling Intensity/Depth Moderate Body Position Sidelying Comments Monitored for pain R hip Body Location gluteal/piriformis, ADD, HS, ITB, hamstring, TFL Mobilization Type Cross-Friction,Rolling Intensity/Depth Moderate Body Position Sidelying Comments Monitored for pain Manual Techniques MET for right AI left PI Type Pubic shotgun and MET for right AI left PI Body Location SI Body Position Hooklying Reps/Duration 6X6 Comments Verbal cues for direction of force duration of hold PT-OP-T Assessment and Plan Start: 09/29/23 09:02 Freq: Status: Active Protocol: Document 11/30/23 14:00 AB (Rec: 11/30/23 16:18 AB [id number]) Physical Therapy Assessment Goals Seven Impairment balance Impairment Tinetti Short Term Goal (STG) Pt will improve Tinetti score to at least 20/28 in order to demonstate decrease fall risk and improved balance 10/29/23: STG Duration 5 weeks Materials Branch Chief Goal (LTG) Pt will improve Tinetti score to at least 24/28 in order to demonstate decrease fall risk and improved balance 10/29/23: , stumbles with nudging but able to catch self (gait 08/24, 15/16 balance) LTG Duration 10 weeks MET Six Impairment balance Impairment tandem stance <2 seconds, difficulty getting into position Short Term Goal (STG) Pt will be able to position without assistance in tandem stance without LOB in order to demonstrate improved balance required for gait, recreational dancing 10/29/23: With cueing, pt able to achieve tandem independently but tends to use 1 hand to assist with balance , can maintain 30 sec ea without support STG Duration 5 weeks PROGRESSING Fdc Goal (LTG) Pt will be able to stand at least 15 seconds in tandem stance without LOB in order to demonstrate improved balance required for gait LTG Duration 10 weeks Five Impairment gait Impairment Pt reports unable to ambulate more than 10 minutes before a seated rest break due to pain Short Term Goal (STG) Pt will be able to ambulate using LRAD or no AD for community distances (at least 600 ft) in order to demonstrate improved BLE strength, pain management, and activity tolerance 10/29/23: met w/o spc (carried) 600 ft, IND STG Duration 5 weeks MET [employer] Chief Goal (LTG) Pt will report that she can ambulate using LRAD or no AD for at least 20 minutes in order to demonstrate improved BLE strength, pain management, and activity tolerance 10/29/23: Pt reports that she is able to ambulate with spc or without spc at grocery store for >20 minutes without pain or difficultt LTG Duration 10 weeks MET Four Impairment strength Impairment R hip strength 3+/5 MMT Short Term Goal (STG) Pt will improve R hip global hip strength to at least 4/5 in order to demonstrate improved hip strength needed for gait, balance, and stairs 10/29/23: 4/5 MMT for all, no pain with resisted motion STG Duration 5 weeks MET [employer] Chief Goal (LTG) Pt will improve R hip global hip strength to at least 4+/5 in order to demonstrate improved hip strength needed for gait, balance, and stairs 11/23/23: 4/5 for flex, 4+/5 for ext/abd LTG Duration 10 weeks Three Impairment strength Impairment L hip strength 4-/5 except IR 3+/5 MMT Short Term Goal (STG) Pt will improve L global hip strength to at least 4/5 in order to demonstrate improved hip strength needed for gait, balance, and stairs 10/29/23: 4/5 MMT for all, no pain with resisted motion STG Duration 5 weeks MET [employer] Chief Goal (LTG) Pt will improve L global hip strength to at least 4+/5 in order to demonstrate improved hip strength needed for gait, balance, and stairs 11/23/23: 4/5 for hip flexion, 4+/5 for abduction/extension LTG Duration 10 weeks Two Impairment strength Impairment 30 second STS = 10 Materials Branch Chief Goal (LTG) Pt will be able to perform at least 15 sit to stands within 30 seconds without compensation or pain in order to demonstrate improved BLE strength and tolerance for activity. 10/29/23: 17 STS in 30 seconds LTG Duration 10 weeks MET One Impairment function Impairment LEFS 32/80 Fdc Goal (LTG) Pt will increase LEFS score to greater than 50/80 in order to demonstrate improved tolerance for ADLs and activity. 11/23/23: 60/80 LTG Duration 10 weeks MET Assessment Summary Assessment Patient reports she can stand up straighter end of session. Physical Therapy Plan Frequency and Duration Frequency of Treatment 2x/Week Duration of treatment (weeks) 10 Plan of Care Start Date 09/29/23 Plan of Care End Date 12/08/23 Next Visit Focus/Plan Next Note Type Treatment Note Next Visit Plan Cont STM work and hip mobilization if groin pain with hip flexion persists, Cont with hip ER/IR strengthening, lunges, lateral lunges Progress BLE strengthening: lateral step ups, touch downs, revisit step ups 4, leg press/Step up focus next session balance, step up/step back to HEP, reassess tandem stance. Trial resisted walking, unstable surfaces for balance, changing MANNIE and head movement with gait for balance , hip IR with band, review seated hip abduction, bent knee fall out to HEP [ End ] 6
--- NOTE | 2023-12-03 15:54 | PT.OTN ---
Current Diagnoses Other chronic pain (12/03/23) Pain in right knee (12/03/23) Pain in left knee (12/03/23) Dorsalgia, unspecified (12/03/23) Physical Therapy Treatment Note PT-OP-A Visit Information Start: 09/29/23 09:02 Freq: Status: Active Protocol: Document 12/03/23 13:49 NM (Rec: 12/03/23 14:33 NM [id number]) Out-Patient Physical Therapy Visit Information Visit Information Visit Type Discharge Summary Visit Note KX after 19th visit Visit Start Time 13:48 Visit Stop Time 14:30 Visit Number 16 Evaluation Information Evaluation Date 09/29/23 PT-OP-B Current Condition Start: 09/29/23 09:02 Freq: Status: Active Protocol: Document 09/29/23 09:02 NM (Rec: 09/29/23 10:30 NM [id number]) Current Condition History of Current Condition Onset Date early 2021 Current Complaints BLE weakness, pain in anterolateral hips History of Current Condition Pt presents to clinic with occasional pain in her lumbar spine, along with B hip and knee pain beginning in early 2021. Pt reports that she used to be sedentary and has lost a lot of weight; however, she is just very weak and has pain with activity. She reports difficulty with ambulation, particularly due to pain in the front of her hips. 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 She developed lymphedema recently and is being treated for that as well. Overall, she reports extensive fatigue with activities, particularly when having to stand or ambulate for greater than 10 minutes; relieved with rest. She also reports knee/hip pain with stairs, particulary during descent. She reports no falls but states that she feels off balance during standing and gait. She used to use a spc for gait for the past 10-11 months, but reports that she has felt stronger in the last 2-3 weeks and hasn't needed the spc (taking the stairs 5- 6x/day at home). Previous meniscus injury to L knee; current injury to L shoulder from lifting an object last week. 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 Treatment Goals Patient/Caregiver Goals Decrease pain, get back to ballroom dancing Current Functional Impairments (Reported) Functional Limitations- ADL's Difficulty with ADLs involving fwd trunk flexion Functional Limitations- Mobility/Gait Unable to walk/stand >10 min due to B hip and knee pain, prn spc use PT-OP-C Subjective Start: 09/29/23 09:02 Freq: Status: Active Protocol: Document 12/03/23 13:49 NM (Rec: 12/03/23 14:33 NM [id number]) OP-PT Subjective Patient Comments Patient Comments Pt wanting to discharge today as end of POC. Reports no pain . Compliant with HEP and would like to condense HEP. Reports that she has been back to dancing without pain, no pain with stairs or walking. She reports she has signficantly improved since beginning PT and notices that her legs are stronger/balance is better. PT-OP-D Balance Start: 09/29/23 09:02 Freq: Status: Active Protocol: Document 09/29/23 09:02 NM (Rec: 09/29/23 10:30 NM [id number]) OP-PT Balance Assessment Sitting Balance Static Sitting Balance Ability Normal Dynamic Sitting Balance Ability Normal Standing Balance Static Standing Balance Ability Fair Dynamic Standing Balance Ability Fair Balance Tests Romberg Romberg 10 seconds, mild trunk sway, no LOB Single Limb Standing Single Limb- Right 1 second Single Limb- Left 2 seconds Tandem Tandem Standing difficulty with getting into position; maintains <2 sec Espinal Fall Scale Copyright Permission PT-OP-E Functional Tests Start: 09/29/23 09:02 Freq: Status: Active Protocol: Document 09/29/23 09:02 NM (Rec: 09/29/23 10:30 NM [id number]) Functional Tests 30 Second Sit to Stand Test Score 10 reps Comments no pain reported but slow; no UE use Tinetti Balance and Gait Assessment Balance Score 11 Gait Score 7 Composite Score PT-OP-F Manual Assessment Start: 09/29/23 09:02 Freq: Status: Active Protocol: Document 09/29/23 09:02 NM (Rec: 09/29/23 10:30 NM [id number]) Manual Assessments Soft Tissue Assessment Soft Tissue Mobility Assessment Mild soft tissue restrictions of B lumbar paraspinals/QL, but not tender to palpation. Demos B hip flexor tightness, pain with R hip pain Joint Mobility Assessment Joint Mobility Assessment Full L hip PROM. Limited R hip PROM, demos guarding with flexion verena into IR>ER and painful. No instability of B knees noted. No clicking, popping, locking, giving out of B hips or knees. PT-OP-G Mobility & Gait Start: 09/29/23 09:02 Freq: Status: Active Protocol: Document 09/29/23 09:02 NM (Rec: 09/29/23 10:30 NM [id number]) OP Mobility Evaluation Bed Mobility Rolling Difficulty with rolling due to pain. Sits up from supine to EOB then transfers to prone OP Gait Assessment Gait Gait Assistance Required: Independent Distance (Feet) 150 Assistive Devices Assistive Device None Gait Deviations General Gait Pattern Antalgic,Flexed Trunk Factors Limiting Gait Function Factors Limiting Gait Function Decreased Activity Tolerance, Decreased Strength,Limited Range of Motion,Pain,Poor Balance Comments Gait Comments Antalgic gait pattern with fwd flexed trunk posture, mild- mod trunk sway. Lateral trunk deviation PT-OP-H Neuro Start: 09/29/23 09:02 Freq: Status: Active Protocol: Document 09/29/23 09:02 NM (Rec: 09/29/23 10:30 NM [id number]) Sensation Evaluation Gross Sensation Gross Sensation WNL Comments Summary Comments BLE intact to light touch sensation equally despite reported numbness in L 2nd and 3rd toes Deep Tendon Reflex & Clonus Assessment Deep Tendon Reflex Bilateral Patellar Deep Tendon Reflex 1+ Diminished PT-OP-J Posture/Palpation/Skin Start: 09/29/23 09:02 Freq: Status: Active Protocol: Document 09/29/23 09:02 NM (Rec: 09/29/23 10:30 NM [id number]) Posture Evaluation Position Standing Evaluation View posterior, lateral Head/C-Spine Posture Forward Head L-Spine Posture Increased Lordosis Shoulder Posture (L) Forward,(R) Forward,(L) Elevated Scapula Posture (L) Protracted,(R) Protracted Arm Posture (L) Internally Rotated,(R) Internally Rotated Pelvis Posture Anteriorly Tilted,(L) Iliac Crest Superior Weight Distribution Weight Shifted Right Knee Posture (L) Genu Varus,(R) Genu Varus Patellar Posture (L) Superior,(R) Superior Palpation Assessment Location Lumbar spine Palpation Location L4-S1, SI joints, Palpation Findings Tenderness Palpation Details Tender to palpation along spinous processes of L4-S1, L4 is most tender. B hips Palpation Location greater trochanter, gluteals Palpation Findings Soft Tissue Tightness,Spasm, Muscle Guarding,Tenderness Palpation Details Tenderness to B greater trochanters (L>R), worse with internal/external rotation. Muscle guarding and tenderness of B gluteals, L>R. PT-OP-K Range of Motion Start: 09/29/23 09:02 Freq: Status: Active Protocol: Document 12/03/23 13:49 NM (Rec: 12/03/23 14:33 NM [id number]) Hip Goniometric Range of Motion Hip Right Flexion w/Knee Flexed 90 Internal Rotation 20 External Rotation 20 Comments Passive hip flexion 110 deg. Hip/greater trochanter pain with internal rotation 10/29/23: 30 deg ER, 25 deg IR, hip flexion 108 deg; no pain with any motion 12/03/23: 110 deg hip flexion, 30 deg ER/IR Left Flexion w/Knee Flexed 115 Internal Rotation 25 External Rotation 30 Comments Passive hip flexion 110 deg. Hip/greater trochanter pain with internal rotation. 10/29/23: 115 deg hip flexion active, hip IR 25 deg, hip ER 30 deg; no pain 12/03/23: 120 deg knee flexion active, 30 deg IR, 35 deg ER PT-OP-L Special Tests Start: 09/29/23 09:02 Freq: Status: Active Protocol: Document 09/29/23 09:02 NM (Rec: 09/29/23 10:30 NM [id number]) Special Tests Lumbar Spine Special Tests Straight Leg Raise Test Results negative Comments does not reproduce local or referred pain Michael/Quadrant Test Results negative Comments does not reproduce local or referred pain Hip Special Tests Scour Test Test Results negative bilaterally Anterior Labral Test Test Results negative bilaterally FADIR Test Results positive bilaterally (L>R) Comments Reproduces pain along B greater trochanter and posterior glutes. Moderate muscle guarding verena with L. Minimal pain reported in anterior hip/groin PT-OP-M Strength Start: 09/29/23 09:02 Freq: Status: Active Protocol: Document 12/03/23 13:49 NM (Rec: 12/03/23 14:33 NM [id number]) Hip Strength Hip Manual Muscle Testing Right Flexion (L2) 3+ Fair+ Extension (S1) 3+ Fair+ Abduction 3+ Fair+ Adduction 3+ Fair+ External Rotation 3+ Fair+ Internal Rotation 3+ Fair+ Comments Pain with resisted IR > flexion 10/29/23: 4/5, no pain with resisted motion 12/03/23: 4+/5 for all, no pain with resisted motion Left Flexion (L2) 4- Good- Extension (S1) 4- Good- Abduction 4- Good- Adduction 4- Good- External Rotation 4- Good- Internal Rotation 3+ Fair+ Comments Pain with resisted IR 10/29/23: 4/5, no pain with resisted motion 12/03/23: 4+/5 for all, no pain with resisted motion PT-OP-Q Treatments Start: 09/29/23 09:02 Freq: Status: Active Protocol: Document 12/03/23 13:49 NM (Rec: 12/03/23 14:33 NM [id number]) Therapeutic Exercises Supine Exercises bent knee fall out Side bilateral Reps/Minutes 1x5 Comments verbal cues for TrA knee to chest stretch Supine Exercise Name knee to chest with towel roll at groin Side right Reps/Minutes 1x60 Comments good feedback with stretch, pain free Sitting Exercises hip IR Side bilateral Resistance AROM Equipment Used pillow between knees Reps/Minutes 2x10 Comments medium difficult; cued for pillow squeeze piriformis stretch Sitting Exercise Name piriformis stretch in sitting with foot crossed over leg Side bilateral Reps/Minutes 1x60 ea Comments pain free hip abduction Sitting Exercise Name seated hip abduction with band Side bilateral Resistance light green band Reps/Minutes 1. 2x10, 2. 1x60 hold Comments pain free Standing Exercises hamstring stretch Standing Exercise Name staggered stance Side bilateral Equipment Used hand support on plinth Reps/Minutes 1x60 Comments pain free, reports good stretch, post squats marching Standing Exercise Name band around toes Side bilateral Resistance lvl 1 tb Equipment Used hand support for balance Reps/Minutes 2x10 Comments pain free, alternating lateral lunge Side bilateral Resistance AROM Equipment Used prn hand support Reps/Minutes 2x10 Comments pain free lunge Standing Exercise Name minilunge Side bilateral Resistance AROM Equipment Used 1 hand support Reps/Minutes 2x10 Comments pain free squat with band Standing Exercise Name squat 1/2 to chair band above knees Side bilateral Resistance lvl 3 band around thighs Reps/Minutes 2x10 Comments pain free Side steps Standing Exercise Name side step with band Side bilateral Resistance lvl 3 band around ankles Reps/Minutes 8 ftx4 ea Comments pain free Self-Care/Home Management Treatment Education Patient Education Home Exercise Program,Joint Protection,Pain Management, Safety Other Education 4 minutes- educated on maintenance program 3x/wk, reviewed past HEP and provided updated HEP. Pt can alternate between maintenance program and previous HEP as desired. Educated on joint protection with exercise as pt planning to return to gym, modalities for pain relief, stretching with exercise. Educated to follow up with PCP if symptoms return, change or worsen. PT-OP-T Assessment and Plan Start: 09/29/23 09:02 Freq: Status: Active Protocol: Document 12/03/23 13:49 NM (Rec: 12/03/23 14:33 NM [id number]) Physical Therapy Assessment Goals Seven Impairment balance Impairment Tinetti Short Term Goal (STG) Pt will improve Tinetti score to at least 20/28 in order to demonstate decrease fall risk and improved balance 10/29/23: STG Duration 5 weeks Residential Goal (LTG) Pt will improve Tinetti score to at least 24/28 in order to demonstate decrease fall risk and improved balance 10/29/23: , stumbles with nudging but able to catch self (gait 08/24, balance) LTG Duration 10 weeks MET Six Impairment balance Impairment tandem stance <2 seconds, difficulty getting into position Short Term Goal (STG) Pt will be able to position without assistance in tandem stance without LOB in order to demonstrate improved balance required for gait, recreational dancing 10/29/23: With cueing, pt able to achieve tandem independently but tends to use 1 hand to assist with balance , can maintain 30 sec ea without support STG Duration 5 weeks MET Hospital Orderly Goal (LTG) Pt will be able to stand at least 15 seconds in tandem stance without LOB in order to demonstrate improved balance required for gait 12/03/23: 30 seconds, able to maintain and position LTG Duration 10 weeks MET Five Impairment gait Impairment Pt reports unable to ambulate more than 10 minutes before a seated rest break due to pain Short Term Goal (STG) Pt will be able to ambulate using LRAD or no AD for community distances (at least 600 ft) in order to demonstrate improved BLE strength, pain management, and activity tolerance 10/29/23: met w/o spc (carried) 600 ft, IND STG Duration 5 weeks MET Residential Goal (LTG) Pt will report that she can ambulate using LRAD or no AD for at least 20 minutes in order to demonstrate improved BLE strength, pain management, and activity tolerance 10/29/23: Pt reports that she is able to ambulate with spc or without spc at grocery store for >20 minutes without pain or difficultt LTG Duration 10 weeks MET Four Impairment strength Impairment R hip strength 3+/5 MMT Short Term Goal (STG) Pt will improve R hip global hip strength to at least 4/5 in order to demonstrate improved hip strength needed for gait, balance, and stairs 10/29/23: 4/5 MMT for all, no pain with resisted motion STG Duration 5 weeks MET Hospital Orderly Goal (LTG) Pt will improve R hip global hip strength to at least 4+/5 in order to demonstrate improved hip strength needed for gait, balance, and stairs 11/23/23: 4/5 for flex, 4+/5 for ext/abd 12/03/23: 4+/5 for all, no pain LTG Duration 10 weeks Three Impairment strength Impairment L hip strength 4-/5 except IR 3+/5 MMT Short Term Goal (STG) Pt will improve L global hip strength to at least 4/5 in order to demonstrate improved hip strength needed for gait, balance, and stairs 10/29/23: 4/5 MMT for all, no pain with resisted motion STG Duration 5 weeks MET Hospital Orderly Goal (LTG) Pt will improve L global hip strength to at least 4+/5 in order to demonstrate improved hip strength needed for gait, balance, and stairs 11/23/23: 4/5 for hip flexion, 4+/5 for abduction/extension 12/03/23: 4+/5 for all, no pain LTG Duration 10 weeks Two Impairment strength Impairment 30 second STS = 10 Hospital Orderly Goal (LTG) Pt will be able to perform at least 15 sit to stands within 30 seconds without compensation or pain in order to demonstrate improved BLE strength and tolerance for activity. 10/29/23: 17 STS in 30 seconds LTG Duration 10 weeks MET One Impairment function Impairment LEFS 32/80 Residential Goal (LTG) Pt will increase LEFS score to greater than 50/80 in order to demonstrate improved tolerance for ADLs and activity. 11/23/23: 60/80 LTG Duration 10 weeks MET Progress Towards Goals Progress Towards Goals Goals Met Progress Comments All goals met. Improved strength and hip mobility. Pain free Assessment Summary Assessment Pt tolerated session well and continues to be pain free. Session emphasis on reviewing past HEP and creating final maintenance HEP for independent exercise. Continued with hip stretching for mobilization, specifically piriformis and glutes to reduce soft tissue limitations . Reinforced with hip IR strengthening AROM as pt still challenged by resistance. Performed and progressed hip abduction, squats, and marches . Pt with good form and pain free for all. Does not demo compensations and requires minimal cues. Pt has been seen 15 times since IE in September 2023 for hip and knee pain, BLE strengthening. Pt reports that she has very few instances of pain. Pt reports that she is back to all ADLs/IADLs including dancing/recreational activities without pain or limitation. Pt has met all goals. She demos improvements in B hip strength and AROM, improving both by several degrees. Pt is not limited in ambulation distance but does continue to use a spc prn for support when fatigued. Her Tinetti score demos improvements in gait, balance, decreased fall risk. PT and pt discussed discharge as pt has met goals; pt wants to discharge today as she feels she has improved significantly and PT in agreement. PT educated pt on maintenance program, provided maintenance HEP, and educated pt on returning to PCP if symptoms return/change/worsen. Pt verbalizes agreement and is safe to discharge to independent exercise. Physical Therapy Plan Frequency and Duration Frequency of Treatment 2x/Week Duration of treatment (weeks) 10 Plan of Care Start Date 09/29/23 Plan of Care End Date 12/08/23 Therapeutic Interventions Therapeutic Interventions Balance Training,Coordination Training,Gait Training,Home Exercise Program,Joint Mobilizations,Manual Therapy, Neuromuscular Re-education, Orthotic/Prosthetic Management ,Patient/Caregiver Education, Self-Care/Home Management, Sensory Integration,Soft Tissue Mobilization,Taping, Therapeutic Activities, Therapeutic Exercises Modalities Cold Pack/Ice Massage,Hot Packs Discharge Physical Therapy Discharge Reasons Goals Met Discharge Comments All goals met. Pt pain free, at end of plan of care, requesting discharge Next Visit Focus/Plan Next Visit Plan Discharge to independent exercise [ End ]
== END 2023-12-08 08:36 | disposition home or self-care (01) ==
LOC: PHYS 13:45
PROVIDERS: Family Provider Family Medicine; PCP Family Medicine; Referring Provider Family Medicine; Visit Provider Family Medicine
DX: M25.561 Pain in right knee (principal); G89.29 Other chronic pain; M25.562 Pain in left knee; M54.9 Dorsalgia, unspecified
CPT/HCPCS: 97110; 97112; 97116; 97140; 97162; 97530; 97535

== ENCOUNTER → 2024-01-18 07:06 | Outpatient (CLI) | payer MEDICARE, BC, SELFPAY ==
[2024-01-18 10:01] LABS: Cholesterol 134 mg/dL (140-199); HDL Cholesterol 52 mg/dL (40-60); LDL Cholesterol Calculated 67 mg/dL (<100); Triglycerides 77 mg/dL (35-150)
[2024-01-18 10:04] LABS: High Sensitivity CRP - Cardiac 1.4 mg/L (1.0-3.0)
== END ==
LOC: LAB 07:07
PROVIDERS: Family Provider Family Medicine; PCP Family Medicine; Referring Provider Family Medicine; Visit Provider Family Medicine
DX: I10 Essential (primary) hypertension (principal); E78.2 Mixed hyperlipidemia
CPT/HCPCS: 36415; 80061; 86140

== ENCOUNTER → 2024-04-12 14:15 | Outpatient (CLI) | payer MEDICARE, BC, SELFPAY ==
--- NOTE | 2024-04-12 14:16 | DI.US.S_ITS ---
PROCEDURE: US THYROID INDICATIONS: ENLARGED THYROID TECHNIQUE: Real-time scanning was performed of the thyroid gland, with image documentation. COMPARISON: None. FINDINGS: Thyroid: Right lobe measures 6.3 x 2.5 x 2.8 cm. Left lobe measures 3.9 x 1.7 x 1.5 cm. Isthmus is 0.5 cm thick. Echotexture is heterogeneous. Nodule number: 1 Location: Right superior Size: 1.3 x 0.8 x 1.0 cm. Composition: Solid Echogenicity: Hypoechoic Shape: wider than tall. Margins: Smooth Echogenic foci: Non Total points: 4 ACR TI-RADS category: 4 Nodule number: 2 Location: Right mid inferior Size: 4.5 x 2.4 x 2.8 cm. Composition: Solid Echogenicity: Hypoechoic Shape: wider than tall. Margins: Lobulated Echogenic foci: Macrocalcification Total points: 5 ACR TI-RADS category: 4 Nodule number: 3 Location: Right superior Size: 1.4 x 1.9 x 1.5 cm. Composition: Solid Echogenicity: Hypoechoic Shape: wider than tall. Margins: Smooth Echogenic foci: Non Total points: 4 ACR TI-RADS category: 4 IMPRESSION: Lesions 1 considered category 4. Secondary to size, interval annual imaging follow-up is recommended as below. Lesion 2 is considered category 4. Secondary to size, FNA is recommended. Lesion 3 is considered category 4. Secondary to size, FNA is recommended ACR TI-RADS definitions and recommendations: TI-RADS 1 (benign): 0 points. FNA not needed. TI-RADS 2 (not suspicious): 2 points. FNA not needed. TI-RADS 3 (mildly suspicious): 3 points. * FNA if 2.5 cm or larger, follow up if 1.5 cm or larger (at 1, 3, and 5 years). TI-RADS 4 (moderately suspicious): 4-6 points. * FNA if 1.5 cm or larger, follow up if 1 cm or larger (at 1, 2, 3, and 5 years). TI-RADS 5 (highly suspicious): 7 points or more. * FNA if 1 cm or larger, follow up if 0.5 cm or larger (every year for 5 years). Dictated by: Janki Reed M.D. on 04/12/2024 at 22:03 Approved by: Jnaki Reed M.D. on 04/12/2024 at 22:06
== END ==
PROVIDERS: Family Provider Family Medicine; PCP Family Medicine; Referring Provider Family Medicine; Visit Provider Family Medicine
DX: E04.2 Nontoxic multinodular goiter (principal); E03.9 Hypothyroidism, unspecified
CPT/HCPCS: 76536

== ENCOUNTER → 2024-04-20 16:13 | Outpatient (CLI) | payer MEDICARE, BC, SELFPAY ==
[2024-04-20 17:33] LABS: Alanine Aminotransferase 20 IU/L (<35); Albumin Globulin Ratio 1.3 (1.0-2.8); Alkaline Phosphatase 72 U/L (38-126); Aspartate Aminotransferase 24 IU/L (14-36); Bilirubin Total 0.6 mg/dL (0.2-1.3); Blood Urea Nitrogen 34 mg/dL (7-17); Calcium 9.7 mg/dL (8.4-10.2); Carbon Dioxide 28 mmol/L (22-32); Chloride 107 mmol/L (98-107); Estimated Glomerular Filt Rate > 60 mL/min (>60); Glucose 158 mg/dL (80-110); HEMOLYSIS < 15 (0-50); Potassium 5.1 mmol/L (3.4-5.1); Sodium 140 mmol/L (137-145)
[2024-04-20 17:49] LABS: Free T4, Direct Thyroxine 1.24 ng/dL (0.78-2.19)
[2024-04-20 17:55] LABS: Add Manual Diff / Slide Review NO; Basophils Absolute Auto 100 /uL (0-100); Basophils Percent Auto 0.5 % (0-2); Eosinophils Absolute Auto 400 /uL (0-450); Eosinophils Percent Auto 2.7 % (2-4); Hematocrit 43.5 % (36-46); Hemoglobin 14.6 g/dL (12.0-16.0); Lymphocytes Absolute Auto 3100 /uL (1100-4500); Lymphocytes Percent Auto 22.9 % (25-40); Mean Corpuscular HGB Conc 33.6 % (30-36); Mean Corpuscular Hemoglobin 30.9 PG (26-34); Monocytes Absolute Auto 900 /uL (0-900); Monocytes Percent Auto 6.7 % (3-14); Neutrophils Absolute Auto 9100 /uL (1500-7000); Neutrophils Percent Auto 67.2 % (50-75); Platelet Count 197 X10^3/uL (150-400); Red Blood Cell Count 4.73 X10^6/uL (4.0-5.2); Red Cell Distribution Width 13.8 % (11.6-14.8); White Blood Cell Count 13.5 X10^3/uL (4.5-11.0)
[2024-04-20 18:04] LABS: Thyroid Stimulating Hormone 1.32 uIU/mL (0.47-4.68)
== END ==
PROVIDERS: Family Provider Family Medicine; PCP Family Medicine; Referring Provider Family Medicine; Visit Provider Family Medicine
DX: E03.9 Hypothyroidism, unspecified (principal); E04.9 Nontoxic goiter, unspecified
CPT/HCPCS: 36415; 80053; 84439; 84443; 85025

== ENCOUNTER → 2024-09-08 13:37 | Outpatient (CLI) | payer MEDICARE, BC, SELFPAY ==
--- NOTE | 2024-09-08 13:39 | DI.US.S_ITS ---
PROCEDURE: US PELVIC COMPLETE INDICATIONS: FOLLOW-UP RIGHT ADNEXAL CYST TECHNIQUE: Real-time scanning was performed of the pelvic organs, with image documentation. Additional endovaginal scanning was necessary due to incomplete visualization of the adnexal and endometrial structures by transabdominal scanning. COMPARISON: [facility], US, US PELVIC COMPLETE, 07/23/2023, 13:40. FINDINGS: Uterus: Uterus is anteverted and normal in size at 5.8 x 3.2 x 5.1 cm. The myometrium is homogeneous. The endometrium measures 2.7 mm combined thickness. Ovaries: Ovaries are not seen. Right adnexal simple cystic structure measuring 3.4 x 6.0 x 2.1 cm, previously measuring 2.8 x 6.0 x 2.5 cm. Other: No pathologic free abdominal or pelvic fluid. IMPRESSION: Similar appearance of right adnexal simple cystic structure measuring up to 6 cm. Recommend continued follow-up ultrasound to assess stability. Uterus and endometrium are normal in appearance. Ovaries are not seen. We strive to produce accurate, complete, and clear reports of imaging services. To assist us in improving patient care, this report was composed using standard report templates and voice recognition software. Therefore, it may contain abnormal punctuation, insertions and/or omissions. Occasional wrong-word or sound-alike substitutions may occur. Though we review the report and make efforts to correct it, we do recommend that the report be read carefully in proper context to recognize any text inaccuracies. Dictated by: Chico Bowling M.D. on 09/08/2024 at 14:24 Approved by: Chico Bowling M.D. on 09/08/2024 at 14:26
== END ==
PROVIDERS: Family Provider Family Medicine; PCP Family Medicine; Referring Provider Family Medicine; Visit Provider Family Medicine
DX: N83.201 Unspecified ovarian cyst, right side; N94.89 Other specified conditions associated with female genital organs and menstrual cycle; R93.5 Abnormal findings on diagnostic imaging of other abdominal regions, including retroperitoneum
CPT/HCPCS: 76830; 76856

== ENCOUNTER → 2024-10-30 10:58 | Outpatient (CLI) | payer MEDICARE, BC, SELFPAY ==
[2024-10-30 12:59] LABS: Alanine Aminotransferase 23 IU/L (<35); Albumin Globulin Ratio 1.7 (1.0-2.8); Alkaline Phosphatase 77 U/L (38-126); Aspartate Aminotransferase 25 IU/L (14-36); BUN Creatinine Ratio 40.6 (6-22); Bilirubin Total 0.6 mg/dL (0.2-1.3); Blood Urea Nitrogen 28 mg/dL (7-17); Calcium 9.8 mg/dL (8.4-10.2); Carbon Dioxide 23 mmol/L (22-32); Chloride 107 mmol/L (98-107); Estimated Glomerular Filt Rate > 60 mL/min (>60); Globulin 2.3 g/dL (1.7-4.1); Glucose 88 mg/dL (80-110); HEMOLYSIS < 15 (0-50); Potassium 4.5 mmol/L (3.4-5.1); Sodium 140 mmol/L (137-145); Total Protein 6.3 g/dL (6.3-8.2)
[2024-10-30 13:10] LABS: Free T3, Triiodothyronine Free 4.06 pg/mL (2.77-5.27); Free T4, Direct Thyroxine 1.24 ng/dL (0.78-2.19)
[2024-10-30 13:24] LABS: Thyroid Stimulating Hormone 1.19 uIU/mL (0.47-4.68)
[2024-11-05 15:39] LABS: Triiodothyronine T3 Reverse 15.3 ng/dL (.)
== END ==
PROVIDERS: Family Provider Family Medicine; PCP Family Medicine; Referring Provider Family Medicine; Visit Provider Family Medicine
DX: E03.9 Hypothyroidism, unspecified (principal)
CPT/HCPCS: 36415; 80053; 84439; 84443; 84481; 84482

== ENCOUNTER 2025-03-17 19:56 | Emergency (ER) | payer MEDICARE, BC, SELFPAY ==
[2025-03-17 19:59] VITALS: BP 162/74; PULSE 64; RESP 20; TEMP 36.6; O2SAT 97; BMI 35.9
== END 2025-03-17 22:11 | disposition left against medical advice (07) ==
PROVIDERS: Emergency Provider Emergency Medicine; Family Provider Family Medicine; PCP Family Medicine
DX: R51.9 Headache, unspecified (principal)
CPT/HCPCS: 99281

== ENCOUNTER → 2025-03-19 09:21 | Outpatient (CLI) | payer MEDICARE, BC, SELFPAY | PROVIDERS: Chiropractor; Family Provider Family Medicine; PCP Family Medicine; Referring Provider Family Medicine; Visit Provider Family Medicine | DX: M31.6 Other giant cell arteritis (principal) | CPT/HCPCS: 36415; 85651; 86140 ==

== ENCOUNTER → 2025-03-21 14:41 | Outpatient (CLI) | payer MEDICARE, BC, SELFPAY ==
[2025-03-21 15:49] LABS: Free T3, Triiodothyronine Free 3.31 pg/mL (2.77-5.27)
[2025-03-21 16:03] LABS: TSH w/ Reflex to FT4 0.57 uIU/mL (0.47-4.68)
== END ==
PROVIDERS: Family Provider Family Medicine; PCP Family Medicine; Referring Provider Family Medicine; Visit Provider Family Medicine
DX: E03.9 Hypothyroidism, unspecified (principal)
CPT/HCPCS: 36415; 84443; 84481; 84482

== ENCOUNTER → 2025-04-09 10:07 | Outpatient (CLI) | payer MEDICARE, BC, SELFPAY ==
--- NOTE | 2025-04-09 10:09 | DI.RAD.S_ITS ---
PROCEDURE: XR FOREARM LT 2V INDICATIONS: r/o fracture TECHNIQUE: 2 views of the forearm were acquired. COMPARISON: None. FINDINGS: Bones: Impacted fracture involving distal radius with extension into radiocarpal joint space. No other fracture or dislocation. Soft tissues: No suspicious soft tissue calcifications or masses. IMPRESSION: Distal radial fracture as above. No proximal to mid forearm fracture. Dictated by: Moe Nj M.D. on 04/09/2025 at 10:54 Approved by: Moe Nj M.D. on 04/09/2025 at 10:55
--- NOTE | 2025-04-09 10:09 | DI.RAD.S_ITS ---
PROCEDURE: XR HAND LT MIN 3V INDICATIONS: Please evaluate for fracture TECHNIQUE: 3 views of the hand(s) acquired. COMPARISON: [facility], CR, XR FOREARM LT 2V, 04/09/2025, 9:26. [facility], CR, XR WRIST LT MIN 3V, 04/09/2025, 9:23. FINDINGS: Bones: No fractures or dislocations. Carpal bones are normally aligned. No suspicious bony lesions. Degenerative changes are seen throughout, which are most prominent involving the 1st carpometacarpal joint. Milder degenerative changes are seen elsewhere. Soft tissues: No suspicious soft tissue calcifications. IMPRESSION: No displaced fracture is seen on these plain films. Dictated by: Joseph Cortes M.D. on 04/09/2025 at 9:56 Approved by: Joseph Cortes M.D. on 04/09/2025 at 9:57
--- NOTE | 2025-04-09 10:09 | DI.RAD.S_ITS ---
PROCEDURE: XR WRIST LT MIN 3V INDICATIONS: r/o fracture TECHNIQUE: 4 views of the wrist were acquired. COMPARISON: None. FINDINGS: Bones: Slightly impacted and minimally displaced fracture involving distal radius is seen with cortical irregularity and possible intra-articular extension. Osteoarthritic changes are noted in wrist joints. No other fracture or dislocation. No suspicious bony lesions. Soft tissues: No suspicious soft tissue calcifications. IMPRESSION: Suggestion of slightly impacted and likely intra-articular fracture of distal radius. Wrist joint osteoarthritis. Dictated by: Moe Nj M.D. on 04/09/2025 at 10:53 Approved by: Moe Nj M.D. on 04/09/2025 at 10:54
== END ==
PROVIDERS: Family Provider Family Medicine; PCP Family Medicine; Referring Provider Chiropractor; Visit Provider Chiropractor
DX: S52.502A Unspecified fracture of the lower end of left radius, initial encounter for closed fracture (principal); S50.12XA Contusion of left forearm, initial encounter; S60.212A Contusion of left wrist, initial encounter; S60.222A Contusion of left hand, initial encounter; M19.032 Primary osteoarthritis, left wrist; X58.XXXA Exposure to other specified factors, initial encounter
CPT/HCPCS: 73090; 73110; 73130